=== PATIENT | male | born 1940 | race Caucasian/White ===

== ENCOUNTER 2021-08-16 13:15 | Outpatient (RCR) | payer MEDICARE, SELFPAY ==
[2021-07-27 09:43] VITALS: BP 138/80; PULSE 103; TEMP 36.1; BMI 21.7
--- NOTE | 2021-07-27 14:03 | HP.PCM_ITS ---
History of Present Illness Date of Service: 07/27/21 Chief Complaint: left medial ankle ulcer History of Wound: Viral is a pleasant 81-year-old male who presents to the wound healing center for an initial evaluation of his left medial ankle ulcer. He has a past medical history significant for liver transplant (in 1998), thrombocytopenia, stage III CKD, tobacco abuse, and left ankle fracture (in 1959). He states that following his ankle fracture in 1959, a screw was placed in his left ankle. The left ankle screw subsequently became infected and was removed. Since that time, he has had frequent occurrence of left ankle ulcers. These ulcers have occurred at various sites within the medial left ankle region. He has previously been seen by [facility] wound care for his left ankle ulcers. He states that this particular left medial ankle ulcer onset approximately 2 mo nths ago. He has been using Anasept ointment daily to his medial left ankle ulcer (which he had previously received from [facility] wound center). He is washing his ankle ulcer with antibacterial soap and water. He does not use compression. The patient denies fever, chills, general malaise, or poor appetite. The patient has not had increased redness, swelling, or purulent/malodorous drainage from affected area. He has not had any recent wound cultures. He had lab work in April 2021, which was reviewed today, and was significant for chronic kidney disease (creatinine 1.70, estimated GFR 39), and low platelets (130). He reports that at some point he did undergo vascular studies of his lower extremities at the [facility], but does not recall when these were completed. [facility] Medical History (Updated 07/27/21 @ 14:16 by Мария Donovan YARN EXAMINER, YARN EXAMINER-C) History of fracture of left ankle Stage III chronic kidney disease Tobacco use Venous stasis ulcer of 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 ROS Constitutional Constitutional: Denies chills, fever(s) or night sweats Eyes Eyes: Denies change in vision or double vision ENT HEENT: Denies lip swelling or tongue swelling Cardiovascular Cardiovascular: Denies chest pain, leg edema or palpitations Respiratory/Chest Respiratory/Chest: Denies cough or wheezing Gastrointestinal Gastrointestinal: Denies diarrhea, nausea or vomiting Genitourinary Genitourinary: Denies dysuria or hematuria Musculoskeletal Musculoskeletal: Denies extremity pain Integumentary Integumentary: Reports wounds; Denies rash Neurologic Neurologic: Denies abnormal speech or focal weakness Endocrine Endocrinology: Denies cold intolerance, heat intolerance, polydipsia or polyuria Hematologic/Lymphatic Hematologic/Lymphatic: Reports easy bleeding and easy bruising Vital Signs Vital Signs Vital Signs: 07/27/21 09:43 Temperature 96.9 F L Temperature Source Temporal Pulse Rate 103 H Blood Pressure 138/80 H Blood Pressure Mean 99 Blood Pressure Source Monitor Weight Weight: 135 lb Body Mass Index (BMI) 21.7 Physical Exam Const alert, no apparent distress and healthy appearing General Appearance: cooperative, comfortable and well kempt HEENT Head and Scalp: normocephalic and atraumatic Eyes EOMs intact bilaterally Neck supple and no JVD Resp normal respiratory effort, normal air movement and no use of accessory muscles Auscultation: clear to auscultation bilaterally; Negative for crackles, rales, rhonchi or wheezes Cardio regular rate and regular rhythm GI normal to inspection, nondistended, normoactive bowel sounds Extremity normal capillary refill, no joint enlargement and no calf tenderness General Extremity: edema left lower extremity mild Peripheral Pulses: Yes dorsalis pedis pulses present left 2+ Skin General Skin Exam: venous stasis Wounds: wounds noted No malodorous Wound Narrative: Medial left ankle ulcer with subcutaneous layer exposed. No tunneling, undermining, or probing to bone. No periulcer erythema or warmth. No significant tenderness to palpation. No purulent/malodorous drainage. Neuro moves all extremities and no focal motor deficits Psych mental status grossly normal, cooperative and affect normal Debridement Note Debridement Note Wound debrided: Medial left ankle ulcer Laterality: Left Type of Debridement: Excisional debridement Anesthesia Used: 5% Lidocaine Gel Depth: in the subcutaneous layer Percentage of wound debrided: 100 Instrument Used: 5mm curette Tissue Removed: Slough and devitalized tissue Severity: Fat Layer Exposed Amount of bleeding with debridement: Mild Bleeding Controlled with: Pressure Patient tolerated procedure: Patient tolerated procedure well Post-Debridement Measurements and Additional Note: Post-Debridement Measurements/Treatment WC - Nurse 1 - General Ulcer Assessment Start: 07/27/21 09:41 Freq: Status: Active Protocol: BYRON Activity Type Activity Date Activity User E-Sign Co-Sign Detail Recorded Client Recorded Date Recorded By Document 07/27/21 09:43 KEN [id number] 07/27/21 09:50 KEN 07/27/21 09:43 WC - Today's Visit Information Type of service Initial Visit Arrival Mode Ambulatory Patient Identification Verified (Name & Yes ) Patient Requires Transmission-Based No Precautions Height and Weight Height 5 ft 6 in Weight 135 lb Weight in Pounds 135.0 lbs Body Mass Index (BMI) 21.7 BMI Classification Normal BSA - [place] 1.69 Vital Signs Temperature (97.8 F-99.1 F) 96.9 F L Temperature Source Temporal Pulse Rate (60-100) 103 H Pulse Location Monitor Blood Pressure (90/60-120/80) 138/80 H Blood Pressure Mean (mm Hg) 99 Source Monitor History Since Last Visit- (Skip if this is Patient's initial visit) Left Footwear Regular Shoe Right Footwear Regular Shoe Lower Extremity Assessment/ Foot Assessment/ Toe Nail Assessment Left -Polpliteal Pulses Palpable Yes -Popliteal Doppler Multiphasic -Posterior Tibial Palpable Yes -Posterior Tibial Doppler Multiphasic -Hair Growth on Legs Yes -Hair Growth on Toes Yes -Capillary Refill Less than 3 Seconds -Thick Yes -Discolored Yes WC - Nurse 1 - General Ulcer Measurement Start: 07/27/21 09:41 Freq: Status: Active Protocol: Activity Type Activity Date Activity User E-Sign Co-Sign Detail Recorded Client Recorded Date Recorded By Document 07/27/21 09:43 KEN [id number] 07/27/21 09:50 KEN 07/27/21 09:43 Wound Center Nurse 1 #1 L medial ankle -Current Size (cm) - Length 1.1 -Current Size (cm) - Width 2 -Current Size (cm) - Depth 0.2 -Total Square Cm 2.2 -Date of Last Picture (Recall this 07/27/21 field) -Photo Taken Yes -Epithelialization None Present -Tunneling No -Undermining/Tunneling No -Circular Undermining No -Exudate Amt Medium -Exudate Type Serosanguineous -Wound Margin Distinct, Outline Attached -Granulation Amt None Present (0 %) -Slough/Fibrin Yes -Necrosis Amt Large (67-100%) -Necrotic Tissue Type Adherent Slough -Structure Exposed N/A -Texture (Prema-wound Skin Appearance) No Abnormality, Assessed -Moisture (Prema-wound Skin Appearance) No Abnormality, Assessed -Color (Prema-wound Skin Appearance) No Abnormality, Assessed -Temperature (Prema-wound Skin No Abnormality Appearance) (Pt Warm) -Tenderness on Palpation (Prema-wound No Skin Appearance) -Ulcer Cleansing Soap and Water -Foul Odor after Cleansing No -Anesthetic Used 5% Lidocaine Gel Right Calf (cm) 29 Right Ankle (cm) 21 Left Calf (cm) 28.5 Left Ankle (cm) 23 WC - Nurse 2 - General Ulcer CM Notes Start: 07/27/21 09:41 Freq: Status: Active Protocol: Activity Type Activity Date Activity User E-Sign Co-Sign Detail Recorded Client Recorded Date Recorded By Document 07/27/21 13:33 PL [id number] 07/27/21 13:35 PL 07/27/21 13:33 Wound Center Nurse 2 #1 L medial ankle -Time 10:20 -Correct Patient Yes -Correct Side, Site, Position Yes -Correct Procedure Yes -Procedure Performed Yes -Type of Procedure Debridement -Clinical Debridement Subcutaneous -Tissue Removed Subcutaneous -Post Debridement (cm) - Length 1.5 -Post Debridement (cm) - Width 2.5 -Post Debridement (cm) - Depth 0.2 -Total Square (Post) (cm) 3.75 -Area of Debridement (cm) - Length 1.5 -Area of Debridement (cm) - Width 2.5 -Total Square (Area) (cm) 3.75 -Tunneling No -Undermining/Tunneling No -Circular Undermining No -Wound/Ulcer Outcome Not Healed -Ulcer Cleansing Rinsed/ Irrigated with Saline -Foul Odor after Cleansing No -Bioengineered Tissue No -Bleeding Controlled with Pressure -Treatment Response Procedure Tolerated Well -Debridement - Subq, 1st 20sq cm Yes WC - Nurse 3 - General Ulcer D/C NN Start: 07/27/21 09:41 Freq: Status: Active Protocol: Activity Type Activity Date Activity User E-Sign Co-Sign Detail Recorded Client Recorded Date Recorded By Document 07/27/21 10:46 AK [id number] 07/27/21 10:47 AK 07/27/21 10:46 Wound Care Nurse 3 -Ulcer Cleansing Rinsed/ Irrigated with Saline -Foul Odor after Cleansing No -Negative Pressure Wound Therapy N/A -Primary Dressing Applied Aquacel AG 4x4 -Primary Dressing Covered/Secured with Dry Gauze, Secured with Tape -Aquacel AG 4x4 1 Left -Tubular Bandage Double Layer -Size of Tubigrip Used Size E -Size E ($) 2 WC - Visit Discharge Discharge Condition Stable Ambulatory Status Ambulatory Transportation Private Auto Medication Reconcilliation completed & No provided to patient/care provider Clinical Summary of Care Provided Yes Charges/Coding Visit Charges Office Visits / Consults: [id number] OV L4 New Procedures Integumentary [id number]: [id number] Lary subq tissue 20 sq cm/< Assessment/Plan Assessment/Plan (1) Venous stasis ulcer of 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: CODE(S): I83.023 - Varicose veins of left lower extremity with ulcer of ankle; L97.322 - Non-pressure chronic ulcer of 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 QUALIFIERS: Varicose vein presence: with varicose veins Qualified Code(s): I83.023 - Varicose veins of left lower extremity with ulcer of ankle; L97.322 - Non-pressure chronic ulcer of 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 (2) Tobacco use: CODE(S): Z72.0 - Tobacco use (3) Stage III chronic kidney disease: CODE(S): N18.30 - Chronic kidney disease, stage 3 unspecified QUALIFIERS: Chronic kidney disease stage 3 subtype: stage 3b (GFR 30-44) Qualified Code(s): N18.32 - Chronic kidney disease, stage 3b (4) History of fracture of left ankle: CODE(S): Z87.81 - Personal history of (healed) traumatic fracture PLAN: Debridement performed today in clinic as annotated above. Aquacel Ag applied. Double Tubigrip's applied for compression. At home wound-care instructions: Change dressing once daily or more frequently as needed due to contamination. Wash wounds daily with antibacterial soap and water, rinse and dry thoroughly before each dressing change. Compression: Wear double Tubigrip's daily. These may be removed at bedtime, but should be reapplied in the morning before getting out of bed. Off-loading: The patient was instructed to avoid pressure and friction on the affected areas. Reposition every 2 hours at minimum. Avoid prolonged standing and/or dangling of legs. When seated, feet should be elevated at chest level. Frequent ambulation is encouraged. Diet: Patient encouraged to increase protein intake while taking caution to avoid high carbohydrate and/or sugar intake. Smoking: The risks of smoking and benefits of smoking cessation were discussed with the patient today. The patient is encouraged to quit smoking. If smoking cessation aids are desired, the patient should contact their primary care provider to discuss appropriate options. Labs/cultures/imaging: Cultures ordered and collected today. If warranted, antibiotics will be initiated based on culture results. Lab work from April 2021 reviewed, as above. Vascular studies will be requested from the [facility]. Follow-up: Return to clinic in 1 week for re-evaluation. Return sooner or report to the emergency room should symptoms worsen, or new symptoms arise. Note: [employer] speech recognition marketing research analyst software was used to create portions of this document. Sound-alike and misspelled words, as well as other marketing research analyst errors may be contained in the documentation.
[2021-08-03 09:08] VITALS: BP 147/54; PULSE 59; RESP 16; TEMP 36.3; BMI 21.7
--- NOTE | 2021-08-03 11:48 | PN.PCM_ITS ---
History of Present Illness Date of Service: 08/03/21 Chief Complaint: left medial ankle ulcer History of Wound: Viral is a pleasant 81-year-old male who presents to the wound healing center for an initial evaluation of his left medial ankle ulcer. He has a past medical history significant for liver transplant (in 1998), thrombocytopenia, stage III CKD, tobacco abuse, and left ankle fracture (in 1959). He states that following his ankle fracture in 1959, a screw was placed in his left ankle. The left ankle screw subsequently became infected and was removed. Since that time, he has had frequent occurrence of left ankle ulcers. These ulcers have occurred at various sites within the medial left ankle region. He has previously been seen by [facility] wound care for his left ankle ulcers. He states that this particular left medial ankle ulcer onset approximately 2 mo nths ago. He has been using Anasept ointment daily to his medial left ankle ulcer (which he had previously received from [facility] wound center). He is washing his ankle ulcer with antibacterial soap and water. He does not use compression. The patient denies fever, chills, general malaise, or poor appetite. The patient has not had increased redness, swelling, or purulent/malodorous drainage from affected area. He has not had any recent wound cultures. He had lab work in April 2021, which was reviewed today, and was significant for chronic kidney disease (creatinine 1.70, estimated GFR 39), and low platelets (130). He reports that at some point he did undergo vascular studies of his lower extremities at the [facility], but does not recall when these were completed. Progress of Wound: Patient's wound is improved in size and appearance this week. He has been compliant with the use of Aquacel Ag dressings, however he has been covering these with a Telfa pad. The patient denies fever, chills, general malaise, or poor appetite. The patient has not had increased redness, swelling, or purulent/malodorous drainage from af fected area. His cultures were positive (07/27/2021) for very rare Staphylococcus pseudointermedius (possible skin contamination); anaerobic cocci were also detected. He was started on cephalexin 500 mg every 12 hours x7 days, and is tolerating this well. Objective Data Objective Data Vital Signs: Vital Signs Temp Pulse Resp BP 97.4 F L 59 L 16 147/54 H 08/03/21 09:08 08/03/21 09:08 08/03/21 09:08 08/03/21 09:08 Oxygen Delivery Method Room Air Weight: 135 lb Body Mass Index (BMI) 21.7 Lab / Micro Data Micro: Microbiology 07/27/21 10:25 Wound Abcess - Ankle Gram Stain - Final 07/27/21 10:25 Wound Abcess - Ankle Wound Culture - Final Staphylococcus pseudintermediu 07/27/21 10:25 Wound Abcess - Ankle Anaerobic Culture - Final Anaerobic cocci Charges/Coding Procedures Integumentary [id number]: [id number] Lary subq tissue 20 sq cm/< Physical Exam Const alert, no apparent distress and healthy appearing General Appearance: cooperative, comfortable and well kempt HEENT Head and Scalp: normocephalic and atraumatic Eyes EOMs intact bilaterally Neck supple and no JVD Resp normal respiratory effort, normal air movement and no use of accessory muscles Auscultation: clear to auscultation bilaterally GI Negative for normal to inspection, nondistended, normoactive bowel sounds Extremity normal capillary refill, no joint enlargement and no calf tenderness General Extremity: edema left lower extremity trace Peripheral Pulses: Yes dorsalis pedis pulses present left 2+ Skin General Skin Exam: venous stasis Wounds: wounds noted No malodorous Wound Narrative: Medial left ankle ulcer with subcutaneous layer exposed. Small amount of devitalized tissue present. No tunneling, undermining, or probing to bone. No periulcer erythema or warmth. No significant tenderness to palpation. No purulent/malodorous drainage. Neuro moves all extremities and no focal motor deficits Psych mental status grossly normal, cooperative and affect normal Debridement Note Debridement Note Wound debrided: Medial left ankle ulcer Laterality: Left Type of Debridement: Excisional debridement Anesthesia Used: 4% Lidocaine Solution Depth: in the subcutaneous layer Percentage of wound debrided: 100 Instrument Used: 3mm curette Tissue Removed: Slough and devitalized tissue Severity: Fat Layer Exposed Amount of bleeding with debridement: Mild Bleeding Controlled with: Pressure Patient tolerated procedure: Patient tolerated procedure well Post-Debridement Measurements and Additional Note: Post-Debridement Measurements/Treatment WC - Nurse 1 - General Ulcer Assessment Start: 07/27/21 09:41 Freq: Status: Active Protocol: WC.LOWEXT Activity Type Activity Date Activity User E-Sign Co-Sign Detail Recorded Client Recorded Date Recorded By Document 07/27/21 09:43 NM [id number] 07/27/21 09:50 AK Document 08/03/21 09:08 [facility] [id number] 08/03/21 09:16 [facility] 07/27/21 08/03/21 09:43 09:08 WC - Today's Visit Information Type of service Initial Visit Follow-up Visit (Physician/COMMUNICATIONS SUPERVISOR ) Arrival Mode Ambulatory Ambulatory Patient Identification Verified (Name & Yes Yes ) Patient Requires Transmission-Based No No Precautions Height and Weight Height 5 ft 6 in Weight 135 lb Weight in Pounds 135.0 lbs Body Mass Index (BMI) 21.7 21.7 BMI Classification Normal Normal BSA - Yuko 1.69 Vital Signs Temperature (97.8 F-99.1 F) 96.9 F L 97.4 F L Temperature Source Temporal Temporal Pulse Rate (60-100) 103 H 59 L Pulse Location Monitor Monitor Respiratory Rate (12-18) 16 Respiratory rate source Observation Oxygen Delivery Method Room Air Blood Pressure (90/60-120/80) 138/80 H 147/54 H Blood Pressure Mean (mm Hg) 99 85 Source Monitor Monitor Position Sitting Blood Pressure Location Left Forearm Have you changed medications since your No last visit? Any new allergies or adverse reactions No Had a fall/change in ADL's that may No increase risk of falls Have you been in the hospital since your No last visit? Has dressing in place as prescribed Yes Has compression in place as prescribed Yes Has offloadiing in place as prescribed N/A Experienced any changes in pain level or No management History Since Last Visit- (Skip if this is Patient's initial visit) Left Footwear Regular Shoe Regular Shoe Right Footwear Regular Shoe Regular Shoe Pain Scale: 0-10 Numeric Is Patient Pain Free? Yes Lower Extremity Assessment/ Foot Assessment/ Toe Nail Assessment Left -Polpliteal Pulses Palpable Yes -Popliteal Doppler Multiphasic -Posterior Tibial Palpable Yes -Posterior Tibial Doppler Multiphasic -Hair Growth on Legs Yes -Hair Growth on Toes Yes -Capillary Refill Less than 3 Seconds -Thick Yes -Discolored Yes WC - Nurse 1 - General Ulcer Measurement Start: 07/27/21 09:41 Freq: Status: Active Protocol: Activity Type Activity Date Activity User E-Sign Co-Sign Detail Recorded Client Recorded Date Recorded By Document 07/27/21 09:43 AK [id number] 07/27/21 09:50 AK Document 08/03/21 09:08 [facility] [id number] 08/03/21 09:16 [facility] 07/27/21 08/03/21 09:43 09:08 Wound Center Nurse 1 #1 L medial ankle -Combined with other wound No -Current Size (cm) - Length 1.1 1.7 -Current Size (cm) - Width 2 1.9 -Current Size (cm) - Depth 0.2 0.3 -Total Square Cm 2.2 3.23 -Date of Last Picture (Recall this 07/27/21 field) -Photo Taken Yes No -Epithelialization None Present None Present -Tunneling No No -Undermining/Tunneling No No -Circular Undermining No No -Exudate Amt Medium Medium -Exudate Type Serosanguineous Serosanguineous -Wound Margin Distinct, Distinct, Outline Outline Attached Attached -Granulation Amt None Present (0 None Present (0 %) %) -Slough/Fibrin Yes Yes -Necrosis Amt Large (67-100%) Large (67-100%) -Necrotic Tissue Type Adherent Slough Adherent Slough -Structure Exposed N/A -Texture (Prema-wound Skin Appearance) No Abnormality, Assessed, Assessed Scarring -Moisture (Prema-wound Skin Appearance) No Abnormality, Assessed,Dry/ Assessed Scaly -Color (Prema-wound Skin Appearance) No Abnormality, Assessed, Assessed Erythema -Temperature (Prema-wound Skin No Abnormality No Abnormality Appearance) (Pt Warm) (Pt Warm) -Tenderness on Palpation (Prema-wound No No Skin Appearance) -Ulcer Cleansing Soap and Water Rinsed/ Irrigated with Saline -Foul Odor after Cleansing No No -Anesthetic Used 5% Lidocaine 5% Lidocaine Gel Gel Lower Limb Edema Present Yes Right Calf (cm) 29 Right Ankle (cm) 21 Left Calf (cm) 28.5 27.9 Left Ankle (cm) 23 20.9 WC - Nurse 2 - General Ulcer CM Notes Start: 07/27/21 09:41 Freq: Status: Active Protocol: Activity Type Activity Date Activity User E-Sign Co-Sign Detail Recorded Client Recorded Date Recorded By Document 07/27/21 13:33 PL [id number] 07/27/21 13:35 PL 07/27/21 13:33 Wound Center Nurse 2 #1 L medial ankle -Time 10:20 -Correct Patient Yes -Correct Side, Site, Position Yes -Correct Procedure Yes -Procedure Performed Yes -Type of Procedure Debridement -Clinical Debridement Subcutaneous -Tissue Removed Subcutaneous -Post Debridement (cm) - Length 1.5 -Post Debridement (cm) - Width 2.5 -Post Debridement (cm) - Depth 0.2 -Total Square (Post) (cm) 3.75 -Area of Debridement (cm) - Length 1.5 -Area of Debridement (cm) - Width 2.5 -Total Square (Area) (cm) 3.75 -Tunneling No -Undermining/Tunneling No -Circular Undermining No -Wound/Ulcer Outcome Not Healed -Ulcer Cleansing Rinsed/ Irrigated with Saline -Foul Odor after Cleansing No -Bioengineered Tissue No -Bleeding Controlled with Pressure -Treatment Response Procedure Tolerated Well -Debridement - Subq, 1st 20sq cm Yes WC - Nurse 3 - General Ulcer D/C NN Start: 07/27/21 09:41 Freq: Status: Active Protocol: Activity Type Activity Date Activity User E-Sign Co-Sign Detail Recorded Client Recorded Date Recorded By Document 07/27/21 10:46 KEN [id number] 07/27/21 10:47 AK Document 08/03/21 10:08 NM [id number] 08/03/21 10:08 AK 07/27/21 08/03/21 10:46 10:08 Wound Care Nurse 3 #1 L medial ankle -Ulcer Cleansing Rinsed/ Rinsed/ Irrigated with Irrigated with Saline Saline -Foul Odor after Cleansing No No -Negative Pressure Wound Therapy N/A N/A -Primary Dressing Applied Aquacel AG 4x4 Aquacel AG 4x4 -Primary Dressing Covered/Secured with Dry Gauze, Dry Gauze, Secured with Secured with Tape Tape -Aquacel AG 4x4 1 1 Left -Tubular Bandage Double Layer -Size of Tubigrip Used Size E -Size E ($) 2 WC - Visit Discharge Discharge Condition Stable Stable Ambulatory Status Ambulatory Ambulatory Transportation Private Auto Private Auto Medication Reconcilliation completed & No No provided to patient/care provider Clinical Summary of Care Provided Yes Yes Assessment/Plan Assessment/Plan (1) Venous stasis ulcer of 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: CODE(S): I83.023 - Varicose veins of left lower extremity with ulcer of ankle; L97.322 - Non-pressure chronic ulcer of 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 QUALIFIERS: Varicose vein presence: with varicose veins Qualified Code(s): I83.023 - Varicose veins of left lower extremity with ulcer of ankle; L97.322 - Non-pressure chronic ulcer of 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 (2) Tobacco use: CODE(S): Z72.0 - Tobacco use (3) Stage III chronic kidney disease: CODE(S): N18.30 - Chronic kidney disease, stage 3 unspecified QUALIFIERS: Chronic kidney disease stage 3 subtype: stage 3b (GFR 30-44) Qualified Code(s): N18.32 - Chronic kidney disease, stage 3b (4) History of fracture of left ankle: CODE(S): Z87.81 - Personal history of (healed) traumatic fracture PLAN: Debridement performed today in clinic as annotated above. Aquacel Ag applied. Double Tubigrip's applied for compression. Given the duration of the wound and failure of the wound to respond to standard wound care, we will apply for advanced skin substitutes (EpiFix). At home wound-care instructions: Change Aquacel Ag dressing once daily or more frequently as needed due to contamination. Wash wounds daily with antibacterial soap and water, rinse and dry thoroughly before each dressing change. Cover with gauze. (Do not use Telfa or outer dressing.) Compression: Wear double Tubigrip's daily. These may be removed at bedtime, but should be reapplied in the morning before getting out of bed. Off-loading: The patient was instructed to avoid pressure and friction on the affected areas. Reposition every 2 hours at minimum. Avoid prolonged standing and/or dangling of legs. When seated, feet should be elevated at chest level. Frequent ambulation is encouraged. Diet: Patient encouraged to increase protein intake while taking caution to avoid high carbohydrate and/or sugar intake. Smoking: The risks of smoking and benefits of smoking cessation have been disc ussed with the patient today. The patient has been encouraged to quit smoking. If smoking cessation aids are desired, the patient should contact their primary care provider to discuss appropriate options. Labs/cultures/imaging: Cultures (07/27/2021) positive for very rare Staphylococcus pseudointermedius (possible skin contamination); anaerobic cocci also detected. Patient was started on cephalexin 500 mg every 12 hours x7 days. This will be continued until course is complete. Lab work from April 2021 reviewed, as above. Vascular studies not yet received from the [facility]. Follow-up: Return to clinic in 2 weeks for re-evaluation with Delano Chinchilla NP. Return to clinic on 08/31/2021 for reevaluation with me (NORMAN Mendez). Return sooner or report to the emergency room should symptoms worsen, or new symptoms arise. Note: [employer] speech recognition actuarial director software was used to create portions of this document. Sound-alike and misspelled words, as well as other actuarial director errors may be contained in the documentation.
[2021-08-16 13:38] VITALS: BP 158/65; PULSE 57; RESP 18; TEMP 36.4; BMI 21.7
--- NOTE | 2021-08-16 23:22 | PCM.WC.PN ---
History of Present Illness Date of Service: 08/16/21 Chief Complaint: left medial ankle ulcer History of Wound: Viral is a pleasant 81-year-old male who presents to the wound healing center for an initial evaluation of his left medial ankle ulcer. He has a past medical history significant for liver transplant (in 1998), thrombocytopenia, stage III CKD, tobacco abuse, and left ankle fracture (in 1959). He states that following his ankle fracture in 1959, a screw was placed in his left ankle. The left ankle screw subsequently became infected and was removed. Since that time, he has had frequent occurrence of left ankle ulcers. These ulcers have occurred at various sites within the medial left ankle region. He has previously been seen by [facility] wound care for his left ankle ulcers. He states that this particular left medial ankle ulcer onset approximately 2 months ago. He has been using Anasept ointment daily to his medial left ankle ulcer (which he had previously received from [facility] wound center). He is washing his ankle ulcer with antibacterial soap and water. He does not use compression. The patient denies fever, chills, general malaise, or poor appetite. The patient has not had increased redness, swelling, or purulent/malodorous drainage from affected area. He has not had any recent wound cultures. He had lab work in April 2021, which was reviewed today, and was significant for chronic kidney disease (creatinine 1.70, estimated GFR 39), and low platelets (130). He reports that at some point he did undergo vascular studies of his lower extremities at the [facility], but does not recall when these were completed. Progress of Wound: Courtesy visit for Мария AUSTIN?patient's wound is improved in size and appearance this week. He has been compliant with the use of Aquacel Ag dressings. The patient denies fever, chills, general malaise, or poor appetite. The patient has not had increased redness, swelling, or purulent/malodorous drainage from affected area. His cultures were positive (07/27/2021) for very rare Staphylococcus pseudointermedius (possible skin contamination); anaerobic cocci were also detected. He was started on cephalexin 500 mg every 12 hours x7 days, and completed this. Objective Data Objective Data Vital Signs: Vital Signs Temp Pulse Resp BP 97.6 F L 57 L 18 158/65 H 08/16/21 13:38 08/16/21 13:38 08/16/21 13:38 08/16/21 13:38 Oxygen Delivery Method Room Air Weight: 135 lb Body Mass Index (BMI) 21.7 Lab / Micro Data Micro: Microbiology 07/27/21 10:25 Wound Abcess - Ankle Gram Stain - Final 07/27/21 10:25 Wound Abcess - Ankle Wound Culture - Final Staphylococcus pseudintermediu 07/27/21 10:25 Wound Abcess - Ankle Anaerobic Culture - Final Anaerobic cocci Charges/Coding Procedures Integumentary [id number]: [id number] Lary subq tissue 20 sq cm/< Physical Exam Const alert, no apparent distress and healthy appearing General Appearance: cooperative, comfortable and well kempt HEENT Head and Scalp: normocephalic and atraumatic Eyes EOMs intact bilaterally Neck supple and no JVD Resp normal respiratory effort, normal air movement and no use of accessory muscles Auscultation: clear to auscultation bilaterally GI Negative for normal to inspection, nondistended, normoactive bowel sounds Extremity normal capillary refill, no joint enlargement and no calf tenderness General Extremity: edema left lower extremity trace Peripheral Pulses: Yes dorsalis pedis pulses present left 2+ Skin General Skin Exam: venous stasis Wounds: wounds noted No malodorous Wound Narrative: Medial left ankle ulcer with subcutaneous layer exposed. Small amount of devitalized tissue present. No tunneling, undermining, or probing to bone. No periulcer erythema or warmth. No significant tenderness to palpation. No purulent/malodorous drainage. Neuro moves all extremities and no focal motor deficits Psych mental status grossly normal, cooperative and affect normal Debridement Note Debridement Note Wound debrided: Left medial ankle ulcer Laterality: Left Type of Debridement: Excisional debridement Anesthesia Used: 5% Lidocaine Gel Depth: in the subcutaneous layer Percentage of wound debrided: 100 Instrument Used: 3mm curette Tissue Removed: Slough and devitalized tissue Severity: Fat Layer Exposed Amount of bleeding with debridement: Mild Bleeding Controlled with: Pressure Patient tolerated procedure: Patient tolerated procedure well Post-Debridement Measurements and Additional Note: Post-Debridement Measurements/Treatment KYARA - Nurse 1 - General Ulcer Assessment Start: 07/27/21 09:41 Freq: Status: Active Protocol: BYRON Activity Type Activity Date Activity User E-Sign Co-Sign Detail Recorded Client Recorded Date Recorded By Document 07/27/21 09:43 AK [id number] 07/27/21 09:50 AK Document 08/03/21 09:08 [facility] [id number] 08/03/21 09:16 [facility] Document 08/16/21 13:38 RB [id number] 08/16/21 13:46 RB 07/27/21 08/03/21 08/16/21 09:43 09:08 13:38 WC - Today's Visit Information Type of service Initial Visit Follow-up Visit Follow-up Visit (Physician/CLOUD INFRASTRUCTURE ARCHITECT (Physician/CLOUD INFRASTRUCTURE ARCHITECT ) ) Arrival Mode Ambulatory Ambulatory Ambulatory Transfer Assistance None Patient Identification Verified (Name & Yes Yes Yes ) Patient Requires Transmission-Based No No Precautions Height and Weight Height 5 ft 6 in Weight 135 lb Weight in Pounds 135.0 lbs Body Mass Index (BMI) 21.7 21.7 21.7 BMI Classification Normal Normal Normal BSA - [place] 1.69 Vital Signs Temperature (97.8 F-99.1 F) 96.9 F L 97.4 F L 97.6 F L Temperature Source Temporal Temporal Temporal Pulse Rate (60-100) 103 H 59 L 57 L Pulse Location Monitor Monitor Monitor Respiratory Rate (12-18) 16 18 Respiratory rate source Observation Observation Oxygen Delivery Method Room Air Blood Pressure (90/60-120/80) 138/80 H 147/54 H 158/65 H Blood Pressure Mean (mm Hg) 99 85 96 Source Monitor Monitor Monitor Position Sitting Semi-Fowlers Blood Pressure Location Left Forearm Left Arm Have you changed medications since your No No last visit? Any new allergies or adverse reactions No No Had a fall/change in ADL's that may No No increase risk of falls Signs or symptoms of abuse and/or No neglect since last visit Have you been in the hospital since your No No last visit? Has dressing in place as prescribed Yes Yes Has compression in place as prescribed Yes Yes Has offloadiing in place as prescribed N/A No Experienced any changes in pain level or No No management History Since Last Visit- (Skip if this is Patient's initial visit) Left Footwear Regular Shoe Regular Shoe Right Footwear Regular Shoe Regular Shoe Pain Scale: 0-10 Numeric Is Patient Pain Free? Yes Lower Extremity Assessment/ Foot Assessment/ Toe Nail Assessment Left -Polpliteal Pulses Palpable Yes -Popliteal Doppler Multiphasic -Posterior Tibial Palpable Yes -Posterior Tibial Doppler Multiphasic -Hair Growth on Legs Yes -Hair Growth on Toes Yes -Capillary Refill Less than 3 Seconds -Thick Yes -Discolored Yes WC - Nurse 1 - General Ulcer Measurement Start: 07/27/21 09:41 Freq: Status: Active Protocol: Activity Type Activity Date Activity User E-Sign Co-Sign Detail Recorded Client Recorded Date Recorded By Document 07/27/21 09:43 AK [id number] 07/27/21 09:50 AK Document 08/03/21 09:08 [facility] [id number] 08/03/21 09:16 [facility] Document 08/16/21 13:38 RB [id number] 08/16/21 13:46 RB 07/27/21 08/03/21 08/16/21 09:43 09:08 13:38 Wound Center Nurse 1 #1 L medial ankle -Combined with other wound No No -Current Size (cm) - Length 1.1 1.7 1.2 -Current Size (cm) - Width 2 1.9 2 -Current Size (cm) - Depth 0.2 0.3 0.2 -Total Square Cm 2.2 3.23 2.4 -Date of Last Picture (Recall this 07/27/21 field) -Photo Taken Yes No -Epithelialization None Present None Present -Tunneling No No No -Undermining/Tunneling No No No -Circular Undermining No No No -Exudate Amt Medium Medium Medium -Exudate Type Serosanguineous Serosanguineous Serosanguineous -Wound Margin Distinct, Distinct, Flat & Intact Outline Outline Attached Attached -Granulation Amt None Present (0 None Present (0 Medium (34-66%) %) %) -Granulation Quality [place] -Slough/Fibrin Yes Yes Yes -Necrosis Amt Large (67-100%) Large (67-100%) Small (1-33%) -Necrotic Tissue Type Adherent Slough Adherent Slough Adherent Slough -Structure Exposed N/A N/A -Texture (Prema-wound Skin Appearance) No Abnormality, Assessed, Assessed Assessed Scarring -Moisture (Prema-wound Skin Appearance) No Abnormality, Assessed,Dry/ Assessed Assessed Scaly -Color (Prema-wound Skin Appearance) No Abnormality, Assessed, Assessed, Assessed Erythema Hemosiderin Staining -Temperature (Prema-wound Skin No Abnormality No Abnormality No Abnormality Appearance) (Pt Warm) (Pt Warm) (Pt Warm) -Tenderness on Palpation (Prema-wound No No No Skin Appearance) -Ulcer Cleansing Soap and Water Rinsed/ Wound Cleanser Irrigated with Saline -Foul Odor after Cleansing No No -Anesthetic Used 5% Lidocaine 5% Lidocaine 5% Lidocaine Gel Gel Gel Lower Limb Edema Present Yes Yes Right Calf (cm) 29 Right Ankle (cm) 21 Left Calf (cm) 28.5 27.9 28.2 Left Ankle (cm) 23 20.9 23 WC - Nurse 2 - General Ulcer CM Notes Start: 07/27/21 09:41 Freq: Status: Active Protocol: Activity Type Activity Date Activity User E-Sign Co-Sign Detail Recorded Client Recorded Date Recorded By Document 07/27/21 13:33 PL [id number] 07/27/21 13:35 PL Document 08/03/21 12:48 PL [id number] 08/03/21 12:49 PL Document 08/16/21 14:15 MW [id number] 08/16/21 14:19 MW 07/27/21 08/03/21 08/16/21 13:33 12:48 14:15 Wound Center Nurse 2 #1 L medial ankle -Time 10:20 09:55 14:16 -Correct Patient Yes Yes Yes -Correct Side, Site, Position Yes Yes Yes -Correct Procedure Yes Yes Yes -Procedure Performed Yes Yes Yes -Type of Procedure Debridement Debridement Debridement -Clinical Debridement Subcutaneous Subcutaneous Subcutaneous -Tissue Removed Subcutaneous Subcutaneous Subcutaneous -Post Debridement (cm) - Length 1.5 1.3 1.7 -Post Debridement (cm) - Width 2.5 2.2 2.0 -Post Debridement (cm) - Depth 0.2 0.2 0.3 -Total Square (Post) (cm) 3.75 2.86 3.40 -Area of Debridement (cm) - Length 1.5 1.3 1.7 -Area of Debridement (cm) - Width 2.5 2.2 2.0 -Total Square (Area) (cm) 3.75 2.86 3.40 -Tunneling No No No -Undermining/Tunneling No No No -Circular Undermining No No No -Wound/Ulcer Outcome Not Healed Not Healed Not Healed -Ulcer Cleansing Rinsed/ Rinsed/ Rinsed/ Irrigated with Irrigated with Irrigated with Saline Saline Saline -Foul Odor after Cleansing No No No -Bioengineered Tissue No No No -Bleeding Controlled with Pressure Pressure Pressure -Offloading No -Treatment Response Procedure Procedure Procedure Tolerated Well Tolerated Well Tolerated Well -Debridement - Subq, 1st 20sq cm Yes Yes Yes Pain Scale: 0-10 Numeric Is Patient Pain Free? Yes - Nurse 3 - General Ulcer D/C NN Start: 07/27/21 09:41 Freq: Status: Active Protocol: Activity Type Activity Date Activity User E-Sign Co-Sign Detail Recorded Client Recorded Date Recorded By Document 07/27/21 10:46 KEN [id number] 07/27/21 10:47 AK Document 08/03/21 10:08 AK [id number] 08/03/21 10:08 AK Document 08/16/21 14:31 RB [id number] 08/16/21 14:32 RB 07/27/21 08/03/21 08/16/21 10:46 10:08 14:31 Wound Care Nurse 3 #1 L medial ankle -Ulcer Cleansing Rinsed/ Rinsed/ Rinsed/ Irrigated with Irrigated with Irrigated with Saline Saline Saline -Foul Odor after Cleansing No No -Negative Pressure Wound Therapy N/A N/A -Primary Dressing Applied Aquacel AG 4x4 Aquacel AG 4x4 Aquacel AG 4x4 -Primary Dressing Covered/Secured with Dry Gauze, Dry Gauze, Dry Gauze, Secured with Secured with Secured with Tape Tape Tape -Aquacel AG 4x4 1 1 1 Left -Tubular Bandage Double Layer Double Layer -Size of Tubigrip Used Size E Size C -Size C ($) 2 -Size E ($) 2 Treatment Response Procedure Tolerated Well Pain Scale: 0-10 Numeric Is Patient Pain Free? Yes WC - Visit Discharge Discharge Condition Stable Stable Stable Ambulatory Status Ambulatory Ambulatory Ambulatory Transportation Private Auto Private Auto Private Auto Medication Reconcilliation completed & No No No provided to patient/care provider Clinical Summary of Care Provided Yes Yes Yes Assessment/Plan Assessment/Plan (1) Venous stasis ulcer of 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: CODE(S): I83.023 - Varicose veins of left lower extremity with ulcer of ankle; L97.322 - Non-pressure chronic ulcer of 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 QUALIFIERS: Varicose vein presence: with varicose veins Qualified Code(s): I83.023 - Varicose veins of left lower extremity with ulcer of ankle; L97.322 - Non-pressure chronic ulcer of 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 (2) Tobacco use: CODE(S): Z72.0 - Tobacco use (3) Stage III chronic kidney disease: CODE(S): N18.30 - Chronic kidney disease, stage 3 unspecified QUALIFIERS: Chronic kidney disease stage 3 subtype: stage 3b (GFR 30-44) Qualified Code(s): N18.32 - Chronic kidney disease, stage 3b (4) History of fracture of left ankle: CODE(S): Z87.81 - Personal history of (healed) traumatic fracture PLAN: Courtesy visit for Мария AUSTIN-given the duration of the wound and failure of the wound to respond to standard wound care, we will apply for advanced skin substitutes (EpiFix). At home wound-care instructions: Change Aquacel Ag dressing once daily or more frequently as needed due to contamination. Wash wounds daily with antibacterial soap and water, rinse and dry thoroughly before each dressing change. Cover with gauze. (Do not use Telfa or outer dressing.) Compression: Wear double Tubigrip's daily. These may be removed at bedtime, but should be reapplied in the morning before getting out of bed. Off-loading: The patient was instructed to avoid pressure and friction on the affected areas. Reposition every 2 hours at minimum. Avoid prolonged standing and/or dangling of legs. When seated, feet should be elevated at chest level. Frequent ambulation is encouraged. Diet: Patient encouraged to increase protein intake while taking caution to avoid high carbohydrate and/or sugar intake. Smoking: The risks of smoking and benefits of smoking cessation have been discussed with the patient today. The patient has been encouraged to quit smoking. If smoking cessation aids are desired, the patient should contact their primary care provider to discuss appropriate options. Labs/cultures/imaging: Cultures (07/27/2021) positive for very rare Staphylococcus pseudointermedius (possible skin contamination); anaerobic cocci also detected. Patient was started on cephalexin 500 mg every 12 hours x7 days which he completed. Lab work from April 2021 reviewed, as above. Vascular studies not yet received from the [facility]. Follow-up: Return to clinic in 2 weeks for re-evaluation with Delano Chinchilla NP. Return to clinic on 08/31/2021 for reevaluation with (NORMAN Mendez). Return sooner or report to the emergency room should symptoms worsen, or new symptoms arise. Note: [employer] speech recognition ply splicer software was used to create portions of this document. Sound-alike and misspelled words, as well as other ply splicer errors may be contained in the documentation.
== END 2021-08-24 23:59 ==
LOC: WC 13:15
PROVIDERS: PCP Internal Medicine; Visit Provider Nurse Practitioner Family
DX: I83.023 Varicose veins of left lower extremity with ulcer of ankle (principal); L97.322 Non-pressure chronic ulcer of 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; N18.32 Chronic kidney disease, stage 3b; Z94.4 Liver transplant status; F17.200 Nicotine dependence, unspecified, uncomplicated
CPT/HCPCS: 11042; 87070; 87075; 87077; 87186; 87205; 99213; G0463

== ENCOUNTER 2021-09-21 09:45 | Outpatient (RCR) | payer MEDICARE, SELFPAY ==
[2021-08-25 00:06] VITALS: BP 158/65; PULSE 57; RESP 18; TEMP 36.4; BMI 21.7
[2021-08-30 13:07] VITALS: BP 148/64; PULSE 58; RESP 18; TEMP 36.9; BMI 21.7
--- NOTE | 2021-08-30 19:56 | PCM.WC.PN ---
History of Present Illness Date of Service: 08/30/21 Chief Complaint: left medial ankle ulcer History of Wound: Viral is a pleasant 81-year-old male who presents to the wound healing center for an initial evaluation of his left medial ankle ulcer. He has a past medical history significant for liver transplant (in 1998), thrombocytopenia, stage III CKD, tobacco abuse, and left ankle fracture (in 1959). He states that following his ankle fracture in 1959, a screw was placed in his left ankle. The left ankle screw subsequently became infected and was removed. Since that time, he has had frequent occurrence of left ankle ulcers. These ulcers have occurred at various sites within the medial left ankle region. He has previously been seen by [facility] wound care for his left ankle ulcers. He states that this particular left medial ankle ulcer onset approximately 2 months ago. He has been using Anasept ointment daily to his medial left ankle ulcer (which he had previously received from [facility] wound center). He is washing his ankle ulcer with antibacterial soap and water. He does not use compression. The patient denies fever, chills, general malaise, or poor appetite. The patient has not had increased redness, swelling, or purulent/malodorous drainage from affected area. He has not had any recent wound cultures. He had lab work in April 2021, which was reviewed today, and was significant for chronic kidney disease (creatinine 1.70, estimated GFR 39), and low platelets (130). He reports that at some point he did undergo vascular studies of his lower extremities at the [facility], but does not recall when these were completed. Progress of Wound: Courtesy visit for Мария AUSTIN, patient's wound is stable, given the delayed healing repeat ABIs and vascular's were ordered Objective Data Objective Data Vital Signs: Vital Signs Temp Pulse Resp BP 98.5 F 58 L 18 148/64 H 08/30/21 13:07 08/30/21 13:07 08/30/21 13:07 08/30/21 13:07 Weight: 135 lb Body Mass Index (BMI) 21.7 Charges/Coding Procedures Integumentary 111xxx-113xx: [id number] Lary subq tissue 20 sq cm/< Physical Exam Const alert, no apparent distress and healthy appearing General Appearance: cooperative, comfortable and well kempt HEENT Head and Scalp: normocephalic and atraumatic Eyes EOMs intact bilaterally Neck supple and no JVD Resp normal respiratory effort, normal air movement and no use of accessory muscles Auscultation: clear to auscultation bilaterally GI Negative for normal to inspection, nondistended, normoactive bowel sounds Extremity normal capillary refill, no joint enlargement and no calf tenderness General Extremity: edema left lower extremity trace Peripheral Pulses: Yes dorsalis pedis pulses present left 2+ Skin General Skin Exam: venous stasis Wounds: wounds noted No malodorous Wound Narrative: Medial left ankle ulcer with subcutaneous layer exposed. Small amount of devitalized tissue present. No tunneling, undermining, or probing to bone. No periulcer erythema or warmth. No significant tenderness to palpation. No purulent/malodorous drainage. Neuro moves all extremities and no focal motor deficits Psych mental status grossly normal, cooperative and affect normal Debridement Note Debridement Note Wound debrided: Left medial ankle ulcer Laterality: Left Type of Debridement: Excisional debridement Anesthesia Used: 5% Lidocaine Gel Depth: in the subcutaneous layer Percentage of wound debrided: 100 Instrument Used: 5mm curette Tissue Removed: Slough devitalized tissue Severity: Fat Layer Exposed Amount of bleeding with debridement: Mild Bleeding Controlled with: Pressure Patient tolerated procedure: Patient tolerated procedure well Post-Debridement Measurements and Additional Note: Post-Debridement Measurements/Treatment - Nurse 1 - General Ulcer Assessment Start: 08/30/21 13:07 Freq: Status: Active Protocol: [email or web address] Activity Type Activity Date Activity User E-Sign Co-Sign Detail Recorded Client Recorded Date Recorded By Document 08/30/21 13:07 [id number] 08/30/21 13:13 DL 08/30/21 13:07 - Today's Visit Information Type of service Follow-up Visit (Physician/[employer]ER ) Arrival Mode Ambulatory Transfer Assistance None Patient Identification Verified (Name & Yes ) Height and Weight Body Mass Index (BMI) 21.7 BMI Classification Normal Vital Signs Temperature (97.8 F-99.1 F) 98.5 F Temperature Source Temporal Pulse Rate (60-100) 58 L Pulse Location Monitor Respiratory Rate (12-18) 18 Respiratory rate source Observation Blood Pressure (90/60-120/80) 148/64 H Blood Pressure Mean (mm Hg) 92 Source Monitor History Since Last Visit- (Skip if this is Patient's initial visit) Have you changed medications since your No last visit? Any new allergies or adverse reactions No Had a fall/change in ADL's that may No increase risk of falls Signs or symptoms of abuse and/or No neglect since last visit Have you been in the hospital since your No last visit? Has dressing in place as prescribed Yes Has compression in place as prescribed N/A Has offloadiing in place as prescribed N/A Experienced any changes in pain level or No management Pain Scale: 0-10 Numeric Is Patient Pain Free? Yes WC - Nurse 1 - General Ulcer Measurement Start: 08/30/21 13:07 Freq: Status: Active Protocol: Activity Type Activity Date Activity User E-Sign Co-Sign Detail Recorded Client Recorded Date Recorded By Document 08/30/21 13:07 DL [id number] 08/30/21 13:13 DL 08/30/21 13:07 Wound Center Nurse 1 #1 L medial ankle -Combined with other wound No -Current Size (cm) - Length 1.8 -Current Size (cm) - Width 1.0 -Current Size (cm) - Depth 0.3 -Total Square Cm 1.80 -Photo Taken No -Epithelialization None Present -Tunneling No -Undermining/Tunneling No -Circular Undermining No -Exudate Amt Small -Exudate Type Serosanguineous -Wound Margin Flat & Intact -Granulation Amt Small (1-33%) -Granulation Quality Pale -Slough/Fibrin Yes -Necrosis Amt Large (67-100%) -Necrotic Tissue Type Adherent Slough -Structure Exposed N/A -Texture (Prema-wound Skin Appearance) Assessed -Moisture (Prema-wound Skin Appearance) Assessed,Dry/ Scaly -Color (Prema-wound Skin Appearance) Assessed, Hemosiderin Staining -Temperature (Prema-wound Skin No Abnormality Appearance) (Pt Warm) -Tenderness on Palpation (Prema-wound No Skin Appearance) -Ulcer Cleansing Rinsed/ Irrigated with Saline -Foul Odor after Cleansing No -Anesthetic Used 4% Lidocaine Solution Lower Limb Edema Present Yes Right Calf (cm) 26 Right Ankle (cm) 21 WC - Nurse 2 - General Ulcer CM Notes Start: 08/30/21 13:07 Freq: Status: Active Protocol: Activity Type Activity Date Activity User E-Sign Co-Sign Detail Recorded Client Recorded Date Recorded By Document 08/30/21 13:26 [id number] 08/30/21 13:30 MW 08/30/21 13:26 Wound Center Nurse 2 #1 L medial ankle -Time 13:26 -Correct Patient Yes -Correct Side, Site, Position Yes -Correct Procedure Yes -Procedure Performed Yes -Type of Procedure Debridement -Clinical Debridement Subcutaneous -Tissue Removed Subcutaneous -Post Debridement (cm) - Length 1.6 -Post Debridement (cm) - Width 1.7 -Post Debridement (cm) - Depth 0.2 -Total Square (Post) (cm) 2.72 -Area of Debridement (cm) - Length 1.6 -Area of Debridement (cm) - Width 1.7 -Total Square (Area) (cm) 2.72 -Tunneling No -Undermining/Tunneling No -Circular Undermining No -Wound/Ulcer Outcome Not Healed -Ulcer Cleansing Rinsed/ Irrigated with Saline -Foul Odor after Cleansing No -Bioengineered Tissue No -Bleeding Controlled with Pressure -Offloading No -Treatment Response Procedure Tolerated Well -Debridement - Subq, 1st 20sq cm Yes Pain Scale: 0-10 Numeric Is Patient Pain Free? Yes - Nurse 3 - General Ulcer D/C NN Start: 08/30/21 13:07 Freq: Status: Active Protocol: Activity Type Activity Date Activity User E-Sign Co-Sign Detail Recorded Client Recorded Date Recorded By Document 08/30/21 13:43 [id number] 08/30/21 13:43 08/30/21 13:43 Wound Care Nurse 3 #1 L medial ankle -Ulcer Cleansing Rinsed/ Irrigated with Saline -Foul Odor after Cleansing No -Primary Dressing Applied Promogran -Primary Dressing Covered/Secured with Dry Gauze & Roll Gauze, Secured with Tape -Promogran 2 Left -Tubular Bandage Single Layer -Size of Tubigrip Used Size D -Size D ($) 0 Pain Scale: 0-10 Numeric Is Patient Pain Free? Yes - Visit Discharge Discharge Condition Stable Ambulatory Status Ambulatory Transportation Private Auto Medication Reconcilliation completed & Yes provided to patient/care provider Clinical Summary of Care Provided Yes Assessment/Plan Assessment/Plan (1) Venous stasis ulcer of 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: CODE(S): I83.023 - Varicose veins of left lower extremity with ulcer of ankle; L97.322 - Non-pressure chronic ulcer of 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 QUALIFIERS: Varicose vein presence: with varicose veins Qualified Code(s): I83.023 - Varicose veins of left lower extremity with ulcer of ankle; L97.322 - Non-pressure chronic ulcer of 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 (2) Tobacco use: CODE(S): Z72.0 - Tobacco use (3) Stage III chronic kidney disease: CODE(S): N18.30 - Chronic kidney disease, stage 3 unspecified QUALIFIERS: Chronic kidney disease stage 3 subtype: stage 3b (GFR 30-44) Qualified Code(s): N18.32 - Chronic kidney disease, stage 3b (4) History of fracture of left ankle: CODE(S): Z87.81 - Personal history of (healed) traumatic fracture PLAN: Courtesy visit for Мария AUSTIN-given the duration of the wound and failure of the wound to respond to standard wound care, we will apply for advanced skin substitutes (EpiFix). At home wound-care instructions: Change promogran dressing once daily or more frequently as needed due to contamination. Wash wounds daily with antibacterial soap and water, rinse and dry thoroughly before each dressing change. Cover with gauze. (Do not use Telfa or outer dressing.) Compression: Wear double Tubigrip's daily. These may be removed at bedtime, but should be reapplied in the morning before getting out of bed. Off-loading: The patient was instructed to avoid pressure and friction on the affected areas. Reposition every 2 hours at minimum. Avoid prolonged standing and/or dangling of legs. When seated, feet should be elevated at chest level. Frequent ambulation is encouraged. Diet: Patient encouraged to increase protein intake while taking caution to avoid high carbohydrate and/or sugar intake. Smoking: The risks of smoking and benefits of smoking cessation have been discussed with the patient today. The patient has been encouraged to quit smoking. If smoking cessation aids are desired, the patient should contact their primary care provider to discuss appropriate options. Labs/cultures/imaging: Cultures (07/27/2021) positive for very rare Staphylococcus pseudointermedius (possible skin contamination); anaerobic cocci also detected. Patient was started on cephalexin 500 mg every 12 hours x7 days which he completed. Lab work from April 2021 reviewed, as above. Vascular studies not yet received from the [facility]. Follow-up: Return to clinic in 2 weeks for re-evaluation with Delano Chinchilla NP. Return to clinic on 08/31/2021 for reevaluation with (NORMAN Mendez). Return sooner or report to the emergency room should symptoms worsen, or new symptoms arise. Note: [email or web address] speech recognition dynamic balancer set up worker software was used to create portions of this document. Sound-alike and misspelled words, as well as other dynamic balancer set up worker errors may be contained in the documentation.
[2021-09-07 09:00] VITALS: BP 150/100; PULSE 119; RESP 18; TEMP 36.2; BMI 21.7
--- NOTE | 2021-09-07 13:50 | PCM.WC.PN ---
History of Present Illness Date of Service: 09/07/21 Chief Complaint: left medial ankle ulcer History of Wound: Viral is a pleasant 81-year-old male who presents to the wound healing center for an initial evaluation of his left medial ankle ulcer. He has a past medical history significant for liver transplant (in 1998), thrombocytopenia, stage III CKD, tobacco abuse, and left ankle fracture (in 1959). He states that following his ankle fracture in 1959, a screw was placed in his left ankle. The left ankle screw subsequently became infected and was removed. Since that time, he has had frequent occurrence of left ankle ulcers. These ulcers have occurred at various sites within the medial left ankle region. He has previously been seen by [facility] wound care for his left ankle ulcers. He states that this particular left medial ankle ulcer onset approximately 2 months ago. He has been using Anasept ointment daily to his medial left ankle ulcer (which he had previously received from [facility] wound center). He is washing his ankle ulcer with antibacterial soap and water. He does not use compression. The patient denies fever, chills, general malaise, or poor appetite. The patient has not had increased redness, swelling, or purulent/malodorous drainage from affected area. He has not had any recent wound cultures. He had lab work in April 2021, which was reviewed today, and was significant for chronic kidney disease (creatinine 1.70, estimated GFR 39), and low platelets (130). He reports that at some point he did undergo vascular studies of his lower extremities at the [facility], but does not recall when these were completed. Progress of Wound: Patient was evaluated in my absence by Delano Chinchilla NP on 08/21/2021 and 08/31/2021. Dressings were changed to Promogran. Vascular studies were ordered. These have not yet been completed. No significant change in wound size or appearance since I last evaluated. The patient has been compliant with the use of Promogran. The patient denies fever, chills, general malaise, or poor appetite. The patient has not had increased redness, swelling, or purulent/malodorous drainage from affected area. The patient has been approved for EpiFix. Objective Data Objective Data Vital Signs: Vital Signs Temp Pulse Resp BP 97.2 F L 119 H 18 150/100 H 09/07/21 09:00 09/07/21 09:00 09/07/21 09:00 09/07/21 09:00 Weight: 135 lb Body Mass Index (BMI) 21.7 Charges/Coding Procedures Integumentary 150xxx-152xx: 44026 Skin sub graft trnk/arm/leg Physical Exam Const alert, no apparent distress and healthy appearing General Appearance: cooperative, comfortable and well kempt HEENT Head and Scalp: normocephalic and atraumatic Eyes EOMs intact bilaterally Neck supple and no JVD Resp normal respiratory effort, normal air movement and no use of accessory muscles GI Negative for normal to inspection, nondistended, normoactive bowel sounds Extremity normal capillary refill, no joint enlargement and no calf tenderness General Extremity: edema left lower extremity trace Peripheral Pulses: Yes dorsalis pedis pulses present left 2+ Skin General Skin Exam: venous stasis Wounds: wounds noted No malodorous Wound Narrative: Medial left ankle ulcer with subcutaneous layer exposed. Small amount of devitalized tissue present. No tunneling, undermining, or probing to bone. No periulcer erythema or warmth. No significant tenderness to palpation. No purulent/malodorous drainage. Neuro moves all extremities and no focal motor deficits Psych mental status grossly normal, cooperative and affect normal Debridement Note Debridement Note Wound debrided: Medial left ankle Laterality: Left Type of Debridement: Excisional debridement Anesthesia Used: 5% Lidocaine Gel Depth: in the subcutaneous layer Percentage of wound debrided: 100 Instrument Used: 3mm curette Tissue Removed: Slough and vitalized tissue Severity: Fat Layer Exposed Amount of bleeding with debridement: Mild Bleeding Controlled with: Pressure Patient tolerated procedure: Patient tolerated procedure well Post-Debridement Measurements and Additional Note: Post-Debridement Measurements/Treatment - Nurse 1 - General Ulcer Assessment Start: 08/30/21 13:07 Freq: Status: Active Protocol: BYRON Activity Type Activity Date Activity User E-Sign Co-Sign Detail Recorded Client Recorded Date Recorded By Document 08/30/21 13:07 DL [id number] 08/30/21 13:13 DL Document 09/07/21 09:00 ML [id number] 09/07/21 09:10 ML 08/30/21 09/07/21 13:07 09:00 - Today's Visit Information Type of service Follow-up Visit Follow-up Visit (Physician/STRADDLE BUG (Physician/STRADDLE BUG ) ) Arrival Mode Ambulatory Ambulatory Transfer Assistance None Patient Identification Verified (Name & Yes Yes ) Patient Requires Transmission-Based No Precautions Safety Precautions NA Height and Weight Body Mass Index (BMI) 21.7 21.7 BMI Classification Normal Normal Vital Signs Temperature (97.8 F-99.1 F) 98.5 F 97.2 F L Temperature Source Temporal Temporal Pulse Rate (60-100) 58 L 119 H Pulse Location Monitor Respiratory Rate (12-18) 18 18 Respiratory rate source Observation Blood Pressure (90/60-120/80) 148/64 H 150/100 H Blood Pressure Mean (mm Hg) 92 116 Source Monitor Monitor Position Sitting Blood Pressure Location Left Arm History Since Last Visit- (Skip if this is Patient's initial visit) Have you changed medications since your No No last visit? Any new allergies or adverse reactions No No Had a fall/change in ADL's that may No No increase risk of falls Signs or symptoms of abuse and/or No No neglect since last visit Have you been in the hospital since your No No last visit? Has dressing in place as prescribed Yes Yes Has compression in place as prescribed N/A Yes Has offloadiing in place as prescribed N/A N/A Experienced any changes in pain level or No No management Left Footwear Regular Shoe Right Footwear Regular Shoe Pain Scale: 0-10 Numeric Is Patient Pain Free? Yes Yes WC - Nurse 1 - General Ulcer Measurement Start: 08/30/21 13:07 Freq: Status: Active Protocol: Activity Type Activity Date Activity User E-Sign Co-Sign Detail Recorded Client Recorded Date Recorded By Document 08/30/21 13:07 DL [id number] 08/30/21 13:13 DL Document 09/07/21 09:00 ML [id number] 09/07/21 09:10 ML 08/30/21 09/07/21 13:07 09:00 Wound Center Nurse 1 #1 L medial ankle -Combined with other wound No -Current Size (cm) - Length 1.8 1 -Current Size (cm) - Width 1.0 2 -Current Size (cm) - Depth 0.3 0.2 -Total Square Cm 1.80 2 -Photo Taken No -Epithelialization None Present -Tunneling No -Undermining/Tunneling No -Circular Undermining No -Exudate Amt Small Medium -Exudate Type Serosanguineous Serosanguineous -Wound Margin Flat & Intact Distinct, Outline Attached -Granulation Amt Small (1-33%) Small (1-33%) -Granulation Quality Pale -Slough/Fibrin Yes Yes -Necrosis Amt Large (67-100%) None Present (0 %) -Necrotic Tissue Type Adherent Slough -Structure Exposed N/A -Texture (Prema-wound Skin Appearance) Assessed Assessed -Moisture (Prema-wound Skin Appearance) Assessed,Dry/ Assessed Scaly -Color (Prema-wound Skin Appearance) Assessed, Assessed Hemosiderin Staining -Temperature (Prema-wound Skin No Abnormality No Abnormality Appearance) (Pt Warm) (Pt Warm) -Tenderness on Palpation (Prema-wound No Skin Appearance) -Ulcer Cleansing Rinsed/ Rinsed/ Irrigated with Irrigated with Saline Saline -Foul Odor after Cleansing No No -Anesthetic Used 4% Lidocaine 5% Lidocaine Solution Gel Lower Limb Edema Present Yes Right Calf (cm) 26 Right Ankle (cm) 21 Left Calf (cm) 26 Left Ankle (cm) 22 WC - Nurse 2 - General Ulcer CM Notes Start: 08/30/21 13:07 Freq: Status: Active Protocol: Activity Type Activity Date Activity User E-Sign Co-Sign Detail Recorded Client Recorded Date Recorded By Document 08/30/21 13:26 MW [id number] 08/30/21 13:30 MW Document 09/07/21 13:21 PL [id number] 09/07/21 13:23 PL 08/30/21 09/07/21 13:26 13:21 Wound Center Nurse 2 #1 L medial ankle -Time 13:26 09:28 -Correct Patient Yes Yes -Correct Side, Site, Position Yes Yes -Correct Procedure Yes Yes -Procedure Performed Yes Yes -Type of Procedure Debridement Debridement -Clinical Debridement Subcutaneous Subcutaneous -Tissue Removed Subcutaneous Subcutaneous -Post Debridement (cm) - Length 1.6 1.2 -Post Debridement (cm) - Width 1.7 2.1 -Post Debridement (cm) - Depth 0.2 0.2 -Total Square (Post) (cm) 2.72 2.52 -Area of Debridement (cm) - Length 1.6 1.2 -Area of Debridement (cm) - Width 1.7 2.1 -Total Square (Area) (cm) 2.72 2.52 -Tunneling No No -Undermining/Tunneling No No -Circular Undermining No No -Wound/Ulcer Outcome Not Healed Not Healed -Ulcer Cleansing Rinsed/ Rinsed/ Irrigated with Irrigated with Saline Saline -Foul Odor after Cleansing No No -Bioengineered Tissue No Yes -Type of Bioengineered Tissue Epifix -Expiration Date 05/25/26 -Product Lot Number [id number] -Percent Used 100 -Bleeding Controlled with Pressure Pressure -Offloading No -Treatment Response Procedure Procedure Tolerated Well Tolerated Well -Debridement - Subq, 1st 20sq cm Yes No -Apply Skin Sub - 1st 25 sq cm - Legs 1 -Epifix (per sq cm) 4 Pain Scale: 0-10 Numeric Is Patient Pain Free? Yes Yes - Nurse 3 - General Ulcer D/C NN Start: 08/30/21 13:07 Freq: Status: Active Protocol: Activity Type Activity Date Activity User E-Sign Co-Sign Detail Recorded Client Recorded Date Recorded By Document 08/30/21 13:43 [id number] 08/30/21 13:43 Document 09/07/21 10:00 OR [id number] 09/07/21 10:01 OR 08/30/21 09/07/21 13:43 10:00 Wound Care Nurse 3 #1 L medial ankle -Ulcer Cleansing Rinsed/ Rinsed/ Irrigated with Irrigated with Saline Saline -Foul Odor after Cleansing No No -Negative Pressure Wound Therapy N/A -Primary Dressing Applied Promogran -Primary Dressing Covered/Secured with Dry Gauze & Dry Gauze Roll Gauze, Secured with Tape -Promogran 2 Left -Lotion applied to leg before No compression wrap -Compression Wrap Unna Boot ($) ( single) -Tubular Bandage Single Layer -Size of Tubigrip Used Size D -Size D ($) 0 Pain Scale: 0-10 Numeric Is Patient Pain Free? Yes Yes - Visit Discharge Discharge Condition Stable Stable Ambulatory Status Ambulatory Ambulatory Transportation Private Auto Private Auto Medication Reconcilliation completed & Yes No provided to patient/care provider Clinical Summary of Care Provided Yes Yes Assessment/Plan Assessment/Plan (1) Venous stasis ulcer of 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: CODE(S): I83.023 - Varicose veins of left lower extremity with ulcer of ankle; L97.322 - Non-pressure chronic ulcer of 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 QUALIFIERS: Varicose vein presence: with varicose veins Qualified Code(s): I83.023 - Varicose veins of left lower extremity with ulcer of ankle; L97.322 - Non-pressure chronic ulcer of 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 (2) Tobacco use: CODE(S): Z72.0 - Tobacco use (3) Stage III chronic kidney disease: CODE(S): N18.30 - Chronic kidney disease, stage 3 unspecified QUALIFIERS: Chronic kidney disease stage 3 subtype: stage 3b (GFR 30-44) Qualified Code(s): N18.32 - Chronic kidney disease, stage 3b (4) History of fracture of left ankle: CODE(S): Z87.81 - Personal history of (healed) traumatic fracture PLAN: Debridement performed today in clinic as annotated above. Given the duration of the wound and failure of the wound to respond to standard wound care, we applied for advanced skin substitutes (EpiFix) and were approved. EpiFix #1 applied today; 100% of the product was used. A small amount of hydrogel was applied atop EpiFix, and this was secured with Adaptic touch and Steri-Strips. Gauze covering applied. Unna boot applied to the left lower extremity. At home wound-care instructions: Keep Unna boot clean and dry. If at anytime Unna boot becomes uncomfortably tight, elevate the lower extremity. If elevation does not resolve discomfort, please contact the wound center and/or remove the Unna boot. Cover Unna boot with a cast cover or plastic bag while showering. Use caution when showering to avoid falls. Compression: Unna boot Off-loading: Avoid prolonged standing and/or dangling of legs. When seated, feet should be elevated at chest level. Frequent ambulation is encouraged. Diet: Patient encouraged to increase protein intake while taking caution to avoid high carbohydrate and/or sugar intake. Smoking: The risks of smoking and benefits of smoking cessation have been discussed with the patient today. The patient has been encouraged to quit smoking. If smoking cessation aids are desired, the patient should contact their primary care provider to discuss appropriate options. Labs/cultures/imaging: Vascular studies were ordered but have not yet been completed. Follow-up: Return to clinic on Friday for nurse visit and changing of the Unna boot. Return to clinic in 1 week for re-evaluation. Return sooner or report to the emergency room should symptoms worsen, or new symptoms arise. Note: [employer] speech recognition order planner software was used to create portions of this document. Sound-alike and misspelled words, as well as other order planner errors may be contained in the documentation.
[2021-09-11 13:53] VITALS: BP 125/54; PULSE 57; RESP 20; TEMP 36.4; BMI 21.7
[2021-09-14 09:33] VITALS: BP 137/61; PULSE 65; RESP 18; TEMP 36.1; BMI 21.7
--- NOTE | 2021-09-14 10:36 | PCM.WC.PN ---
History of Present Illness Date of Service: 09/14/21 Chief Complaint: left medial ankle ulcer History of Wound: Viral is a pleasant 81-year-old male who presents to the wound healing center for an initial evaluation of his left medial ankle ulcer. He has a past medical history significant for liver transplant (in 1998), thrombocytopenia, stage III CKD, tobacco abuse, and left ankle fracture (in 1959). He states that following his ankle fracture in 1959, a screw was placed in his left ankle. The left ankle screw subsequently became infected and was removed. Since that time, he has had frequent occurrence of left ankle ulcers. These ulcers have occurred at various sites within the medial left ankle region. He has previously been seen by [facility] wound care for his left ankle ulcers. He states that this particular left medial ankle ulcer onset approximately 2 months ago. He has been using Anasept ointment daily to his medial left ankle ulcer (which he had previously received from [facility] wound center). He is washing his ankle ulcer with antibacterial soap and water. He does not use compression. The patient denies fever, chills, general malaise, or poor appetite. The patient has not had increased redness, swelling, or purulent/malodorous drainage from affected area. He has not had any recent wound cultures. He had lab work in April 2021, which was reviewed today, and was significant for chronic kidney disease (creatinine 1.70, estimated GFR 39), and low platelets (130). He reports that at some point he did undergo vascular studies of his lower extremities at the [facility], but does not recall when these were completed. Progress of Wound: Vascular studies were ordered. These have not yet been scheduled, due to reported difficulty with contacting scheduling department. Epi fix was initiated last week (09/07/2020). An Unna boot was applied to the left lower extremity. The patient was compliant with keeping Unna boot clean and dry. He denies any complications. His wound is slightly improved in size and appearance today. The patient denies fever, chills, general malaise, or poor appetite. The patient has not had increased redness, swelling, or purulent/malodorous drainage from affected area. Objective Data Objective Data Vital Signs: Vital Signs Temp Pulse Resp BP 97 F L 65 18 137/61 H 09/14/21 09:33 09/14/21 09:33 09/14/21 09:33 09/14/21 09:33 Oxygen Delivery Method Room Air Weight: 135 lb Body Mass Index (BMI) 21.7 Charges/Coding Procedures Integumentary 150xxx-152xx: [id number] Skin sub graft trnk/arm/leg Physical Exam Const alert, no apparent distress and healthy appearing General Appearance: cooperative, comfortable and well kempt HEENT Head and Scalp: normocephalic and atraumatic Eyes EOMs intact bilaterally Neck supple and no JVD Resp normal respiratory effort, normal air movement and no use of accessory muscles Extremity normal capillary refill, no joint enlargement and no calf tenderness General Extremity: edema left lower extremity trace Peripheral Pulses: Yes dorsalis pedis pulses present left 2+ Skin General Skin Exam: venous stasis Wounds: wounds noted No malodorous Wound Narrative: Medial left ankle ulcer with subcutaneous layer exposed. Small to moderate amount of devitalized tissue present. No tunneling, undermining, or probing to bone. No periulcer erythema or warmth. No significant tenderness to palpation. No purulent/malodorous drainage. Neuro moves all extremities and no focal motor deficits Psych mental status grossly normal, cooperative and affect normal Debridement Note Debridement Note Wound debrided: left medial ankle ulcer Type of Debridement: Excisional debridement Anesthesia Used: 4% Lidocaine Solution Depth: in the subcutaneous layer Percentage of wound debrided: 100 Instrument Used: 5mm curette Tissue Removed: Slough and devitalized tissue Severity: Fat Layer Exposed Amount of bleeding with debridement: Mild Bleeding Controlled with: Pressure Patient tolerated procedure: Patient tolerated procedure well Post-Debridement Measurements and Additional Note: Post-Debridement Measurements/Treatment WC - Nurse 1 - General Ulcer Assessment Start: 08/30/21 13:07 Freq: Status: Active Protocol: BYRON Activity Type Activity Date Activity User E-Sign Co-Sign Detail Recorded Client Recorded Date Recorded By Document 08/30/21 13:07 DL [id number] 08/30/21 13:13 DL Document 09/07/21 09:00 ML [id number] 09/07/21 09:10 ML Document 09/11/21 13:53 DL [id number] 09/11/21 14:02 DL Document 09/14/21 09:33 SC [id number] 09/14/21 09:45 MT 08/30/21 09/07/21 09/11/21 13:07 09:00 13:53 WC - Today's Visit Information Type of service Follow-up Visit Follow-up Visit Nurse-only (Physician/CONCRETE FINISHER APPRENTICE (Physician/CONCRETE FINISHER APPRENTICE Visit ) ) Arrival Mode Ambulatory Ambulatory Ambulatory Transfer Assistance None None Patient Identification Verified (Name & Yes Yes Yes ) Patient Requires Transmission-Based No Precautions Safety Precautions NA Height and Weight Body Mass Index (BMI) 21.7 21.7 21.7 BMI Classification Normal Normal Normal Vital Signs Temperature (97.8 F-99.1 F) 98.5 F 97.2 F L 97.6 F L Temperature Source Temporal Temporal Temporal Pulse Rate (60-100) 58 L 119 H 57 L Pulse Location Monitor Respiratory Rate (12-18) 18 18 20 H Respiratory rate source Observation Observation Oxygen Delivery Method Blood Pressure (90/60-120/80) 148/64 H 150/100 H 125/54 H Blood Pressure Mean (mm Hg) 92 116 77 Source Monitor Monitor Monitor Position Sitting Blood Pressure Location Left Arm History Since Last Visit- (Skip if this is Patient's initial visit) Have you changed medications since your No No No last visit? Any new allergies or adverse reactions No No No Had a fall/change in ADL's that may No No No increase risk of falls Signs or symptoms of abuse and/or No No No neglect since last visit Have you been in the hospital since your No No No last visit? Has dressing in place as prescribed Yes Yes Yes Has compression in place as prescribed N/A Yes Yes Has offloadiing in place as prescribed N/A N/A N/A Experienced any changes in pain level or No No No management Left Footwear Regular Shoe Regular Shoe Right Footwear Regular Shoe Regular Shoe Pain Scale: 0-10 Numeric Is Patient Pain Free? Yes Yes Yes 09/14/21 09:33 WC - Today's Visit Information Type of service Follow-up Visit (Physician/CONCRETE FINISHER APPRENTICE ) Arrival Mode Ambulatory Transfer Assistance Patient Identification Verified (Name & ) Patient Requires Transmission-Based Precautions Safety Precautions Height and Weight Body Mass Index (BMI) 21.7 BMI Classification Normal Vital Signs Temperature (97.8 F-99.1 F) 97 F L Temperature Source Temporal Pulse Rate (60-100) 65 Pulse Location Monitor Respiratory Rate (12-18) 18 Respiratory rate source Observation Oxygen Delivery Method Room Air Blood Pressure (90/60-120/80) 137/61 H Blood Pressure Mean (mm Hg) 86 Source Monitor Position Sitting Blood Pressure Location Left Arm History Since Last Visit- (Skip if this is Patient's initial visit) Have you changed medications since your last visit? Any new allergies or adverse reactions Had a fall/change in ADL's that may increase risk of falls Signs or symptoms of abuse and/or neglect since last visit Have you been in the hospital since your No last visit? Has dressing in place as prescribed Yes Has compression in place as prescribed Yes Has offloadiing in place as prescribed N/A Experienced any changes in pain level or No management Left Footwear Regular Shoe Right Footwear Regular Shoe Pain Scale: 0-10 Numeric Is Patient Pain Free? Yes WC - Nurse 1 - General Ulcer Measurement Start: 08/30/21 13:07 Freq: Status: Active Protocol: Activity Type Activity Date Activity User E-Sign Co-Sign Detail Recorded Client Recorded Date Recorded By Document 08/30/21 13:07 DL [id number] 08/30/21 13:13 DL Document 09/07/21 09:00 ML [id number] 09/07/21 09:10 ML Document 09/11/21 13:53 DL [id number] 09/11/21 14:02 DL Document 09/14/21 09:33 SC [id number] 09/14/21 09:45 MT 08/30/21 09/07/21 09/11/21 13:07 09:00 13:53 Wound Center Nurse 1 #1 L medial ankle -Combined with other wound No No -Current Size (cm) - Length 1.8 1 -Current Size (cm) - Width 1.0 2 -Current Size (cm) - Depth 0.3 0.2 -Total Square Cm 1.80 2 -Photo Taken No No -Epithelialization None Present -Tunneling No -Undermining/Tunneling No -Circular Undermining No -Exudate Amt Small Medium -Exudate Type Serosanguineous Serosanguineous -Wound Margin Flat & Intact Distinct, Outline Attached -Granulation Amt Small (1-33%) Small (1-33%) -Granulation Quality Pale -Slough/Fibrin Yes Yes -Necrosis Amt Large (67-100%) None Present (0 %) -Necrotic Tissue Type Adherent Slough -Structure Exposed N/A -Texture (Prema-wound Skin Appearance) Assessed Assessed No Abnormality, Assessed -Moisture (Prema-wound Skin Appearance) Assessed,Dry/ Assessed Assessed,Dry/ Scaly Scaly -Color (Prema-wound Skin Appearance) Assessed, Assessed Assessed, Hemosiderin Hemosiderin Staining Staining -Temperature (Prema-wound Skin No Abnormality No Abnormality No Abnormality Appearance) (Pt Warm) (Pt Warm) (Pt Warm) -Tenderness on Palpation (Prema-wound No Skin Appearance) -Ulcer Cleansing Rinsed/ Rinsed/ Soap and Water Irrigated with Irrigated with Saline Saline -Foul Odor after Cleansing No No No -Anesthetic Used 4% Lidocaine 5% Lidocaine Solution Gel Lower Limb Edema Present Yes Yes Right Calf (cm) 26 Right Ankle (cm) 21 Left Calf (cm) 26 25.4 Left Ankle (cm) 22 21.5 09/14/21 09:33 Wound Center Nurse 1 #1 L medial ankle -Combined with other wound -Current Size (cm) - Length 1.3 -Current Size (cm) - Width 2.2 -Current Size (cm) - Depth 0.2 -Total Square Cm 2.86 -Photo Taken -Epithelialization -Tunneling -Undermining/Tunneling -Circular Undermining -Exudate Amt Medium -Exudate Type Serosanguineous -Wound Margin Thickened & Rolled Under -Granulation Amt Medium (34-66%) -Granulation Quality Pale,[place] -Slough/Fibrin -Necrosis Amt Medium (34-66%) -Necrotic Tissue Type Adherent Slough -Structure Exposed -Texture (Prema-wound Skin Appearance) Assessed -Moisture (Prema-wound Skin Appearance) Assessed -Color (Prema-wound Skin Appearance) Assessed -Temperature (Prema-wound Skin No Abnormality Appearance) (Pt Warm) -Tenderness on Palpation (Prema-wound No Skin Appearance) -Ulcer Cleansing Rinsed/ Irrigated with Saline -Foul Odor after Cleansing No -Anesthetic Used 4% Lidocaine Solution Lower Limb Edema Present Yes Right Calf (cm) Right Ankle (cm) Left Calf (cm) 25.4 Left Ankle (cm) 21.5 WC - Nurse 2 - General Ulcer CM Notes Start: 08/30/21 13:07 Freq: Status: Active Protocol: Activity Type Activity Date Activity User E-Sign Co-Sign Detail Recorded Client Recorded Date Recorded By Document 08/30/21 13:26 MW [id number] 08/30/21 13:30 MW Document 09/07/21 13:21 PL [id number] 09/07/21 13:23 PL Document 09/14/21 10:33 PL [id number] 09/14/21 10:35 PL 08/30/21 09/07/21 09/14/21 13:26 13:21 10:33 Wound Center Nurse 2 #1 L medial ankle -Time 13: 09:28 10:06 -Correct Patient Yes Yes Yes -Correct Side, Site, Position Yes Yes Yes -Correct Procedure Yes Yes Yes -Procedure Performed Yes Yes Yes -Type of Procedure Debridement Debridement Debridement -Clinical Debridement Subcutaneous Subcutaneous Subcutaneous -Tissue Removed Subcutaneous Subcutaneous Subcutaneous -Post Debridement (cm) - Length 1.6 1.2 1.1 -Post Debridement (cm) - Width 1.7 2.1 2.0 -Post Debridement (cm) - Depth 0.2 0.2 0.2 -Total Square (Post) (cm) 2.72 2.52 2.20 -Area of Debridement (cm) - Length 1.6 1.2 1.1 -Area of Debridement (cm) - Width 1.7 2.1 2.0 -Total Square (Area) (cm) 2.72 2.52 2.20 -Tunneling No No No -Undermining/Tunneling No No No -Circular Undermining No No No -Wound/Ulcer Outcome Not Healed Not Healed Not Healed -Ulcer Cleansing Rinsed/ Rinsed/ Rinsed/ Irrigated with Irrigated with Irrigated with Saline Saline Saline -Foul Odor after Cleansing No No No -Bioengineered Tissue No Yes Yes -Type of Bioengineered Tissue Epifix Epifix -Expiration Date 05/25/26 04/25/26 -Product Lot Number [id number] -Percent Used 100 100 -Bleeding Controlled with Pressure Pressure Pressure -Offloading No -Treatment Response Procedure Procedure Procedure Tolerated Well Tolerated Well Tolerated Well -Debridement - Subq, 1st 20sq cm Yes No No -Apply Skin Sub - 1st 25 sq cm - Legs 1 1 -Epifix (per sq cm) 4 4 Pain Scale: 0-10 Numeric Is Patient Pain Free? Yes Yes Yes - Nurse 3 - General Ulcer D/C NN Start: 08/30/21 13:07 Freq: Status: Active Protocol: Activity Type Activity Date Activity User E-Sign Co-Sign Detail Recorded Client Recorded Date Recorded By Document 08/30/21 13:43 JF [id number] 08/30/21 13:43 JF Document 09/07/21 10:00 AK [id number] 09/07/21 10:01 AK Document 09/11/21 13:53 DL [id number] 09/11/21 14:02 DL 08/30/21 09/07/21 09/11/21 13:43 10:00 13:53 Wound Care Nurse 3 #1 L medial ankle -Ulcer Cleansing Rinsed/ Rinsed/ Soap and Water Irrigated with Irrigated with Saline Saline -Foul Odor after Cleansing No No No -Negative Pressure Wound Therapy N/A N/A -Primary Dressing Applied Promogran -Primary Dressing Covered/Secured with Dry Gauze & Dry Gauze Roll Gauze, Secured with Tape -Other Covering Epifix,wound veil, steri strips intact -Promogran 2 Left -Lotion applied to leg before No No compression wrap -Multi-Layered Wrap Application Unna Boot - Left ($) -Compression Wrap Unna Boot ($) ( single) -Tubular Bandage Single Layer -Size of Tubigrip Used Size D -Size D ($) 0 Treatment Response Procedure Tolerated Well Vital Signs Temperature (97.8 F-99.1 F) 97.6 F L Temperature Source Temporal Pulse Rate (60-100) 57 L Respiratory Rate (12-18) 20 H Respiratory rate source Observation Blood Pressure (90/60-120/80) 125/54 H Blood Pressure Mean (mm Hg) 77 Source Monitor Pain Scale: 0-10 Numeric Is Patient Pain Free? Yes Yes Yes - Visit Discharge Discharge Condition Stable Stable Stable Ambulatory Status Ambulatory Ambulatory Ambulatory Transportation Private Auto Private Auto Private Auto Accompanied by self Medication Reconcilliation completed & Yes No No provided to patient/care provider Clinical Summary of Care Provided Yes Yes Yes Assessment/Plan Assessment/Plan (1) Venous stasis ulcer of 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: CODE(S): I83.023 - Varicose veins of left lower extremity with ulcer of ankle; L97.322 - Non-pressure chronic ulcer of 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 QUALIFIERS: Varicose vein presence: with varicose veins Qualified Code(s): I83.023 - Varicose veins of left lower extremity with ulcer of ankle; L97.322 - Non-pressure chronic ulcer of 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 (2) Tobacco use: CODE(S): Z72.0 - Tobacco use (3) Stage III chronic kidney disease: CODE(S): N18.30 - Chronic kidney disease, stage 3 unspecified QUALIFIERS: Chronic kidney disease stage 3 subtype: stage 3b (GFR 30-44) Qualified Code(s): N18.32 - Chronic kidney disease, stage 3b (4) History of fracture of left ankle: CODE(S): Z87.81 - Personal history of (healed) traumatic fracture PLAN: Debridement performed today in clinic as annotated above. Given the duration of the wound and failure of the wound to respond to standard wound care, we applied for advanced skin substitutes (EpiFix) and were approved. EpiFix # applied today (2 cm x 2 cm); 100% of the product was used. A small amount of hydrogel was applied atop EpiFix, and this was secured with Adaptic touch and Steri-Strips. Gauze covering applied. Unna boot applied to the left lower extremity. At home wound-care instructions: Keep Unna boot clean and dry. If at anytime Unna boot becomes uncomfortably tight, elevate the lower extremity. If elevation does not resolve discomfort, please contact the wound center and/or remove the Unna boot. Cover Unna boot with a cast cover or plastic bag while showering. Use caution when showering to avoid falls. Compression: Unna boot Off-loading: Avoid prolonged standing and/or dangling of legs. When seated, feet should be elevated at chest level. Frequent ambulation is encouraged. Diet: Patient encouraged to increase protein intake while taking caution to avoid high carbohydrate and/or sugar intake. Smoking: The risks of smoking and benefits of smoking cessation have been discussed with the patient today. The patient has been encouraged to quit smoking. If smoking cessation aids are desired, the patient should contact their primary care provider to discuss appropriate options. Labs/cultures/imaging: Vascular studies were ordered but have not yet been completed. Patient was instructed to leave message with scheduling department so they can return call to schedule. Patient is to notify us when appt is scheduled, so we may arrange for re-wrapping of leg following vascular studies appt. Follow-up: Return to clinic on Friday for nurse visit and changing of the Unna boot. Return to clinic in 1 week for re-evaluation. Return sooner or report to the emergency room should symptoms worsen, or new symptoms arise. Note: [email or web address] speech recognition railroad commissioner software was used to create portions of this document. Sound-alike and misspelled words, as well as other railroad commissioner errors may be contained in the documentation.
[2021-09-21 09:40] VITALS: BP 141/61; PULSE 63; TEMP 35.7; BMI 21.7
--- NOTE | 2021-09-21 11:21 | PCM.WC.PN ---
History of Present Illness Date of Service: 09/21/21 Chief Complaint: left medial ankle ulcer History of Wound: Viral is a pleasant 81-year-old male who presents to the wound healing center for an initial evaluation of his left medial ankle ulcer. He has a past medical history significant for liver transplant (in 1998), thrombocytopenia, stage III CKD, tobacco abuse, and left ankle fracture (in 1959). He states that following his ankle fracture in 1959, a screw was placed in his left ankle. The left ankle screw subsequently became infected and was removed. Since that time, he has had frequent occurrence of left ankle ulcers. These ulcers have occurred at various sites within the medial left ankle region. He has previously been seen by [facility] wound care for his left ankle ulcers. He states that this particular left medial ankle ulcer onset approximately 2 months ago. He has been using Anasept ointment daily to his medial left ankle ulcer (which he had previously received from [facility] wound center). He is washing his ankle ulcer with antibacterial soap and water. He does not use compression. The patient denies fever, chills, general malaise, or poor appetite. The patient has not had increased redness, swelling, or purulent/malodorous drainage from affected area. He has not had any recent wound cultures. He had lab work in April 2021, which was reviewed today, and was significant for chronic kidney disease (creatinine 1.70, estimated GFR 39), and low platelets (130). He reports that at some point he did undergo vascular studies of his lower extremities at the [facility], but does not recall when these were completed. Progress of Wound: Vascular studies were ordered. These have not yet been scheduled, due to reported difficulty with contacting scheduling department. Epi fix was initiated on 09/07/2020. An Unna boot was applied to the left lower extremity. The patient was compliant with keeping Unna boot clean and dry. He denies any complications. His wound size remains the same today, though there is slight improvement in the appearance of the wound and presence of granulation tissue. The patient denies fever, chills, general malaise, or poor appetite. The patient has not had increased redness, swelling, or purulent/malodorous drainage from affected area. Objective Data Objective Data Vital Signs: Vital Signs Temp Pulse Resp BP 96.2 F L 63 18 141/61 H 01/28/22 09:40 09/21/21 09:40 09/14/21 09:33 09/21/21 09:40 Oxygen Delivery Method Room Air Weight: 135 lb Body Mass Index (BMI) 21.7 Charges/Coding Procedures Integumentary 150xxx-152xx: [id number] Skin sub graft trnk/arm/leg Physical Exam Const alert, no apparent distress and healthy appearing General Appearance: cooperative, comfortable and well kempt HEENT Head and Scalp: normocephalic and atraumatic Eyes EOMs intact bilaterally Neck supple and no JVD Resp normal respiratory effort, normal air movement and no use of accessory muscles Extremity normal capillary refill, no joint enlargement and no calf tenderness General Extremity: edema left lower extremity trace Peripheral Pulses: Yes dorsalis pedis pulses present left 1+ Skin General Skin Exam: venous stasis Wounds: wounds noted No malodorous Wound Narrative: Medial left ankle ulcer with subcutaneous layer exposed. Small to moderate amount of devitalized tissue present. No tunneling, undermining, or probing to bone. No periulcer erythema or warmth. No significant tenderness to palpation. No purulent/malodorous drainage. Neuro moves all extremities and no focal motor deficits Psych mental status grossly normal, cooperative and affect normal Debridement Note Debridement Note Wound debrided: Medial left ankle ulcer Laterality: Left Type of Debridement: Excisional debridement Anesthesia Used: 4% Lidocaine Solution Depth: in the subcutaneous layer Percentage of wound debrided: 100 Instrument Used: 3mm curette Tissue Removed: Slough and devitalized tissue Severity: Fat Layer Exposed Amount of bleeding with debridement: Mild Bleeding Controlled with: Pressure Patient tolerated procedure: Patient tolerated procedure well Post-Debridement Measurements and Additional Note: Post-Debridement Measurements/Treatment WC - Nurse 1 - General Ulcer Assessment Start: 08/30/21 13:07 Freq: Status: Active Protocol: BYRON Activity Type Activity Date Activity User E-Sign Co-Sign Detail Recorded Client Recorded Date Recorded By Document 08/30/21 13:07 DL [id number] 08/30/21 13:13 DL Document 09/07/21 09:00 ML [id number] 09/07/21 09:10 ML Document 09/11/21 13:53 DL [id number] 01/18/22 14:02 DL Document 09/14/21 09:33 [place] [id number] 09/14/21 09:45 MT Document 09/21/21 09:40 IA [id number] 09/21/21 09:50 AK 08/30/21 09/07/21 09/11/21 13:07 09:00 13:53 WC - Today's Visit Information Type of service Follow-up Visit Follow-up Visit Nurse-only (Physician/BUTTER WRAPPER (Physician/BUTTER WRAPPER Visit ) ) Arrival Mode Ambulatory Ambulatory Ambulatory Transfer Assistance None None Patient Identification Verified (Name & Yes Yes Yes ) Patient Requires Transmission-Based No Precautions Safety Precautions NA Height and Weight Body Mass Index (BMI) 21.7 21.7 21.7 BMI Classification Normal Normal Normal Vital Signs Temperature (97.8 F-99.1 F) 98.5 F 97.2 F L 97.6 F L Temperature Source Temporal Temporal Temporal Pulse Rate (60-100) 58 L 119 H 57 L Pulse Location Monitor Respiratory Rate (12-18) 18 18 20 H Respiratory rate source Observation Observation Oxygen Delivery Method Blood Pressure (90/60-120/80) 148/64 H 150/100 H 125/54 H Blood Pressure Mean (mm Hg) 92 116 77 Source Monitor Monitor Monitor Position Sitting Blood Pressure Location Left Arm History Since Last Visit- (Skip if this is Patient's initial visit) Have you changed medications since your No No No last visit? Any new allergies or adverse reactions No No No Had a fall/change in ADL's that may No No No increase risk of falls Signs or symptoms of abuse and/or No No No neglect since last visit Have you been in the hospital since your No No No last visit? Has dressing in place as prescribed Yes Yes Yes Has compression in place as prescribed N/A Yes Yes Has offloadiing in place as prescribed N/A N/A N/A Experienced any changes in pain level or No No No management Left Footwear Regular Shoe Regular Shoe Right Footwear Regular Shoe Regular Shoe Pain Scale: 0-10 Numeric Is Patient Pain Free? Yes Yes Yes 09/14/21 09/21/21 09:33 09:40 WC - Today's Visit Information Type of service Follow-up Visit Follow-up Visit (Physician/BUTTER WRAPPER (Physician/BUTTER WRAPPER ) ) Arrival Mode Ambulatory Ambulatory Transfer Assistance Patient Identification Verified (Name & Yes ) Patient Requires Transmission-Based No Precautions Safety Precautions Height and Weight Body Mass Index (BMI) 21.7 21.7 BMI Classification Normal Normal Vital Signs Temperature (97.8 F-99.1 F) 97 F L 96.2 F L Temperature Source Temporal Temporal Pulse Rate (60-100) 65 63 Pulse Location Monitor Monitor Respiratory Rate (12-18) 18 Respiratory rate source Observation Oxygen Delivery Method Room Air Blood Pressure (90/60-120/80) 137/61 H 141/61 H Blood Pressure Mean (mm Hg) 86 87 Source Monitor Monitor Position Sitting Blood Pressure Location Left Arm History Since Last Visit- (Skip if this is Patient's initial visit) Have you changed medications since your No last visit? Any new allergies or adverse reactions No Had a fall/change in ADL's that may No increase risk of falls Signs or symptoms of abuse and/or No neglect since last visit Have you been in the hospital since your No No last visit? Has dressing in place as prescribed Yes Yes Has compression in place as prescribed Yes Yes Has offloadiing in place as prescribed N/A N/A Experienced any changes in pain level or No No management Left Footwear Regular Shoe Regular Shoe Right Footwear Regular Shoe Regular Shoe Pain Scale: 0-10 Numeric Is Patient Pain Free? Yes Yes WC - Nurse 1 - General Ulcer Measurement Start: 08/30/21 13:07 Freq: Status: Active Protocol: Activity Type Activity Date Activity User E-Sign Co-Sign Detail Recorded Client Recorded Date Recorded By Document 08/30/21 13:07 DL [id number] 08/30/21 13:13 DL Document 09/07/21 09:00 ML [id number] 09/07/21 09:10 ML Document 09/11/21 13:53 DL [id number] 09/11/21 14:02 DL Document 09/14/21 09:33 MT [id number] 09/14/21 09:45 MT Document 09/21/21 09:40 AK [id number] 09/21/21 09:50 AK 08/30/21 09/07/21 09/11/21 13:07 09:00 13:53 Wound Center Nurse 1 #1 L medial ankle -Combined with other wound No No -Current Size (cm) - Length 1.8 1 -Current Size (cm) - Width 1.0 2 -Current Size (cm) - Depth 0.3 0.2 -Total Square Cm 1.80 2 -Photo Taken No No -Epithelialization None Present -Tunneling No -Undermining/Tunneling No -Circular Undermining No -Change in Wound Grade/Stage -Exudate Amt Small Medium -Exudate Type Serosanguineous Serosanguineous -Wound Margin Flat & Intact Distinct, Outline Attached -Granulation Amt Small (1-33%) Small (1-33%) -Granulation Quality Pale -Slough/Fibrin Yes Yes -Necrosis Amt Large (67-100%) None Present (0 %) -Necrotic Tissue Type Adherent Slough -Structure Exposed N/A -Texture (Prema-wound Skin Appearance) Assessed Assessed No Abnormality, Assessed -Moisture (Prema-wound Skin Appearance) Assessed,Dry/ Assessed Assessed,Dry/ Scaly Scaly -Color (Prema-wound Skin Appearance) Assessed, Assessed Assessed, Hemosiderin Hemosiderin Staining Staining -Temperature (Prema-wound Skin No Abnormality No Abnormality No Abnormality Appearance) (Pt Warm) (Pt Warm) (Pt Warm) -Tenderness on Palpation (Prema-wound No Skin Appearance) -Ulcer Cleansing Rinsed/ Rinsed/ Soap and Water Irrigated with Irrigated with Saline Saline -Foul Odor after Cleansing No No No -Anesthetic Used 4% Lidocaine 5% Lidocaine Solution Gel Lower Limb Edema Present Yes Yes Right Calf (cm) 26 Right Ankle (cm) 21 Left Calf (cm) 26 25.4 Left Ankle (cm) 22 21.5 09/14/21 09/21/21 09:33 09:40 Wound Center Nurse 1 #1 L medial ankle -Combined with other wound No -Current Size (cm) - Length 1.3 0.9 -Current Size (cm) - Width 2.2 2 -Current Size (cm) - Depth 0.2 0.1 -Total Square Cm 2.86 1.8 -Photo Taken No -Epithelialization -Tunneling No -Undermining/Tunneling No -Circular Undermining No -Change in Wound Grade/Stage No -Exudate Amt Medium Medium -Exudate Type Serosanguineous Serosanguineous -Wound Margin Thickened & Distinct, Rolled Under Outline Attached -Granulation Amt Medium (34-66%) -Granulation Quality Pale,[place] -Slough/Fibrin -Necrosis Amt Medium (34-66%) Small (1-33%) -Necrotic Tissue Type Adherent Slough Adherent Slough -Structure Exposed N/A -Texture (Prema-wound Skin Appearance) Assessed No Abnormality, Assessed -Moisture (Prema-wound Skin Appearance) Assessed No Abnormality, Assessed -Color (Prema-wound Skin Appearance) Assessed Assessed, Hemosiderin Staining -Temperature (Prema-wound Skin No Abnormality No Abnormality Appearance) (Pt Warm) (Pt Warm) -Tenderness on Palpation (Prema-wound No No Skin Appearance) -Ulcer Cleansing Rinsed/ Soap and Water Irrigated with Saline -Foul Odor after Cleansing No No -Anesthetic Used 4% Lidocaine 4% Lidocaine Solution Solution Lower Limb Edema Present Yes Right Calf (cm) Right Ankle (cm) Left Calf (cm) 25.4 25 Left Ankle (cm) 21.5 20.5 WC - Nurse 2 - General Ulcer CM Notes Start: 08/30/21 13:07 Freq: Status: Active Protocol: Activity Type Activity Date Activity User E-Sign Co-Sign Detail Recorded Client Recorded Date Recorded By Document 08/30/21 13:26 MW [id number] 08/30/21 13:30 MW Document 09/07/21 13:21 PL [id number] 09/07/21 13:23 PL Document 09/14/21 10:33 PL [id number] 09/14/21 10:35 PL Document 09/21/21 10:36 PL Desktop 09/21/21 10:38 PL 08/30/21 09/07/21 09/14/21 13:26 13:21 10:33 Wound Center Nurse 2 #1 L medial ankle -Time 13:26 09:28 10:06 -Correct Patient Yes Yes Yes -Correct Side, Site, Position Yes Yes Yes -Correct Procedure Yes Yes Yes -Procedure Performed Yes Yes Yes -Type of Procedure Debridement Debridement Debridement -Clinical Debridement Subcutaneous Subcutaneous Subcutaneous -Tissue Removed Subcutaneous Subcutaneous Subcutaneous -Post Debridement (cm) - Length 1.6 1.2 1.1 -Post Debridement (cm) - Width 1.7 2.1 2.0 -Post Debridement (cm) - Depth 0.2 0.2 0.2 -Total Square (Post) (cm) 2.72 2.52 2.20 -Area of Debridement (cm) - Length 1.6 1.2 1.1 -Area of Debridement (cm) - Width 1.7 2.1 2.0 -Total Square (Area) (cm) 2.72 2.52 2.20 -Tunneling No No No -Undermining/Tunneling No No No -Circular Undermining No No No -Wound/Ulcer Outcome Not Healed Not Healed Not Healed -Ulcer Cleansing Rinsed/ Rinsed/ Rinsed/ Irrigated with Irrigated with Irrigated with Saline Saline Saline -Foul Odor after Cleansing No No No -Bioengineered Tissue No Yes Yes -Type of Bioengineered Tissue Epifix Epifix -Expiration Date 05/25/26 04/25/26 -Product Lot Number [id number] -Percent Used 100 100 -Lot number of Saline Used -Bleeding Controlled with Pressure Pressure Pressure -Offloading No -Treatment Response Procedure Procedure Procedure Tolerated Well Tolerated Well Tolerated Well -Debridement - Subq, 1st 20sq cm Yes No No -Apply Skin Sub - 1st 25 sq cm - Legs 1 1 -Epifix (per sq cm) 4 4 Pain Scale: 0-10 Numeric Is Patient Pain Free? Yes Yes Yes 09/21/21 10:36 Wound Center Nurse 2 #1 L medial ankle -Time 10:10 -Correct Patient Yes -Correct Side, Site, Position Yes -Correct Procedure Yes -Procedure Performed Yes -Type of Procedure Debridement -Clinical Debridement Subcutaneous -Tissue Removed Subcutaneous -Post Debridement (cm) - Length 1.1 -Post Debridement (cm) - Width 2.0 -Post Debridement (cm) - Depth 0.2 -Total Square (Post) (cm) 2.20 -Area of Debridement (cm) - Length 1.1 -Area of Debridement (cm) - Width 2.0 -Total Square (Area) (cm) 2.20 -Tunneling No -Undermining/Tunneling No -Circular Undermining No -Wound/Ulcer Outcome Not Healed -Ulcer Cleansing Rinsed/ Irrigated with Saline -Foul Odor after Cleansing No -Bioengineered Tissue Yes -Type of Bioengineered Tissue Epifix -Expiration Date 05/25/26 -Product Lot Number [id number] -Percent Used 100 -Lot number of Saline Used [id number] -Bleeding Controlled with Pressure -Offloading -Treatment Response Procedure Tolerated Well -Debridement - Subq, 1st 20sq cm No -Apply Skin Sub - 1st 25 sq cm - Legs 1 -Epifix (per sq cm) 4 Pain Scale: 0-10 Numeric Is Patient Pain Free? Yes - Nurse 3 - General Ulcer D/C NN Start: 08/30/21 13:07 Freq: Status: Active Protocol: Activity Type Activity Date Activity User E-Sign Co-Sign Detail Recorded Client Recorded Date Recorded By Document 08/30/21 13:43 [id number] 08/30/21 13:43 JF Document 09/07/21 10:00 AK [id number] 09/07/21 10:01 AK Document 09/11/21 13:53 DL [id number] 09/11/21 14:02 DL Document 09/14/21 10:34 MT [id number] 09/14/21 10:36 MT Document 09/21/21 10:24 MT [id number] 09/21/21 10:25 MT 08/30/21 09/07/21 09/11/21 13:43 10:00 13:53 Wound Care Nurse 3 #1 L medial ankle -Ulcer Cleansing Rinsed/ Rinsed/ Soap and Water Irrigated with Irrigated with Saline Saline -Foul Odor after Cleansing No No No -Negative Pressure Wound Therapy N/A N/A -Primary Dressing Applied Promogran -Primary Dressing Covered/Secured with Dry Gauze & Dry Gauze Roll Gauze, Secured with Tape -Other Covering Epifix,wound veil, steri strips intact -Promogran 2 Left -Lotion applied to leg before No No compression wrap -Multi-Layered Wrap Application Unna Boot - Left ($) -Compression Wrap Unna Boot ($) ( single) -Tubular Bandage Single Layer -Size of Tubigrip Used Size D -Size D ($) 0 Treatment Response Procedure Tolerated Well Vital Signs Temperature (97.8 F-99.1 F) 97.6 F L Temperature Source Temporal Pulse Rate (60-100) 57 L Respiratory Rate (12-18) 20 H Respiratory rate source Observation Blood Pressure (90/60-120/80) 125/54 H Blood Pressure Mean (mm Hg) 77 Source Monitor Pain Scale: 0-10 Numeric Is Patient Pain Free? Yes Yes Yes WC - Visit Discharge Discharge Condition Stable Stable Stable Ambulatory Status Ambulatory Ambulatory Ambulatory Transportation Private Auto Private Auto Private Auto Accompanied by self Medication Reconcilliation completed & Yes No No provided to patient/care provider Clinical Summary of Care Provided Yes Yes Yes Notes: 09/14/21 09/21/21 10:34 10:24 Wound Care Nurse 3 #1 L medial ankle -Ulcer Cleansing Soap and Water Rinsed/ Irrigated with Saline -Foul Odor after Cleansing No -Negative Pressure Wound Therapy N/A -Primary Dressing Applied -Primary Dressing Covered/Secured with Dry Gauze Dry Gauze -Other Covering -Promogran Left -Lotion applied to leg before compression wrap -Multi-Layered Wrap Application Unna Boot - Unna Boot - Left ($) Left ($) -Compression Wrap -Tubular Bandage -Size of Tubigrip Used -Size D ($) Treatment Response Vital Signs Temperature (97.8 F-99.1 F) Temperature Source Pulse Rate (60-100) Respiratory Rate (12-18) Respiratory rate source Blood Pressure (90/60-120/80) Blood Pressure Mean (mm Hg) Source Pain Scale: 0-10 Numeric Is Patient Pain Free? Yes Yes WC - Visit Discharge Discharge Condition Stable Stable Ambulatory Status Ambulatory Ambulatory Transportation Private Auto Private Auto Accompanied by Medication Reconcilliation completed & No No provided to patient/care provider Clinical Summary of Care Provided Yes Yes Notes: home going instructions given. pt verbalized understanding. Assessment/Plan Assessment/Plan (1) Venous stasis ulcer of 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: CODE(S): I83.023 - Varicose veins of left lower extremity with ulcer of ankle; L97.322 - Non-pressure chronic ulcer of 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 QUALIFIERS: Varicose vein presence: with varicose veins Qualified Code(s): I83.023 - Varicose veins of left lower extremity with ulcer of ankle; L97.322 - Non-pressure chronic ulcer of 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 (2) Tobacco use: CODE(S): Z72.0 - Tobacco use (3) Stage III chronic kidney disease: CODE(S): N18.30 - Chronic kidney disease, stage 3 unspecified QUALIFIERS: Chronic kidney disease stage 3 subtype: stage 3b (GFR 30-44) Qualified Code(s): N18.32 - Chronic kidney disease, stage 3b (4) History of fracture of left ankle: CODE(S): Z87.81 - Personal history of (healed) traumatic fracture PLAN: Debridement performed today in clinic as annotated above. Given the duration of the wound and failure of the wound to respond to standard wound care, we applied for advanced skin substitutes (EpiFix) and were approved. EpiFix #3 applied today (2 cm x 2 cm); 100% of the product was used. A small amount of hydrogel was applied atop EpiFix, and this was secured with a wound veil and Steri-Strips. Gauze covering applied. Unna boot applied to the left lower extremity. At home wound-care instructions: Keep Unna boot clean and dry. If at anytime Unna boot becomes uncomfortably tight, elevate the lower extremity. If elevation does not resolve discomfort, please contact the wound center and/or remove the Unna boot. Cover Unna boot with a cast cover or plastic bag while showering. Use caution when showering to avoid falls. Compression: Unna boot Off-loading: Avoid prolonged standing and/or dangling of legs. When seated, feet should be elevated at chest level. Frequent ambulation is encouraged. Diet: Patient encouraged to increase protein intake while taking caution to avoid high carbohydrate and/or sugar intake. Smoking: The risks of smoking and benefits of smoking cessation have been discussed with the patient today. The patient has been encouraged to quit smoking. If smoking cessation aids are desired, the patient should contact their primary care provider to discuss appropriate options. Labs/cultures/imaging: Vascular studies were ordered but have not yet been completed. Patient was instructed to leave message with scheduling department so they can return call to schedule. Patient is to notify us when appt is scheduled, so we may arrange for re-wrapping of leg following vascular studies appt. Follow-up: Return to clinic in 1 week for re-evaluation. Return sooner or report to the emergency room should symptoms worsen, or new symptoms arise. Note: The [employer] speech recognition pediatric licensed practical nurse software was used to create portions of this document. Sound-alike and misspelled words, as well as other pediatric licensed practical nurse errors may be contained in the documentation.
[2021-10-19 09:25] VITALS: BP 142/56; PULSE 58; TEMP 35.7; BMI 21.7
== END 2021-09-24 23:59 ==
LOC: WC 09:45
PROVIDERS: PCP Internal Medicine; Visit Provider Nurse Practitioner Family
DX: I83.023 Varicose veins of left lower extremity with ulcer of ankle (principal); Z94.4 Liver transplant status; L97.322 Non-pressure chronic ulcer of 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; N18.32 Chronic kidney disease, stage 3b; Z72.0 Tobacco use
CPT/HCPCS: 11042; 15271; 29580; 99212; Q4186; G0463

== ENCOUNTER 2021-10-19 09:30 | Outpatient (RCR) | payer MEDICARE, SELFPAY ==
[2021-09-25 00:13] VITALS: BP 141/61; PULSE 63; RESP 18; TEMP 35.7; BMI 21.7
[2021-09-28 09:43] VITALS: BP 156/59; PULSE 69; RESP 20; TEMP 36.2; BMI 21.7
--- NOTE | 2021-09-28 10:01 | PN.PCM_ITS ---
History of Present Illness Date of Service: 09/28/21 Chief Complaint: left medial ankle ulcer History of Wound: Viral is a pleasant 81-year-old male who presents to the wound healing center for an initial evaluation of his left medial ankle ulcer. He has a past medical history significant for liver transplant (in 1998), thrombocytopenia, stage III CKD, tobacco abuse, and left ankle fracture (in 1959). He states that following his ankle fracture in 1959, a screw was placed in his left ankle. The left ankle screw subsequently became infected and was removed. Since that time, he has had frequent occurrence of left ankle ulcers. These ulcers have occurred at various sites within the medial left ankle region. He has previously been seen by [facility] wound care for his left ankle ulcers. He states that this particular left medial ankle ulcer onset approximately 2 mo nths ago. He has been using Anasept ointment daily to his medial left ankle ulcer (which he had previously received from [facility] wound center). He is washing his ankle ulcer with antibacterial soap and water. He does not use compression. The patient denies fever, chills, general malaise, or poor appetite. The patient has not had increased redness, swelling, or purulent/malodorous drainage from affected area. He has not had any recent wound cultures. He had lab work in April 2021, which was reviewed today, and was significant for chronic kidney disease (creatinine 1.70, estimated GFR 39), and low platelets (130). He reports that at some point he did undergo vascular studies of his lower extremities at the [facility], but does not recall when these were completed. Progress of Wound: The patient is tolerating the use of Unna boot and EpiFix well. His wound is stable today, with improvement in appearance and very slight improvement in size. The patient denies fever, chills, general malaise, or poor appetite. The patient has not had increased redness, swelling, or purulent/malodorous drainage from affected area. Objective Data Objective Data Vital Signs: Vital Signs Temp Pulse Resp BP 97.2 F L 69 20 H 156/59 H 09/28/21 09:43 09/28/21 09:43 09/28/21 09:43 09/28/21 09:43 Weight: 135 lb Body Mass Index (BMI) 21.7 Charges/Coding Procedures Integumentary 150xxx-152xx: 23444 Skin sub graft trnk/arm/leg Physical Exam Const alert, no apparent distress and healthy appearing General Appearance: cooperative, comfortable and well kempt HEENT Head and Scalp: normocephalic and atraumatic Eyes EOMs intact bilaterally Neck supple and no JVD Resp normal respiratory effort, normal air movement and no use of accessory muscles Extremity normal capillary refill, no joint enlargement and no calf tenderness General Extremity: Negative for edema Peripheral Pulses: Yes dorsalis pedis pulses present left 1+ Skin General Skin Exam: venous stasis Wounds: wounds noted No malodorous Wound Narrative: Medial left ankle ulcer with subcutaneous layer exposed. Small to moderate amount of devitalized tissue present. No tunneling, undermining, or probing to bone. No periulcer erythema or warmth. No significant tenderness to palpation. No purulent/malodorous drainage. Neuro moves all extremities and no focal motor deficits Psych mental status grossly normal, cooperative and affect normal Debridement Note Debridement Note Wound debrided: Left medial ankle ulcer Laterality: Left Type of Debridement: Excisional debridement Anesthesia Used: 4% Lidocaine Solution Depth: in the subcutaneous layer Percentage of wound debrided: 100 Instrument Used: 3mm curette Tissue Removed: Slough and devitalized tissue Severity: Fat Layer Exposed Amount of bleeding with debridement: Mild Bleeding Controlled with: Pressure Patient tolerated procedure: Patient tolerated procedure well Post-Debridement Measurements and Additional Note: Post-Debridement Measurements/Treatment - Nurse 1 - General Ulcer Assessment Start: 09/28/21 09:38 Freq: Status: Active Protocol: BYRON Activity Type Activity Date Activity User E-Sign Co-Sign Detail Recorded Client Recorded Date Recorded By Document 09/28/21 09:43 HI [id number] 09/28/21 09:46 KEN 09/28/21 09:43 - Today's Visit Information Type of service Follow-up Visit (Physician/SUPERVISOR EVAPORATOR ) Arrival Mode Ambulatory Transfer Assistance None Patient Identification Verified (Name & Yes ) Patient Requires Transmission-Based No Precautions Height and Weight Body Mass Index (BMI) 21.7 BMI Classification Normal Vital Signs Temperature (97.8 F-99.1 F) 97.2 F L Temperature Source Temporal Pulse Rate (60-100) 69 Pulse Location Monitor Respiratory Rate (12-18) 20 H Respiratory rate source Observation Blood Pressure (90/60-120/80) 156/59 H Blood Pressure Mean (mm Hg) 91 Source Monitor History Since Last Visit- (Skip if this is Patient's initial visit) Have you changed medications since your No last visit? Any new allergies or adverse reactions No Had a fall/change in ADL's that may No increase risk of falls Signs or symptoms of abuse and/or No neglect since last visit Have you been in the hospital since your No last visit? Has dressing in place as prescribed Yes Has compression in place as prescribed Yes Has offloadiing in place as prescribed N/A Experienced any changes in pain level or No management Left Footwear Regular Shoe Right Footwear Regular Shoe Pain Scale: 0-10 Numeric Is Patient Pain Free? Yes WC - Nurse 1 - General Ulcer Measurement Start: 09/28/21 09:38 Freq: Status: Active Protocol: Activity Type Activity Date Activity User E-Sign Co-Sign Detail Recorded Client Recorded Date Recorded By Document 09/28/21 09:43 KEN [id number] 09/28/21 09:46 KEN 09/28/21 09:43 Wound Center Nurse 1 #1 L medial ankle -Current Size (cm) - Length 1 -Current Size (cm) - Width 2 -Current Size (cm) - Depth 0.2 -Total Square Cm 2 -Photo Taken No -Exudate Amt Medium -Exudate Type Serosanguineous -Wound Margin Distinct, Outline Attached -Granulation Amt Medium (34-66%) -Granulation Quality Red -Necrosis Amt Medium (34-66%) -Necrotic Tissue Type Adherent Slough -Structure Exposed N/A -Texture (Prema-wound Skin Appearance) Scarring -Moisture (Prema-wound Skin Appearance) No Abnormality -Color (Prema-wound Skin Appearance) Hemosiderin Staining -Temperature (Prema-wound Skin No Abnormality Appearance) (Pt Warm) -Tenderness on Palpation (Prema-wound Yes Skin Appearance) -Ulcer Cleansing Soap and Water -Foul Odor after Cleansing No -Anesthetic Used 4% Lidocaine Solution Left Calf (cm) 26.9 Left Ankle (cm) 19.7 Assessment/Plan Assessment/Plan (1) Venous stasis ulcer of 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: CODE(S): I83.023 - Varicose veins of left lower extremity with ulcer of ankle; L97.322 - Non-pressure chronic ulcer of 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 QUALIFIERS: Varicose vein presence: with varicose veins Qualified Code(s): I83.023 - Varicose veins of left lower extremity with ulcer of ankle; L97.322 - Non-pressure chronic ulcer of 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 (2) Tobacco use: CODE(S): Z72.0 - Tobacco use (3) Stage III chronic kidney disease: CODE(S): N18.30 - Chronic kidney disease, stage 3 unspecified QUALIFIERS: Chronic kidney disease stage 3 subtype: stage 3b (GFR 30-44) Qualified Code(s): N18.32 - Chronic kidney disease, stage 3b (4) History of fracture of left ankle: CODE(S): Z87.81 - Personal history of (healed) traumatic fracture PLAN: Debridement performed today in clinic as annotated above. Given the duration of the wound and failure of the wound to respond to standard wound care, we applied for advanced skin substitutes (EpiFix) and were approved. EpiFix #4 applied today (2 cm x 2 cm); 100% of the product was used. A small amount of hydrogel was applied atop EpiFix, and this was secured with a wound veil and Steri-Strips. Gauze covering applied. Unna boot applied to the left lower extremity. At home wound-care instructions: Keep Unna boot clean and dry. If at anytime Unna boot becomes uncomfortably tight, elevate the lower extremity. If elevation does not resolve discomfort, please contact the wound center and/or remove the Unna boot. Cover Unna boot with a cast cover or plastic bag while showering. Use caution when showering to avoid falls. Compression: Unna boot Off-loading: Avoid prolonged standing and/or dangling of legs. When seated, feet should be elevated at chest level. Frequent ambulation is encouraged. Diet: Patient encouraged to increase protein intake while taking caution to avoid high carbohydrate and/or sugar intake. Smoking: The risks of smoking and benefits of smoking cessation have been discussed with the patient today. The patient has been encouraged to quit smoking. If smoking cessation aids are desired, the patient should contact their primary care provider to discuss appropriate options. Labs/cultures/imaging: Vascular studies were ordered but have not yet been completed. Patient was instructed to leave message with scheduling department so they can return his call to schedule. Patient is to notify us when appt is scheduled, so we may arrange for re-wrapping of leg following vascular studies appt. Follow-up: Return to clinic in 1 week for re-evaluation. Return sooner or report to the emergency room should symptoms worsen, or new symptoms arise. Note: [employer] speech recognition director life insurance software was used to create portions of this document. Sound-alike and misspelled words, as well as other director life insurance errors may be contained in the documentation.
[2021-10-05 09:49] VITALS: BP 134/55; PULSE 59; RESP 18; BMI 21.7
--- NOTE | 2021-10-05 13:39 | PCM.WC.PN ---
History of Present Illness Date of Service: 10/05/21 Chief Complaint: left medial ankle ulcer History of Wound: Viral is a pleasant 81-year-old male who presents to the wound healing center for an initial evaluation of his left medial ankle ulcer. He has a past medical history significant for liver transplant (in 1998), thrombocytopenia, stage III CKD, tobacco abuse, and left ankle fracture (in 1959). He states that following his ankle fracture in 1959, a screw was placed in his left ankle. The left ankle screw subsequently became infected and was removed. Since that time, he has had frequent occurrence of left ankle ulcers. These ulcers have occurred at various sites within the medial left ankle region. He has previously been seen by [facility] wound care for his left ankle ulcers. He states that this particular left medial ankle ulcer onset approximately 2 months ago. He has been using Anasept ointment daily to his medial left ankle ulcer (which he had previously received from [facility] wound center). He is washing his ankle ulcer with antibacterial soap and water. He does not use compression. The patient denies fever, chills, general malaise, or poor appetite. The patient has not had increased redness, swelling, or purulent/malodorous drainage from affected area. He has not had any recent wound cultures. He had lab work in April 2021, which was reviewed today, and was significant for chronic kidney disease (creatinine 1.70, estimated GFR 39), and low platelets (130). He reports that at some point he did undergo vascular studies of his lower extremities at the [facility], but does not recall when these were completed. Progress of Wound: The patient is tolerating the use of Unna boot and EpiFix well. His wound is stable today, with improvement in appearance and very slight improvement in size. The patient denies fever, chills, general malaise, or poor appetite. The patient has not had increased redness, swelling, or purulent/malodorous drainage from affected area. Objective Data Objective Data Vital Signs: Vital Signs Temp Pulse Resp BP 97.2 F L 59 L 18 134/55 H 09/28/21 09:43 10/05/21 09:49 10/05/21 09:49 10/05/21 09:49 Oxygen Delivery Method Room Air Weight: 135 lb Body Mass Index (BMI) 21.7 Charges/Coding Procedures Integumentary 150xxx-152xx: 59100 Skin sub graft trnk/arm/leg Physical Exam Const alert, no apparent distress and healthy appearing General Appearance: cooperative, comfortable and well kempt HEENT Head and Scalp: normocephalic and atraumatic Eyes EOMs intact bilaterally Neck supple and no JVD Resp normal respiratory effort, normal air movement and no use of accessory muscles Extremity normal capillary refill, no joint enlargement and no calf tenderness General Extremity: Negative for edema Peripheral Pulses: Yes dorsalis pedis pulses present left 1+ Skin General Skin Exam: venous stasis Wounds: wounds noted No malodorous Wound Narrative: Medial left ankle ulcer with subcutaneous layer exposed. Small to moderate amount of devitalized tissue present. No tunneling, undermining, or probing to bone. No periulcer erythema or warmth. No significant tenderness to palpation. No purulent/malodorous drainage. Neuro moves all extremities and no focal motor deficits Psych mental status grossly normal, cooperative and affect normal Debridement Note Debridement Note Wound debrided: Left medial ankle Laterality: Left Type of Debridement: Excisional debridement Anesthesia Used: 4% Lidocaine Solution Depth: in the subcutaneous layer Percentage of wound debrided: 100 Instrument Used: 3mm curette Tissue Removed: Slough and devitalized tissue Severity: Fat Layer Exposed Amount of bleeding with debridement: Mild Bleeding Controlled with: Pressure Patient tolerated procedure: Patient tolerated procedure well Post-Debridement Measurements and Additional Note: Post-Debridement Measurements/Treatment - Nurse 1 - General Ulcer Assessment Start: 09/28/21 09:38 Freq: Status: Active Protocol: BYRON Activity Type Activity Date Activity User E-Sign Co-Sign Detail Recorded Client Recorded Date Recorded By Document 09/28/21 09:43 NE [id number] 09/28/21 09:46 AK Document 10/05/21 09:49 MI [id number] 10/05/21 09:53 MT 09/28/21 10/05/21 09:43 09:49 - Today's Visit Information Type of service Follow-up Visit (Physician/GEOGRAPHIC INFORMATION SCIENTIST ) Arrival Mode Ambulatory Transfer Assistance None Patient Identification Verified (Name & Yes ) Patient Requires Transmission-Based No Precautions Height and Weight Body Mass Index (BMI) 21.7 21.7 BMI Classification Normal Normal Vital Signs Temperature (97.8 F-99.1 F) 97.2 F L Temperature Source Temporal Pulse Rate (60-100) 69 59 L Pulse Location Monitor Monitor Respiratory Rate (12-18) 20 H 18 Respiratory rate source Observation Observation Oxygen Delivery Method Room Air Blood Pressure (90/60-120/80) 156/59 H 134/55 H Blood Pressure Mean (mm Hg) 91 81 Source Monitor Monitor Position Sitting Blood Pressure Location Left Arm History Since Last Visit- (Skip if this is Patient's initial visit) Have you changed medications since your No Yes last visit? Any new allergies or adverse reactions No Yes Had a fall/change in ADL's that may No Yes increase risk of falls Signs or symptoms of abuse and/or No Yes neglect since last visit Have you been in the hospital since your No Yes last visit? Has dressing in place as prescribed Yes Yes Has compression in place as prescribed Yes Yes Has offloadiing in place as prescribed N/A Yes Experienced any changes in pain level or No management Left Footwear Regular Shoe Regular Shoe Right Footwear Regular Shoe Regular Shoe Pain Scale: 0-10 Numeric Is Patient Pain Free? Yes Yes - Nurse 1 - General Ulcer Measurement Start: 09/28/21 09:38 Freq: Status: Active Protocol: Activity Type Activity Date Activity User E-Sign Co-Sign Detail Recorded Client Recorded Date Recorded By Document 09/28/21 09:43 NE [id number] 09/28/21 09:46 NE Document 10/05/21 09:49 MI [id number] 10/05/21 09:53 MI 09/28/21 10/05/21 09:43 09:49 Wound Center Nurse 1 #1 L medial ankle -Current Size (cm) - Length 1 2.0 -Current Size (cm) - Width 2 1.1 -Current Size (cm) - Depth 0.2 0.2 -Total Square Cm 2 2.20 -Photo Taken No -Exudate Amt Medium Small -Exudate Type Serosanguineous Serosanguineous -Wound Margin Distinct, Flat & Intact Outline Attached -Granulation Amt Medium (34-66%) Small (1-33%) -Granulation Quality Red Pale,[place] -Necrosis Amt Medium (34-66%) Large (67-100%) -Necrotic Tissue Type Adherent Slough Adherent Slough -Structure Exposed N/A -Texture (Prema-wound Skin Appearance) Scarring Assessed -Moisture (Prema-wound Skin Appearance) No Abnormality Assessed -Color (Prema-wound Skin Appearance) Hemosiderin Assessed Staining -Temperature (Prema-wound Skin No Abnormality No Abnormality Appearance) (Pt Warm) (Pt Warm) -Tenderness on Palpation (Prema-wound Yes Yes Skin Appearance) -Ulcer Cleansing Soap and Water Soap and Water -Foul Odor after Cleansing No -Anesthetic Used 4% Lidocaine 4% Lidocaine Solution Solution Left Calf (cm) 26.9 26.9 Left Ankle (cm) 19.7 19.7 WC - Nurse 2 - General Ulcer CM Notes Start: 09/28/21 09:38 Freq: Status: Active Protocol: Activity Type Activity Date Activity User E-Sign Co-Sign Detail Recorded Client Recorded Date Recorded By Document 09/28/21 10:03 [id number] [id number] 09/28/21 10:06 PL 09/28/21 10:03 Wound Center Nurse 2 #1 L medial ankle -Time 09:48 -Correct Patient Yes -Correct Side, Site, Position Yes -Correct Procedure Yes -Procedure Performed Yes -Type of Procedure Debridement -Clinical Debridement Subcutaneous -Tissue Removed Subcutaneous -Post Debridement (cm) - Length 1.1 -Post Debridement (cm) - Width 1.9 -Post Debridement (cm) - Depth 0.2 -Total Square (Post) (cm) 2.09 -Area of Debridement (cm) - Length 1.1 -Area of Debridement (cm) - Width 1.9 -Total Square (Area) (cm) 2.09 -Tunneling No -Undermining/Tunneling No -Circular Undermining No -Wound/Ulcer Outcome Not Healed -Ulcer Cleansing Rinsed/ Irrigated with Saline -Foul Odor after Cleansing No -Bioengineered Tissue Yes -Type of Bioengineered Tissue Epifix -Expiration Date 05/25/26 -Product Lot Number [id number] -Percent Used 100 -Lot number of Saline Used [id number] -Bleeding Controlled with Pressure -Treatment Response Procedure Tolerated Well -Debridement - Subq, 1st 20sq cm No -Apply Skin Sub - 1st 25 sq cm - Legs 1 -Epifix (per sq cm) 4 Pain Scale: 0-10 Numeric Is Patient Pain Free? Yes WC - Nurse 3 - General Ulcer D/C NN Start: 09/28/21 09:38 Freq: Status: Active Protocol: Activity Type Activity Date Activity User E-Sign Co-Sign Detail Recorded Client Recorded Date Recorded By Document 09/28/21 10:03 DL [id number] 09/28/21 10:04 DL 09/28/21 10:03 Wound Care Nurse 3 #1 L medial ankle -Other Dressing Epifix Left -Multi-Layered Wrap Application Unna Boot - Left ($) Treatment Response Procedure Tolerated Well Pain Scale: 0-10 Numeric Is Patient Pain Free? Yes WC - Visit Discharge Discharge Condition Stable Ambulatory Status Ambulatory Transportation Private Auto Assessment/Plan Assessment/Plan (1) Venous stasis ulcer of 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: CODE(S): I83.023 - Varicose veins of left lower extremity with ulcer of ankle; L97.322 - Non-pressure chronic ulcer of 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 QUALIFIERS: Varicose vein presence: with varicose veins Qualified Code(s): I83.023 - Varicose veins of left lower extremity with ulcer of ankle; L97.322 - Non-pressure chronic ulcer of 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 (2) Tobacco use: CODE(S): Z72.0 - Tobacco use (3) Stage III chronic kidney disease: CODE(S): N18.30 - Chronic kidney disease, stage 3 unspecified QUALIFIERS: Chronic kidney disease stage 3 subtype: stage 3b (GFR 30-44) Qualified Code(s): N18.32 - Chronic kidney disease, stage 3b (4) History of fracture of left ankle: CODE(S): Z87.81 - Personal history of (healed) traumatic fracture PLAN: Debridement performed today in clinic as annotated above. Given the duration of the wound and failure of the wound to respond to standard wound care, we applied for advanced skin substitutes (EpiFix) and were approved. EpiFix #5 applied today (disc); 100% of the product was used. A small amount of hydrogel was applied atop EpiFix, and this was secured with a wound veil and Steri-Strips. Promogran applied atop wound veil. Unna boot applied to the left lower extremity. At home wound-care instructions: Keep Unna boot clean and dry. If at anytime Unna boot becomes uncomfortably tight, elevate the lower extremity. If elevation does not resolve discomfort, please contact the wound center and/or remove the Unna boot. Cover Unna boot with a cast cover or plastic bag while showering. Use caution when showering to avoid falls. Compression: Unna boot Off-loading: Avoid prolonged standing and/or dangling of legs. When seated, feet should be elevated at chest level. Frequent ambulation is encouraged. Diet: Patient encouraged to increase protein intake while taking caution to avoid high carbohydrate and/or sugar intake. Smoking: The risks of smoking and benefits of smoking cessation have been discussed with the patient today. The patient has been encouraged to quit smoking. If smoking cessation aids are desired, the patient should contact their primary care provider to discuss appropriate options. Labs/cultures/imaging: Vascular studies are scheduled for October 15. Next week we will discuss arrangement for re-wrapping of leg following vascular studies appt. Follow-up: Return to clinic in 1 week for re-evaluation. Return sooner or report to the emergency room should symptoms worsen, or new symptoms arise. Note: [employer] speech recognition media marketing manager software was used to create portions of this document. Sound-alike and misspelled words, as well as other media marketing manager errors may be contained in the documentation.
[2021-10-12 09:38] VITALS: BP 124/58; PULSE 57; RESP 18; TEMP 36.1; BMI 21.7
--- NOTE | 2021-10-12 12:23 | PCM.WC.PN ---
History of Present Illness Date of Service: 10/12/21 Chief Complaint: left medial ankle ulcer History of Wound: Viral is a pleasant 81-year-old male who presents to the wound healing center for an initial evaluation of his left medial ankle ulcer. He has a past medical history significant for liver transplant (in 1998), thrombocytopenia, stage III CKD, tobacco abuse, and left ankle fracture (in 1959). He states that following his ankle fracture in 1959, a screw was placed in his left ankle. The left ankle screw subsequently became infected and was removed. Since that time, he has had frequent occurrence of left ankle ulcers. These ulcers have occurred at various sites within the medial left ankle region. He has previously been seen by [facility] wound care for his left ankle ulcers. He states that this particular left medial ankle ulcer onset approximately 2 months ago. He has been using Anasept ointment daily to his medial left ankle ulcer (which he had previously received from [facility] wound center). He is washing his ankle ulcer with antibacterial soap and water. He does not use compression. The patient denies fever, chills, general malaise, or poor appetite. The patient has not had increased redness, swelling, or purulent/malodorous drainage from affected area. He has not had any recent wound cultures. He had lab work in April 2021, which was reviewed today, and was significant for chronic kidney disease (creatinine 1.70, estimated GFR 39), and low platelets (130). He reports that at some point he did undergo vascular studies of his lower extremities at the [facility], but does not recall when these were completed. Progress of Wound: The patient is tolerating the use of Unna boot and EpiFix well. His wound is stable today, though no change in size or appearance. The patient denies fever, chills, general malaise, or poor appetite. The patient has not had increased redness, swelling, or purulent/malodorous drainage from affected area. He does have a rash of the left lower extremity near the boss area, and reports this area is pruritic. Objective Data Objective Data Vital Signs: Vital Signs Temp Pulse Resp BP 97 F L 57 L 18 124/58 H 10/12/21 09:38 10/12/21 09:38 10/12/21 09:38 10/12/21 09:38 Oxygen Delivery Method Room Air Weight: 135 lb Body Mass Index (BMI) 21.7 Charges/Coding Procedures Integumentary 150xxx-152xx: 06105 Skin sub graft trnk/arm/leg Physical Exam Const alert, no apparent distress and healthy appearing General Appearance: cooperative, comfortable and well kempt HEENT Head and Scalp: normocephalic and atraumatic Eyes EOMs intact bilaterally Neck supple and no JVD Resp normal respiratory effort, normal air movement and no use of accessory muscles Extremity normal capillary refill, no joint enlargement and no calf tenderness General Extremity: Negative for edema Peripheral Pulses: Yes dorsalis pedis pulses present left 1+ Skin General Skin Exam: venous stasis Wounds: wounds noted No malodorous Wound Narrative: Medial left ankle ulcer with subcutaneous layer exposed. Small to moderate amount of devitalized tissue present. No tunneling, undermining, or probing to bone. No periulcer erythema or warmth. No significant tenderness to palpation. No purulent/malodorous drainage. Raised, erythematous rash of left boss/calf area. No significant warmth to touch. Neuro moves all extremities and no focal motor deficits Psych mental status grossly normal, cooperative and affect normal Debridement Note Debridement Note Wound debrided: Left ankle Laterality: Left Type of Debridement: Excisional debridement Anesthesia Used: 4% Lidocaine Solution Depth: in the subcutaneous layer Percentage of wound debrided: 100 Instrument Used: 3mm curette Tissue Removed: Slough and devitalized tissue Severity: Fat Layer Exposed Amount of bleeding with debridement: Mild Bleeding Controlled with: Pressure Patient tolerated procedure: Patient tolerated procedure well Post-Debridement Measurements and Additional Note: Post-Debridement Measurements/Treatment - Nurse 1 - General Ulcer Assessment Start: 09/28/21 09:38 Freq: Status: Active Protocol: BYRON Activity Type Activity Date Activity User E-Sign Co-Sign Detail Recorded Client Recorded Date Recorded By Document 09/28/21 09:43 AK [id number] 09/28/21 09:46 AK Document 10/05/21 09:49 MT [id number] 10/05/21 09:53 MT Document 10/12/21 09:38 CA [id number] 10/12/21 09:44 MT 09/28/21 10/05/21 10/12/21 09:43 09:49 09:38 - Today's Visit Information Type of service Follow-up Visit (Physician/[facility] ) Arrival Mode Ambulatory Transfer Assistance None Patient Identification Verified (Name & Yes ) Patient Requires Transmission-Based No Precautions Height and Weight Body Mass Index (BMI) 21.7 21.7 21.7 BMI Classification Normal Normal Normal Vital Signs Temperature (97.8 F-99.1 F) 97.2 F L 97 F L Temperature Source Temporal Temporal Pulse Rate (60-100) 69 59 L 57 L Pulse Location Monitor Monitor Monitor Respiratory Rate (12-18) 20 H 18 18 Respiratory rate source Observation Observation Observation Oxygen Delivery Method Room Air Room Air Blood Pressure (90/60-120/80) 156/59 H 134/55 H 124/58 H Blood Pressure Mean (mm Hg) 91 81 80 Source Monitor Monitor Position Sitting Blood Pressure Location Left Arm History Since Last Visit- (Skip if this is Patient's initial visit) Have you changed medications since your No Yes last visit? Any new allergies or adverse reactions No Yes Had a fall/change in ADL's that may No Yes increase risk of falls Signs or symptoms of abuse and/or No Yes neglect since last visit Have you been in the hospital since your No Yes last visit? Has dressing in place as prescribed Yes Yes Yes Has compression in place as prescribed Yes Yes Yes Has offloadiing in place as prescribed N/A Yes Yes Experienced any changes in pain level or No Yes management Left Footwear Regular Shoe Regular Shoe Regular Shoe Right Footwear Regular Shoe Regular Shoe Regular Shoe Pain Scale: 0-10 Numeric Is Patient Pain Free? Yes Yes Yes - Nurse 1 - General Ulcer Measurement Start: 09/28/21 09:38 Freq: Status: Active Protocol: Activity Type Activity Date Activity User E-Sign Co-Sign Detail Recorded Client Recorded Date Recorded By Document 09/28/21 09:43 AK [id number] 09/28/21 09:46 AK Document 10/05/21 09:49 MT [id number] 10/05/21 09:53 MT Document 10/12/21 09:38 MT [id number] 10/12/21 09:44 MT 09/28/21 10/05/21 10/12/21 09:43 09:49 09:38 Wound Center Nurse 1 #1 L medial ankle -Current Size (cm) - Length 1 2.0 1.2 -Current Size (cm) - Width 2 1.1 1.8 -Current Size (cm) - Depth 0.2 0.2 0.3 -Total Square Cm 2 2.20 2.16 -Photo Taken No -Exudate Amt Medium Small Medium -Exudate Type Serosanguineous Serosanguineous Serosanguineous -Wound Margin Distinct, Flat & Intact Thickened & Outline Rolled Under Attached -Granulation Amt Medium (34-66%) Small (1-33%) Medium (34-66%) -Granulation Quality Red Pale,Deercroft Pale,Deercroft -Necrosis Amt Medium (34-66%) Large (67-100%) Medium (34-66%) -Necrotic Tissue Type Adherent Slough Adherent Slough Adherent Slough -Structure Exposed N/A -Texture (Prema-wound Skin Appearance) Scarring Assessed -Moisture (Prema-wound Skin Appearance) No Abnormality Assessed Assessed -Color (Prema-wound Skin Appearance) Hemosiderin Assessed Assessed Staining -Temperature (Prema-wound Skin No Abnormality No Abnormality No Abnormality Appearance) (Pt Warm) (Pt Warm) (Pt Warm) -Tenderness on Palpation (Prema-wound Yes Yes No Skin Appearance) -Ulcer Cleansing Soap and Water Soap and Water Soap and Water -Foul Odor after Cleansing No No -Anesthetic Used 4% Lidocaine 4% Lidocaine 5% Lidocaine Solution Solution Gel Left Calf (cm) 26.9 26.9 Left Ankle (cm) 19.7 19.7 WC - Nurse 2 - General Ulcer CM Notes Start: 09/28/21 09:38 Freq: Status: Active Protocol: Activity Type Activity Date Activity User E-Sign Co-Sign Detail Recorded Client Recorded Date Recorded By Document 09/28/21 10:03 PL [id number] 09/28/21 10:06 PL Document 10/05/21 16:06 PL [id number] 10/06/21 16:09 PL Document 10/12/21 11:06 PL [id number] 10/12/21 11:09 PL 09/28/21 10/05/21 10/12/21 10:03 16:06 11:06 Wound Center Nurse 2 #1 L medial ankle -Time 09:48 10:20 09:53 -Correct Patient Yes Yes Yes -Correct Side, Site, Position Yes Yes Yes -Correct Procedure Yes Yes Yes -Procedure Performed Yes Yes Yes -Type of Procedure Debridement Debridement Debridement -Clinical Debridement Subcutaneous Subcutaneous Subcutaneous -Tissue Removed Subcutaneous Subcutaneous Subcutaneous -Post Debridement (cm) - Length 1.1 2.0 1.1 -Post Debridement (cm) - Width 1.9 1.1 1.8 -Post Debridement (cm) - Depth 0.2 0.2 0.2 -Total Square (Post) (cm) 2.09 2.20 1.98 -Area of Debridement (cm) - Length 1.1 2.0 1.1 -Area of Debridement (cm) - Width 1.9 1.1 1.8 -Total Square (Area) (cm) 2.09 2.20 1.98 -Tunneling No No No -Undermining/Tunneling No No No -Circular Undermining No No No -Wound/Ulcer Outcome Not Healed Not Healed Not Healed -Ulcer Cleansing Rinsed/ Rinsed/ Rinsed/ Irrigated with Irrigated with Irrigated with Saline Saline Saline -Foul Odor after Cleansing No No No -Bioengineered Tissue Yes Yes Yes -Type of Bioengineered Tissue Epifix Epifix 18mm Epifix 18mm Disc Disc -Expiration Date 05/25/26 06/25/26 06/25/26 -Product Lot Number [id number] -Percent Used 100 100 -Lot number of Saline Used [id number] -Bleeding Controlled with Pressure Pressure Pressure -Treatment Response Procedure Procedure Procedure Tolerated Well Tolerated Well Tolerated Well -Debridement - Subq, 1st 20sq cm No No No -Apply Skin Sub - 1st 25 sq cm - Legs 1 1 1 -Epifix (per sq cm) 4 -Epifix 18mm Disc 3 3 Pain Scale: 0-10 Numeric Is Patient Pain Free? Yes Yes Yes WC - Nurse 3 - General Ulcer D/C NN Start: 09/28/21 09:38 Freq: Status: Active Protocol: Activity Type Activity Date Activity User E-Sign Co-Sign Detail Recorded Client Recorded Date Recorded By Document 09/28/21 10:03 DL [id number] 09/28/21 10:04 DL Document 10/05/21 16:06 PL [id number] 10/06/21 16:09 PL Edit Result 10/05/21 16:06 PL (1) [id number] 10/08/21 08:46 PL Document 10/12/21 10:19 [id number] 10/12/21 10:20 JF (1) Left - Multi-Layered Wrap Application => Unna Boot - Left ( => $) 09/28/21 10/05/21 10/12/21 10:03 16:06 10:19 Wound Care Nurse 3 #1 L medial ankle -Ulcer Cleansing Rinsed/ Irrigated with Saline -Foul Odor after Cleansing No -Other Dressing Epifix -Primary Dressing Covered/Secured with Dry Gauze & Dry Gauze & Roll Gauze, Roll Gauze, Secured with Secured with Tape Tape Left -Multi-Layered Wrap Application Unna Boot - Unna Boot - Left ($) Left ($) -Tubular Bandage Double Layer -Size of Tubigrip Used Size D -Size D ($) 2 Treatment Response Procedure Tolerated Well Pain Scale: 0-10 Numeric Is Patient Pain Free? Yes Yes Yes WC - Visit Discharge Discharge Condition Stable Stable Stable Ambulatory Status Ambulatory Ambulatory Ambulatory Transportation Private Auto Private Auto Private Auto Medication Reconcilliation completed & Yes provided to patient/care provider Clinical Summary of Care Provided Yes Assessment/Plan Assessment/Plan (1) Venous stasis ulcer of 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: CODE(S): I83.023 - Varicose veins of left lower extremity with ulcer of ankle; L97.322 - Non-pressure chronic ulcer of 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 QUALIFIERS: Varicose vein presence: with varicose veins Qualified Code(s): I83.023 - Varicose veins of left lower extremity with ulcer of ankle; L97.322 - Non-pressure chronic ulcer of 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 (2) Tobacco use: CODE(S): Z72.0 - Tobacco use (3) Stage III chronic kidney disease: CODE(S): N18.30 - Chronic kidney disease, stage 3 unspecified QUALIFIERS: Chronic kidney disease stage 3 subtype: stage 3b (GFR 30-44) Qualified Code(s): N18.32 - Chronic kidney disease, stage 3b (4) History of fracture of left ankle: CODE(S): Z87.81 - Personal history of (healed) traumatic fracture PLAN: Debridement performed today in clinic as annotated above. Given the duration of the wound and failure of the wound to respond to standard wound care, we applied for advanced skin substitutes (EpiFix) and were approved. EpiFix #6 applied today (disc); 100% of the product was used. A small amount of hydrogel was applied atop EpiFix, and this was secured with a wound veil and Steri-Strips. Promogran applied atop wound veil. Double Tubigrip's applied to the left lower extremity. At home wound-care instructions: Keep double Tubigrip's clean and dry. Cover Tubigrip's with a cast cover or plastic bag while showering. Use caution when showering to avoid falls. You may remove double Tubigrip's for your vascular studies, and reapply following completion of the studies. Compression: Double Tubigrip Off-loading: Avoid prolonged standing and/or dangling of legs. When seated, feet should be elevated at chest level. Frequent ambulation is encouraged. Diet: Patient encouraged to increase protein intake while taking caution to avoid high carbohydrate and/or sugar intake. Smoking: The risks of smoking and benefits of smoking cessation have been discussed with the patient today. The patient has been encouraged to quit smoking. If smoking cessation aids are desired, the patient should contact their primary care provider to discuss appropriate options. Labs/cultures/imaging: Vascular studies are scheduled for October 15. Wound recultured today due to the presence of rash. Follow-up: Return to clinic in 1 week for re-evaluation. Return sooner or report to the emergency room should symptoms worsen, or new symptoms arise. Note: [employer] speech recognition remote sensing advisor software was used to create portions of this document. Sound-alike and misspelled words, as well as other remote sensing advisor errors may be contained in the documentation.
--- NOTE | 2021-10-15 08:55 | VDLE_ITS ---
Reason For Study: Venous insufficiency RIGHT LEFT CFV is compressible, spontaneous, phasic, CFV is compressible, spontaneous, phasic, competent and demonstrates normal competent, and demonstrates normal augmentation. augmentation. FV is compressible, spontaneous, phasic, FV is compressible, spontaneous, phasic, competent and demonstrates normal competent and demonstrates normal augmentation. augmentation. POP V is compressible, spontaneous, phasic, POP V is compressible, spontaneous, phasic, competent and demonstrates normal competent and demonstrates normal augmentation. augmentation. T/P Trunk is compressible. T/P Trunk is compressible. PTV is compressible. PTV is compressible. RT PerV is compressible. LT PerV is compressible. SFJ is competent and measures 0.43 x 0.43 cm. SFJ is competent and measures 0.52 x 0.51 cm. GSV proximal thigh measures 0.22 x 0.23 cm. GSV proximal thigh measures 0.30 x 0.30 cm. GSV at knee measures 0.23 x 0.24 cm. GSV at knee measures 0.31 x 0.28 cm. GSV is competent throughout. GSV is competent throughout. SSV at junction is competent and measures SSV at junction is competent and measures 0.20 x 0.21 cm. 0.24 x 0.26 cm. Procedure This is a venous duplex using B-mode, color flow and spectral Doppler. Exam performed in department. Patient was scanned in reverse Trendelenburg position during reflux assessment. VL/Venous Duplex US - Perry Extrem Interpretation Summary Deep veins of the lower extremities are bilaterally patent and compressible seg mentally. There is no evidence of deep vein thrombosis on either side. Valvular competence appears in tact within the proximal deep venous systems bilaterally. The great saphenous veins appear bila terally patent and compressible segmentally. Sapheno-femoral junctions are bilaterally competent . Valvular competence appears to be intact segmentally within the great saphenous veins bilaterally. Small saphenous veins are patent and competent bilaterally. Ordering Physician: Delano Chinchilla Referring Physician: Dwight Cruz M.D. Performed By: Genna Stone RVT
--- NOTE | 2021-10-15 08:56 | ART_ITS ---
Reason For Study: PAD Procedure A bilateral lower extremity continuous wave Doppler with analog waveform analysis,segmental pressures,and ankle brachial indexes without exercise. Left Segmental Pressures Left brachial= 146mmHg. Left thigh = 152mmHg. Left calf = 128mmHg. Left dorsalis pedis artery = 120mmHg. Left digit = 88 mmHg. The left dorsalis pedis waveforms are biphasic. Right Segmental Pressures Right brachial= 147mmHg. Right thigh = 170mmHg. Right calf = 137mmHg. Right posterior tibial artery = 129mmHg. Right dorsalis pedis artery = 134mmHg. Right digit = 109 mmHg. The right dorsalis pedis waveforms are triphasic. The right posterior tibial artery waveforms are biphasic. Indices The right ankle brachial index by the dorsalis pedis is 0.91. The right ankle brachial index by the posterior tibial artery is 0.88. The right digital-brachial index is 0.74. The left ankle brachial index by the dorsalis pedis is 0.82. The left digital-brachial index is 0.60. VL/Lower Ext Art Exam w/o Exercis Interpretation Summary Biphasic and triphasic Doppler waveforms are noted at ankle level on the right. Biphasic Doppler waveforms are noted at ankle level on the left. Pulse-volume recordings appear satisfactory at all levels bilaterally, including low thigh, calf, ankle, and digital levels. The r esting right ankle- brachial index is normal. The resting left ankle-brachial index is mildly dimin ished. The right digital-brachial index is normal. The left digital-brachial index is mildly dim inished. Arterial flow appears normal in the right lower extremity. 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 Ordering Physician: Delano Chinchilla Referring Physician: Dwight Cruz M.D. Performed By: Genna Stone RVT
--- NOTE | 2021-10-16 08:13 | WC ---
Patient notified that culture had a positive result and that the MANAGER OF CREATIVE SERVICES would like to start him on an ATB. ATB was sent to the pharmacy at the [facility].
[2021-10-19 10:12] VITALS: BP 142/69; PULSE 62; TEMP 36.1; BMI 21.7
--- NOTE | 2021-10-19 10:38 | RAD_ITS ---
EXAM: XR LEFT ANKLE COMPLETE, 3 OR MORE VIEWS CLINICAL INDICATION: NON HEALING WOUND TECHNIQUE: Frontal, lateral and oblique views of the left ankle. This report was created using [employer] report generation technology. COMPARISON: None. FINDINGS: BONES/JOINTS: Talar spur visualized. Fusion of the ankle mortise. Fusion of the tibia to the fibula. No acute fracture. No subluxation. Normal alignment. Preservation of the joint space. No sclerotic or destructive changes observed. SOFT TISSUES: Unremarkable. No soft tissue swelling or gas. No radiopaque foreign body. RAD/Ankle min 3 Views IMPRESSION: No acute findings in the left ankle. Electronically Signed: Shay Ramirez MD at 17:02 EST Reading Location ID and State: [facility] / [place] , Service support ,
--- NOTE | 2021-10-19 14:12 | PCM.WC.PN ---
History of Present Illness Date of Service: 10/19/21 Chief Complaint: left medial ankle ulcer History of Wound: Viral is a pleasant 81-year-old male who presents to the wound healing center for an initial evaluation of his left medial ankle ulcer. He has a past medical history significant for liver transplant (in 1998), thrombocytopenia, stage III CKD, tobacco abuse, and left ankle fracture (in 1959). He states that following his ankle fracture in 1959, a screw was placed in his left ankle. The left ankle screw subsequently became infected and was removed. Since that time, he has had frequent occurrence of left ankle ulcers. These ulcers have occurred at various sites within the medial left ankle region. He has previously been seen by [facility] wound care for his left ankle ulcers. He states that this particular left medial ankle ulcer onset approximately 2 months ago. He has been using Anasept ointment daily to his medial left ankle ulcer (which he had previously received from [facility] wound center). He is washing his ankle ulcer with antibacterial soap and water. He does not use compression. The patient denies fever, chills, general malaise, or poor appetite. The patient has not had increased redness, swelling, or purulent/malodorous drainage from affected area. He has not had any recent wound cultures. He had lab work in April 2021, which was reviewed today, and was significant for chronic kidney disease (creatinine 1.70, estimated GFR 39), and low platelets (130). He reports that at some point he did undergo vascular studies of his lower extremities at the [facility], but does not recall when these were completed. Progress of Wound: The patient is tolerating the use of EpiFix well. His wound is stable today, though no change in size or appearance. The patient denies fever, chills, general malaise, or poor appetite. The patient has not had increased redness, swelling, or purulent/malodorous drainage from affected area. He does have a pruritic rash of the left lower extremity near the boss area, which has improved in the past week. Arterial studies (10/15/21): Arterial flow appears normal in the right lower extremity. 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 Venous studies (10/15/21): Unremarkable Wound culture from 10/12/2021 was positive for 1+ Staphylococcus pseudointermedius and growth of corynebacterium pseudodiphtheritic; no anaerobic growth. The patient was started on a 10 day course of doxycycline 100 mg twice daily, and is tolerating this well. Objective Data Objective Data Vital Signs: Vital Signs Temp Pulse Resp BP 96.9 F L 62 18 142/69 H 10/19/21 10:12 10/19/21 10:12 10/12/21 09:38 10/19/21 10:12 Oxygen Delivery Method Room Air Weight: 135 lb Body Mass Index (BMI) 21.7 Lab / Micro Data Micro: Microbiology 10/12/21 09:55 Wound Abcess - Ankle Gram Stain - Final 10/12/21 09:55 Wound Abcess - Ankle Wound Culture - Final Staphylococcus pseudintermediu Corynebact. pseudodiphtheritic 10/12/21 09:55 Wound Abcess - Ankle Anaerobic Culture - Final No anaerobic bacteria isolated. Charges/Coding Procedures Integumentary [id number]: [id number] Lary subq tissue 20 sq cm/< Physical Exam Const alert, no apparent distress and healthy appearing General Appearance: cooperative, comfortable and well kempt HEENT Head and Scalp: normocephalic and atraumatic Eyes EOMs intact bilaterally Neck supple and no JVD Resp normal respiratory effort, normal air movement and no use of accessory muscles Extremity normal capillary refill, no joint enlargement and no calf tenderness General Extremity: Negative for edema Peripheral Pulses: Yes dorsalis pedis pulses present left 1+ Skin General Skin Exam: venous stasis Wounds: wounds noted No malodorous Wound Narrative: Medial left ankle ulcer with subcutaneous layer exposed. Small to moderate amount of devitalized tissue present. No tunneling, undermining, or probing to bone. No periulcer erythema or warmth. No significant tenderness to palpation. No purulent/malodorous drainage. Erythematous rash of left boss/calf area, no longer raised. No significant warmth to touch. Neuro moves all extremities and no focal motor deficits Psych mental status grossly normal, cooperative and affect normal Debridement Note Debridement Note Wound debrided: Medial left ankle ulcer Laterality: Left Type of Debridement: Excisional debridement Anesthesia Used: 4% Lidocaine Solution Depth: in the subcutaneous layer Percentage of wound debrided: 100 Instrument Used: 3mm curette Tissue Removed: Slough and devitalized tissue Severity: Fat Layer Exposed Amount of bleeding with debridement: Mild Bleeding Controlled with: Pressure Patient tolerated procedure: Patient tolerated procedure well Post-Debridement Measurements and Additional Note: Post-Debridement Measurements/Treatment - Nurse 1 - General Ulcer Assessment Start: 09/28/21 09:38 Freq: Status: Active Protocol: BYRON Activity Type Activity Date Activity User E-Sign Co-Sign Detail Recorded Client Recorded Date Recorded By Document 09/28/21 09:43 NC [id number] 09/28/21 09:46 AK Document 10/05/21 09:49 RI [id number] 10/05/21 09:53 MT Document 10/12/21 09:38 MT [id number] 10/12/21 09:44 MT Document 10/19/21 10:12 AK [id number] 10/19/21 10:13 AK 09/28/21 10/05/21 10/12/21 09:43 09:49 09:38 - Today's Visit Information Type of service Follow-up Visit (Physician/RETAIL ZONE SPECIALIST ) Arrival Mode Ambulatory Transfer Assistance None Patient Identification Verified (Name & Yes ) Patient Requires Transmission-Based No Precautions Safety Precautions Height and Weight Body Mass Index (BMI) 21.7 21.7 21.7 BMI Classification Normal Normal Normal Vital Signs Temperature (97.8 F-99.1 F) 97.2 F L 97 F L Temperature Source Temporal Temporal Pulse Rate (60-100) 69 59 L 57 L Pulse Location Monitor Monitor Monitor Respiratory Rate (12-18) 20 H 18 18 Respiratory rate source Observation Observation Observation Oxygen Delivery Method Room Air Room Air Blood Pressure (90/60-120/80) 156/59 H 134/55 H 124/58 H Blood Pressure Mean (mm Hg) 91 81 80 Source Monitor Monitor Position Sitting Blood Pressure Location Left Arm History Since Last Visit- (Skip if this is Patient's initial visit) Have you changed medications since your No Yes last visit? Any new allergies or adverse reactions No Yes Had a fall/change in ADL's that may No Yes increase risk of falls Signs or symptoms of abuse and/or No Yes neglect since last visit Have you been in the hospital since your No Yes last visit? Has dressing in place as prescribed Yes Yes Yes Has compression in place as prescribed Yes Yes Yes Has offloadiing in place as prescribed N/A Yes Yes Experienced any changes in pain level or No Yes management Left Footwear Regular Shoe Regular Shoe Regular Shoe Right Footwear Regular Shoe Regular Shoe Regular Shoe Pain Scale: 0-10 Numeric Is Patient Pain Free? Yes Yes Yes 10/19/21 10:12 - Today's Visit Information Type of service Follow-up Visit (Physician/RETAIL ZONE SPECIALIST ) Arrival Mode Ambulatory Transfer Assistance Patient Identification Verified (Name & Yes ) Patient Requires Transmission-Based No Precautions Safety Precautions NA Height and Weight Body Mass Index (BMI) 21.7 BMI Classification Normal Vital Signs Temperature (97.8 F-99.1 F) 96.9 F L Temperature Source Temporal Pulse Rate (60-100) 62 Pulse Location Monitor Respiratory Rate (12-18) Respiratory rate source Oxygen Delivery Method Blood Pressure (90/60-120/80) 142/69 H Blood Pressure Mean (mm Hg) 93 Source Monitor Position Blood Pressure Location History Since Last Visit- (Skip if this is Patient's initial visit) Have you changed medications since your No last visit? Any new allergies or adverse reactions No Had a fall/change in ADL's that may No increase risk of falls Signs or symptoms of abuse and/or No neglect since last visit Have you been in the hospital since your No last visit? Has dressing in place as prescribed Yes Has compression in place as prescribed N/A Has offloadiing in place as prescribed N/A Experienced any changes in pain level or No management Left Footwear Regular Shoe Right Footwear Regular Shoe Pain Scale: 0-10 Numeric Is Patient Pain Free? Yes - Nurse 1 - General Ulcer Measurement Start: 09/28/21 09:38 Freq: Status: Active Protocol: Activity Type Activity Date Activity User E-Sign Co-Sign Detail Recorded Client Recorded Date Recorded By Document 09/28/21 09:43 AK [id number] 09/28/21 09:46 AK Document 10/05/21 09:49 MT [id number] 10/05/21 09:53 MT Document 10/12/21 09:38 MT [id number] 10/12/21 09:44 MT Document 10/19/21 10:12 AK [id number] 10/19/21 10:13 AK 0210/05/21 10/12/21 09:43 09:49 09:38 Wound Center Nurse 1 #1 L medial ankle -Combined with other wound -Current Size (cm) - Length 1 2.0 1.2 -Current Size (cm) - Width 2 1.1 1.8 -Current Size (cm) - Depth 0.2 0.2 0.3 -Total Square Cm 2 2.20 2.16 -Photo Taken No -Epithelialization -Tunneling -Undermining/Tunneling -Circular Undermining -Exudate Amt Medium Small Medium -Exudate Type Serosanguineous Serosanguineous Serosanguineous -Wound Margin Distinct, Flat & Intact Thickened & Outline Rolled Under Attached -Granulation Amt Medium (34-66%) Small (1-33%) Medium (34-66%) -Granulation Quality Red Pale,[place] Pale,[place] -Slough/Fibrin -Necrosis Amt Medium (34-66%) Large (67-100%) Medium (34-66%) -Necrotic Tissue Type Adherent Slough Adherent Slough Adherent Slough -Structure Exposed N/A -Texture (Prema-wound Skin Appearance) Scarring Assessed -Moisture (Prema-wound Skin Appearance) No Abnormality Assessed Assessed -Color (Prema-wound Skin Appearance) Hemosiderin Assessed Assessed Staining -Temperature (Prema-wound Skin No Abnormality No Abnormality No Abnormality Appearance) (Pt Warm) (Pt Warm) (Pt Warm) -Tenderness on Palpation (Prema-wound Yes Yes No Skin Appearance) -Ulcer Cleansing Soap and Water Soap and Water Soap and Water -Foul Odor after Cleansing No No -Anesthetic Used 4% Lidocaine 4% Lidocaine 5% Lidocaine Solution Solution Gel Left Calf (cm) 26.9 26.9 Left Ankle (cm) 19.7 19.7 10/19/21 10:12 Wound Center Nurse 1 #1 L medial ankle -Combined with other wound No -Current Size (cm) - Length 1 -Current Size (cm) - Width 1.1 -Current Size (cm) - Depth 0.2 -Total Square Cm 1.1 -Photo Taken No -Epithelialization Small 1-33% -Tunneling No -Undermining/Tunneling No -Circular Undermining Yes -Exudate Amt Medium -Exudate Type Serosanguineous -Wound Margin Distinct, Outline Attached -Granulation Amt None Present (0 %) -Granulation Quality N/A -Slough/Fibrin Yes -Necrosis Amt Small (1-33%) -Necrotic Tissue Type Adherent Slough -Structure Exposed N/A -Texture (Prema-wound Skin Appearance) No Abnormality, Assessed -Moisture (Prema-wound Skin Appearance) No Abnormality, Assessed -Color (Prema-wound Skin Appearance) No Abnormality, Assessed -Temperature (Prema-wound Skin No Abnormality Appearance) (Pt Warm) -Tenderness on Palpation (Prema-wound No Skin Appearance) -Ulcer Cleansing Rinsed/ Irrigated with Saline -Foul Odor after Cleansing No -Anesthetic Used 4% Lidocaine Solution Left Calf (cm) Left Ankle (cm) WC - Nurse 2 - General Ulcer CM Notes Start: 09/28/21 09:38 Freq: Status: Active Protocol: Activity Type Activity Date Activity User E-Sign Co-Sign Detail Recorded Client Recorded Date Recorded By Document 09/28/21 10:03 PL [id number] 09/28/21 10:06 PL Document 10/05/21 16:06 PL [id number] 10/06/21 16:09 PL Document 10/12/21 11:06 PL [id number] 10/12/21 11:09 PL Document 10/19/21 13:31 PL [id number] 10/19/21 13:32 PL 09/28/21 10/05/21 10/12/21 10:03 16:06 11:06 Wound Center Nurse 2 #1 L medial ankle -Time 09:48 10:20 09:53 -Correct Patient Yes Yes Yes -Correct Side, Site, Position Yes Yes Yes -Correct Procedure Yes Yes Yes -Procedure Performed Yes Yes Yes -Type of Procedure Debridement Debridement Debridement -Clinical Debridement Subcutaneous Subcutaneous Subcutaneous -Tissue Removed Subcutaneous Subcutaneous Subcutaneous -Post Debridement (cm) - Length 1.1 2.0 1.1 -Post Debridement (cm) - Width 1.9 1.1 1.8 -Post Debridement (cm) - Depth 0.2 0.2 0.2 -Total Square (Post) (cm) 2.09 2.20 1.98 -Area of Debridement (cm) - Length 1.1 2.0 1.1 -Area of Debridement (cm) - Width 1.9 1.1 1.8 -Total Square (Area) (cm) 2.09 2.20 1.98 -Tunneling No No No -Undermining/Tunneling No No No -Circular Undermining No No No -Wound/Ulcer Outcome Not Healed Not Healed Not Healed -Ulcer Cleansing Rinsed/ Rinsed/ Rinsed/ Irrigated with Irrigated with Irrigated with Saline Saline Saline -Foul Odor after Cleansing No No No -Bioengineered Tissue Yes Yes Yes -Type of Bioengineered Tissue Epifix Epifix 18mm Epifix 18mm Disc Disc -Expiration Date 05/25/26 06/25/26 06/25/26 -Product Lot Number [id number] -Percent Used 100 100 -Lot number of Saline Used [id number] -Bleeding Controlled with Pressure Pressure Pressure -Treatment Response Procedure Procedure Procedure Tolerated Well Tolerated Well Tolerated Well -Debridement - Subq, 1st 20sq cm No No No -Apply Skin Sub - 1st 25 sq cm - Legs 1 1 1 -Epifix (per sq cm) 4 -Epifix 18mm Disc 3 3 Pain Scale: 0-10 Numeric Is Patient Pain Free? Yes Yes Yes 10/19/21 13:31 Wound Center Nurse 2 #1 L medial ankle -Time 09:47 -Correct Patient Yes -Correct Side, Site, Position Yes -Correct Procedure Yes -Procedure Performed Yes -Type of Procedure Debridement -Clinical Debridement Subcutaneous -Tissue Removed Subcutaneous -Post Debridement (cm) - Length 1.1 -Post Debridement (cm) - Width 1.8 -Post Debridement (cm) - Depth 0.2 -Total Square (Post) (cm) 1.98 -Area of Debridement (cm) - Length 1.1 -Area of Debridement (cm) - Width 1.8 -Total Square (Area) (cm) 1.98 -Tunneling No -Undermining/Tunneling No -Circular Undermining No -Wound/Ulcer Outcome Not Healed -Ulcer Cleansing Rinsed/ Irrigated with Saline -Foul Odor after Cleansing No -Bioengineered Tissue No -Type of Bioengineered Tissue -Expiration Date -Product Lot Number -Percent Used -Lot number of Saline Used -Bleeding Controlled with Pressure -Treatment Response Procedure Tolerated Well -Debridement - Subq, 1st 20sq cm Yes -Apply Skin Sub - 1st 25 sq cm - Legs -Epifix (per sq cm) -Epifix 18mm Disc Pain Scale: 0-10 Numeric Is Patient Pain Free? Yes WC - Nurse 3 - General Ulcer D/C NN Start: 09/28/21 09:38 Freq: Status: Active Protocol: Activity Type Activity Date Activity User E-Sign Co-Sign Detail Recorded Client Recorded Date Recorded By Document 09/28/21 10:03 DL [id number] 09/28/21 10:04 DL Document 10/05/21 16:06 PL [id number] 10/06/21 16:09 PL Edit Result 10/05/21 16:06 PL (1) [id number] 10/08/21 08:46 PL Document 10/12/21 10:19 JF [id number] 10/12/21 10:20 JF Document 10/19/21 10:12 AK [id number] 10/19/21 10:13 AK (1) Left - Multi-Layered Wrap Application => Unna Boot - Left ( => $) 09/28/21 10/05/21 10/12/21 10:03 16:06 10:19 Wound Care Nurse 3 #1 L medial ankle -Ulcer Cleansing Rinsed/ Irrigated with Saline -Foul Odor after Cleansing No -Negative Pressure Wound Therapy -Primary Dressing Applied -Other Dressing Epifix -Primary Dressing Covered/Secured with Dry Gauze & Dry Gauze & Roll Gauze, Roll Gauze, Secured with Secured with Tape Tape -Promogran Anna Marie Matter Left -Lotion applied to leg before compression wrap -Multi-Layered Wrap Application Unna Boot - Unna Boot - Left ($) Left ($) -Tubular Bandage Double Layer -Size of Tubigrip Used Size D -Size D ($) 2 -Other Treatment Response Procedure Tolerated Well Vital Signs Temperature (97.8 F-99.1 F) Temperature Source Pulse Rate (60-100) Pulse Location Blood Pressure (90/60-120/80) Blood Pressure Mean (mm Hg) Source Pain Scale: 0-10 Numeric Is Patient Pain Free? Yes Yes Yes WC - Visit Discharge Discharge Condition Stable Stable Stable Ambulatory Status Ambulatory Ambulatory Ambulatory Transportation Private Auto Private Auto Private Auto Medication Reconcilliation completed & Yes provided to patient/care provider Clinical Summary of Care Provided Yes 10/19/21 10:12 Wound Care Nurse 3 #1 L medial ankle -Ulcer Cleansing Rinsed/ Irrigated with Saline -Foul Odor after Cleansing No -Negative Pressure Wound Therapy N/A -Primary Dressing Applied Promogran Anna Marie Matter -Other Dressing -Primary Dressing Covered/Secured with Dry Gauze & Roll Gauze, Secured with Tape -Promogran Anna Marie Matter 1 Left -Lotion applied to leg before No compression wrap -Multi-Layered Wrap Application -Tubular Bandage -Size of Tubigrip Used -Size D ($) -Other own tubi Treatment Response Vital Signs Temperature (97.8 F-99.1 F) 96.9 F L Temperature Source Temporal Pulse Rate (60-100) 62 Pulse Location Monitor Blood Pressure (90/60-120/80) 142/69 H Blood Pressure Mean (mm Hg) 93 Source Monitor Pain Scale: 0-10 Numeric Is Patient Pain Free? Yes WC - Visit Discharge Discharge Condition Stable Ambulatory Status Ambulatory Transportation Private Auto Medication Reconcilliation completed & Yes provided to patient/care provider Clinical Summary of Care Provided Yes Assessment/Plan Assessment/Plan (1) Venous stasis ulcer of 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: CODE(S): I83.023 - Varicose veins of left lower extremity with ulcer of ankle; L97.322 - Non-pressure chronic ulcer of 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 QUALIFIERS: Varicose vein presence: with varicose veins Qualified Code(s): I83.023 - Varicose veins of left lower extremity with ulcer of ankle; L97.322 - Non-pressure chronic ulcer of 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 (2) Tobacco use: CODE(S): Z72.0 - Tobacco use (3) Stage III chronic kidney disease: CODE(S): N18.30 - Chronic kidney disease, stage 3 unspecified QUALIFIERS: Chronic kidney disease stage 3 subtype: stage 3b (GFR 30-44) Qualified Code(s): N18.32 - Chronic kidney disease, stage 3b (4) History of fracture of left ankle: CODE(S): Z87.81 - Personal history of (healed) traumatic fracture PLAN: Debridement performed today in clinic as annotated above. Given the duration of the wound and failure of the wound to respond to standard wound care, we applied for advanced skin substitutes (EpiFix) and were approved. The patient has received 6 applications of EpiFix thus far. EpiFix will not be applied today. Wound care will be changed to slightly moistened Anna Marie today. This was applied in clinic. Double Tubigrip's applied to the left lower extremity. At home wound-care instructions: Perform daily dressing changes with slightly moistened Anna Marie. Change more frequently as needed due to contamination. Wash wound thoroughly with antibacterial soap and water prior to each dressing change. Compression: Double Tubigrip to left lower extremity, to be worn daily. Off-loading: Avoid prolonged standing and/or dangling of legs. When seated, feet should be elevated at chest level. Frequent ambulation is encouraged. Diet: Patient encouraged to increase protein intake while taking caution to avoid high carbohydrate and/or sugar intake. Smoking: The risks of smoking and benefits of smoking cessation have been discussed with the patient today. The patient has been encouraged to quit smoking. If smoking cessation aids are desired, the patient should contact their primary care provider to discuss appropriate options. Labs/cultures/imaging: Continue doxycycline until completed. Due to the presence of mild arterial disease at the left ankle level (site of wound) he will be referred to a vascular specialist for consultation. An x-ray of the left ankle was ordered today. Follow-up: Return to clinic in 1 week for re-evaluation. Return sooner or report to the emergency room should symptoms worsen, or new symptoms arise. Note: [employer] speech recognition trust operations assistant software was used to create portions of this document. Sound-alike and misspelled words, as well as other trust operations assistant errors may be contained in the documentation.
== END 2021-10-22 23:59 ==
LOC: WC 09:30
PROVIDERS: PCP Internal Medicine; Referring Provider Nurse Practitioner Family; Visit Provider Nurse Practitioner Family
DX: I83.023 Varicose veins of left lower extremity with ulcer of ankle (principal); Z94.4 Liver transplant status; L97.322 Non-pressure chronic ulcer of 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; N18.32 Chronic kidney disease, stage 3b; I87.2 Venous insufficiency (chronic) (peripheral); Z72.0 Tobacco use; Z87.81 Personal history of (healed) traumatic fracture
CPT/HCPCS: 11042; 15271; 29580; 73610; 87070; 87075; 87077; 87186; 87205; 93923; 93970; Q4186

== ENCOUNTER 2021-11-16 09:30 | Outpatient (RCR) | payer MEDICARE, SELFPAY ==
[2021-10-23 00:18] VITALS: BP 142/69; PULSE 62; RESP 18; TEMP 36.1; BMI 21.7
[2021-10-26 09:33] VITALS: BP 136/60; PULSE 64; RESP 18; TEMP 35.8; BMI 21.7
--- NOTE | 2021-10-26 10:00 | PN.PCM_ITS ---
History of Present Illness Date of Service: 10/26/21 Chief Complaint: left medial ankle ulcer History of Wound: Viral is a pleasant 81-year-old male who presents to the wound healing center for an initial evaluation of his left medial ankle ulcer. He has a past medical history significant for liver transplant (in 1998), thrombocytopenia, stage III CKD, tobacco abuse, and left ankle fracture (in 1959). He states that following his ankle fracture in 1959, a screw was placed in his left ankle. The left ankle screw subsequently became infected and was removed. Since that time, he has had frequent occurrence of left ankle ulcers. These ulcers have occurred at various sites within the medial left ankle region. He has previously been seen by [facility] wound care for his left ankle ulcers. He states that this particular left medial ankle ulcer onset approximately 2 mo nths ago. He has been using Anasept ointment daily to his medial left ankle ulcer (which he had previously received from [facility] wound center). He is washing his ankle ulcer with antibacterial soap and water. He does not use compression. The patient denies fever, chills, general malaise, or poor appetite. The patient has not had increased redness, swelling, or purulent/malodorous drainage from affected area. He has not had any recent wound cultures. He had lab work in April 2021, which was reviewed today, and was significant for chronic kidney disease (creatinine 1.70, estimated GFR 39), and low platelets (130). He reports that at some point he did undergo vascular studies of his lower extremities at the [facility], but does not recall when these were completed. Progress of Wound: Wound is stable in size and appearance, again unchanged. Rash of left lower extremity is improved. Large amounts of dryness and stasis d ermatitis of the distal left leg and ankle. Wound culture from 10/12/2021 was positive for 1+ Staphylococcus pseudointermedius and growth of corynebacterium pseudodiphtheritic. Patient is finishing his 10-day course of doxycycline. His ankle x-ray from 10/19/2021 was unremarkable aside from postsurgical changes including fusion of the ankle mortise and fusion of the tibia to the fibula. The patient denies fever, chills, general malaise, or poor appetite. The patient has not had increased redness, swelling, or purulent/malodorous drainage from affected area. Objective Data Objective Data Vital Signs: Vital Signs Temp Pulse Resp BP 96.5 F L 64 18 136/60 H 10/26/21 09:33 10/26/21 09:33 10/26/21 09:33 10/26/21 09:33 Oxygen Delivery Method Room Air Weight: 135 lb Body Mass Index (BMI) 21.7 Charges/Coding Procedures Integumentary [id number]: [id number] Lary subq tissue 20 sq cm/< Physical Exam Const alert, no apparent distress and healthy appearing General Appearance: cooperative, comfortable and well kempt HEENT Head and Scalp: normocephalic and atraumatic Eyes EOMs intact bilaterally Neck supple Resp normal respiratory effort, normal air movement and no use of accessory muscles Extremity normal capillary refill, no joint enlargement and no calf tenderness General Extremity: Negative for edema Peripheral Pulses: Yes dorsalis pedis pulses present left 1+ Skin General Skin Exam: venous stasis Wounds: wounds noted No malodorous Wound Narrative: Medial left ankle ulcer with subcutaneous layer exposed. Moderate amount of devitalized tissue present. No tunneling, undermining, or probing to bone. No periulcer erythema or warmth. No significant tenderness to palpation. No purulent/malodorous drainage. Erythematous rash of left boss/calf area has resolved. No significant warmth to touch. Dry, scaling skin of the distal left leg and ankle with stasis dermatitis. Neuro moves all extremities and no focal motor deficits Psych mental status grossly normal, cooperative and affect normal Debridement Note Debridement Note Wound debrided: Medial left ankle Laterality: Left Type of Debridement: Excisional debridement Anesthesia Used: 4% Lidocaine Solution Depth: in the subcutaneous layer Percentage of wound debrided: 100 Instrument Used: 3mm curette Tissue Removed: Slough and devitalized tissue Severity: Fat Layer Exposed Amount of bleeding with debridement: Mild Bleeding Controlled with: Pressure Patient tolerated procedure: Patient tolerated procedure well Post-Debridement Measurements and Additional Note: Post-Debridement Measurements/Treatment WC - Nurse 1 - General Ulcer Assessment Start: 10/26/21 09:33 Freq: Status: Active Protocol: BYRON Activity Type Activity Date Activity User E-Sign Co-Sign Detail Recorded Client Recorded Date Recorded By Document 10/26/21 09:33 [facility] [id number] 10/26/21 09:38 [facility] 10/26/21 09:33 - Today's Visit Information Type of service Follow-up Visit (Physician/[facility] ) Arrival Mode Ambulatory Transfer Assistance None Patient Identification Verified (Name & Yes ) Patient Requires Transmission-Based No Precautions Height and Weight Body Mass Index (BMI) 21.7 BMI Classification Normal Vital Signs Temperature (97.8 F-99.1 F) 96.5 F L Temperature Source Temporal Pulse Rate (60-100) 64 Pulse Location Monitor Respiratory Rate (12-18) 18 Respiratory rate source Observation Oxygen Delivery Method Room Air Blood Pressure (90/60-120/80) 136/60 H Blood Pressure Mean (mm Hg) 85 Source Monitor Position Sitting Blood Pressure Location Left Arm History Since Last Visit- (Skip if this is Patient's initial visit) Have you changed medications since your No last visit? Any new allergies or adverse reactions No Had a fall/change in ADL's that may No increase risk of falls Signs or symptoms of abuse and/or No neglect since last visit Have you been in the hospital since your No last visit? Has dressing in place as prescribed Yes Has compression in place as prescribed N/A Has offloadiing in place as prescribed N/A Experienced any changes in pain level or Yes management Left Footwear Regular Shoe Right Footwear Regular Shoe Pain Scale: 0-10 Numeric Is Patient Pain Free? Yes - Nurse 1 - General Ulcer Measurement Start: 10/26/21 09:33 Freq: Status: Active Protocol: Activity Type Activity Date Activity User E-Sign Co-Sign Detail Recorded Client Recorded Date Recorded By Document 10/26/21 09:33 [facility] [id number] 10/26/21 09:38 [facility] 10/26/21 09:33 Wound Center Nurse 1 #1 L medial ankle -Combined with other wound No -Current Size (cm) - Length 1.1 -Current Size (cm) - Width 1.5 -Current Size (cm) - Depth 0.3 -Total Square Cm 1.65 -Photo Taken No -Epithelialization None Present -Tunneling No -Undermining/Tunneling No -Circular Undermining No -Change in Wound Grade/Stage No -Exudate Amt Small -Exudate Type Serosanguineous -Wound Margin Distinct, Outline Attached -Granulation Amt None Present (0 %) -Granulation Quality N/A -Slough/Fibrin Yes -Necrosis Amt Large (67-100%) -Necrotic Tissue Type Adherent Slough -Structure Exposed N/A -Texture (Prema-wound Skin Appearance) No Abnormality, Assessed -Moisture (Prema-wound Skin Appearance) No Abnormality, Assessed -Color (Prema-wound Skin Appearance) No Abnormality, Assessed -Temperature (Prema-wound Skin No Abnormality Appearance) (Pt Warm) -Tenderness on Palpation (Prema-wound No Skin Appearance) -Ulcer Cleansing Rinsed/ Irrigated with Saline -Foul Odor after Cleansing No -Anesthetic Used 5% Lidocaine Gel Left Calf (cm) 27 Left Ankle (cm) 21 - Nurse 3 - General Ulcer D/C NN Start: 10/26/21 09:33 Freq: Status: Active Protocol: Activity Type Activity Date Activity User E-Sign Co-Sign Detail Recorded Client Recorded Date Recorded By Document 10/26/21 09:55 [facility] [id number] 10/26/21 09:57 [facility] 10/26/21 09:55 Wound Care Nurse 3 #1 L medial ankle -Ulcer Cleansing Rinsed/ Irrigated with Saline -Foul Odor after Cleansing No -Primary Dressing Applied Promogran Anna Marie Matter -Primary Dressing Covered/Secured with Dry Gauze & Roll Gauze, Other -Other Covering drsg per ak carpenters helper -Promogran Anna Marie Matter 1 Left -Tubular Bandage Double Layer -Size of Tubigrip Used Size D -Size D ($) 1 Treatment Response Procedure Tolerated Well Pain Scale: 0-10 Numeric Is Patient Pain Free? 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 Given the duration of the wound and failure of the wound to respond to standard wound care, we applied for advanced skin substitutes (EpiFix) and were approved. The patient has received 6 applications of EpiFix thus far. EpiFix will not be applied today. We will continue slightly moistened Anna Marie for another week. This was applied in clinic. Double Tubigrip's applied to the left lower extremity. Triamcinolone 0.5% cream prescribed, to be used once daily to the affected dry, scaly areas of the distal left leg and ankle. This is not to be applied in the wound. At home wound-care instructions: Perform daily dressing changes with slightly moistened Anna Marie. Change more frequently as needed due to contamination. Wash wound thoroughly with antibacterial soap and water prior to each dressing change. Apply triamcinolone 0.5% cream to the affected areas of the distal left leg and ankle, avoiding the wound itself. Wash hands thoroughly after use of triamcinolone cream. Compression: Double Tubigrip to left lower extremity, to be worn daily. Off-loading: Avoid prolonged standing and/or dangling of legs. When seated, feet should be elevated at chest level. Frequent ambulation is encouraged. Diet: Patient encouraged to increase protein intake while taking caution to avoid high carbohydrate and/or sugar intake. Smoking: The risks of smoking and benefits of smoking cessation have been discussed with the patient today. The patient has been encouraged to quit smoking. If smoking cessation aids are desired, the patient should contact their primary care provider to discuss appropriate options. Labs/cultures/imaging: Continue doxycycline until completed. Due to the presen ce of mild arterial disease at the left ankle level (site of wound) he was referred to a vascular specialist for consultation. He reports he missed their call, and has not yet called back to schedule. He was encouraged to return their call to make an appointment. X-ray of the left ankle was unremarkable aside from postoperative changes of fusion of the ankle mortise and fusion of the tibia to the fibula. Follow-up: Return to clinic in 1 week for re-evaluation. Return sooner or report to the emergency room should symptoms worsen, or new symptoms arise. Note: [employer] speech recognition audio production instructor software was used to create portions of this document. Sound-alike and misspelled words, as well as other audio production instructor errors may be contained in the documentation.
[2021-11-02 09:41] VITALS: BP 142/62; PULSE 61; RESP 18; TEMP 36.6; BMI 21.7
[2021-11-02 11:45] LABS: Erythrocyte Sedimentation Rate 12 mm/hr (0-20)
[2021-11-02 11:57] LABS: Absolute Lymphocyte Count 1.91 X10^3/uL (0.83-4.51); Absolute Neutrophil Count 4.1 X10^3/uL (2.0-7.7); Basophil# 0.04 X10^3/uL; Basophil% 0.5 % (0-1); Eosinophil# 0.31 X10^3/uL; Eosinophils% 4.2 % (0-5); Hematocrit 44.1 % (40-54); Hemoglobin 14.7 g/dL (13.0-16.5); Lymphocyte # 1.91 X10^3/ul (0.83-4.51); Lymphocyte % 26.1 % (19-41); Mean Corp Hgb Conc 33.3 g/dL (32-36); Mean Corpuscular Volume 98.9 fL (80-94); Mean Platelet Vol. 13.8 fl (6.2-12.0); Monocyte# 0.98 X10^3/uL; Monocyte% 13.4 % (0-10); NRBC Flagged by Analyzer 0 % (0-5); Neutrophil # 4.06 X10^3/uL (2.7-7.7); Neutrophil % 55.5 % (47-70); Platelet Count 106 K/mm3 (150-450); RBC Distribution Width CV 13.9 % (11.6-14.6); RBC Distribution Width SD 51.4 fl (35.1-43.9); Red Blood Count 4.46 M/mm3 (4.6-6.2); White Blood Count 7.3 K/mm3 (4.4-11.0)
[2021-11-02 12:15] LABS: ALB/GLOB Ratio 0.8 RATIO (0.9-2.4); AST(SGOT) 14 U/L (15-37); Alanine Aminotransfer ALT/SGPT 14 U/L (16-61); Albumin, Serum 3.4 g/dL (3.2-5.0); Alkaline Phosphatase 109 U/L (45-117); Anion Gap 1 (5-15); BUN 25 mg/dL (7-18); BUN/Creat Ratio 15.8 RATIO (10-20); CRP 6.67 mg/L (0.0-3.0); Calcium,Total 8.8 mg/dL (8.5-10.1); Chloride 109 mmol/L (98-107); Creatinine, Serum 1.58 mg/dL (0.70-1.30); EST Glomerular Filtration Rate 45 mL/min (>60); Est Glom Filt Rate - Afr Amer 54 mL/min (>60); Estimated Creatinine Clearance 31.76 ml/min; Glucose 108 mg/dL (74-106); Potassium 3.9 mmol/L (3.5-5.1); Prealbumin 13.7 mg/dL (20.0-40.0); Protein, Total 7.4 g/dL (6.4-8.2); Sodium Level 137 mmol/L (136-145)
--- NOTE | 2021-11-02 12:44 | PCM.WC.PN ---
History of Present Illness Date of Service: 11/02/21 Chief Complaint: left medial ankle ulcer History of Wound: Viral is a pleasant 81-year-old male who presents to the wound healing center for an initial evaluation of his left medial ankle ulcer. He has a past medical history significant for liver transplant (in 1998), thrombocytopenia, stage III CKD, tobacco abuse, and left ankle fracture (in 1959). He states that following his ankle fracture in 1959, a screw was placed in his left ankle. The left ankle screw subsequently became infected and was removed. Since that time, he has had frequent occurrence of left ankle ulcers. These ulcers have occurred at various sites within the medial left ankle region. He has previously been seen by [facility] wound care for his left ankle ulcers. He states that this particular left medial ankle ulcer onset approximately 2 months ago. He has been using Anasept ointment daily to his medial left ankle ulcer (which he had previously received from [facility] wound center). He is washing his ankle ulcer with antibacterial soap and water. He does not use compression. The patient denies fever, chills, general malaise, or poor appetite. The patient has not had increased redness, swelling, or purulent/malodorous drainage from affected area. He has not had any recent wound cultures. He had lab work in April 2021, which was reviewed today, and was significant for chronic kidney disease (creatinine 1.70, estimated GFR 39), and low platelets (130). He reports that at some point he did undergo vascular studies of his lower extremities at the [facility], but does not recall when these were completed. Progress of Wound: Wound is stable in size and appearance, again unchanged. Tolerating Anna Marie dressings without complications. Rash of left lower extremity is resolved. Stasis dermatitis of the distal left leg and ankle. Wound culture from 10/12/2021 was positive for 1+ Staphylococcus pseudointermedius and growth of corynebacterium pseudodiphtheritic. Patient finished 10-day course of doxycycline. His ankle x-ray from 10/19/2021 was unremarkable aside from postsurgical changes including fusion of the ankle mortise and fusion of the tibia to the fibula. The patient denies fever, chills, general malaise, or poor appetite. The patient has not had increased redness, swelling, or purulent/malodorous drainage from affected area. Objective Data Objective Data Vital Signs: Vital Signs Temp Pulse Resp BP 98 F 61 18 142/62 H 11/02/21 09:41 11/02/21 09:41 11/02/21 09:41 11/02/21 09:41 Oxygen Delivery Method Room Air Weight: 135 lb Body Mass Index (BMI) 21.7 Lab / Micro Data Result Diagrams: 11/02/21 11:23 11/02/21 11:23 Labs: Laboratory Results - last 24 hr 11/02/21 11:23: Sodium 137, Potassium 3.9, Chloride 109 H, Carbon Dioxide 27.0, Anion Gap 1 L, BUN 25 H, Creatinine 1.58 H, Estim Creat Clear Calc 31.76, Est GFR (MDRD) Af Amer 54 L, Est GFR (MDRD) Non-Af 45 L, BUN/Creatinine Ratio 15.8, Glucose 108 H, Calcium 8.8, Total Bilirubin 0.50, AST 14 L, ALT 14 L, Alkaline Phosphatase 109, C-React Prot Ext Range 6.67 H, Total Protein 7.4, Albumin 3.4, Globulin 4.0, Albumin/Globulin Ratio 0.8 L, Prealbumin 13.7 L 11/02/21 11:23: WBC 7.3, RBC 4.46 L, Hgb 14.7, Hct 44.1, MCV 98.9 H, MCH 33.0 H, MCHC 33.3, RDW Std Deviation 51.4 H, RDW Coeff of Merly 13.9, Plt Count 106 L, MPV 13.8 H, Immature Gran % (Auto) 0.300, Neut % (Auto) 55.5, Lymph % (Auto) 26.1, Sargent % (Auto) 13.4 H, Eos % (Auto) 4.2, Baso % (Auto) 0.5, Absolute Neuts (auto) 4.1, Absolute Lymphs (auto) 1.91, Nucleated RBC % 0, ESR 12 Charges/Coding Procedures Integumentary [id number]: [id number] Lary subq tissue 20 sq cm/< Physical Exam Const alert, no apparent distress and healthy appearing General Appearance: cooperative, comfortable and well kempt HEENT Head and Scalp: normocephalic and atraumatic Eyes EOMs intact bilaterally Neck supple Resp normal respiratory effort, normal air movement and no use of accessory muscles Extremity normal capillary refill, no joint enlargement and no calf tenderness General Extremity: Negative for edema Peripheral Pulses: Yes dorsalis pedis pulses present left 1+ Skin General Skin Exam: venous stasis Wounds: wounds noted No malodorous Wound Narrative: Medial left ankle ulcer with subcutaneous layer exposed. Moderate amount of devitalized tissue present. No tunneling, undermining, or probing to bone. No periulcer erythema or warmth. No significant tenderness to palpation. No purulent/malodorous drainage. Erythematous rash of left boss/calf area has resolved. No significant warmth to touch. Dry, scaling skin of the distal left leg has improved. Neuro moves all extremities and no focal motor deficits Psych mental status grossly normal, cooperative and affect normal Debridement Note Debridement Note Wound debrided: Medial left ankle Laterality: Left Type of Debridement: Excisional debridement Anesthesia Used: 4% Lidocaine Solution Depth: in the subcutaneous layer Percentage of wound debrided: 100 Instrument Used: 3mm curette Tissue Removed: Slough and devitalized tissue Severity: Fat Layer Exposed Amount of bleeding with debridement: Mild Bleeding Controlled with: Pressure Patient tolerated procedure: Patient tolerated procedure well Post-Debridement Measurements and Additional Note: Post-Debridement Measurements/Treatment - Nurse 1 - General Ulcer Assessment Start: 10/26/21 09:33 Freq: Status: Active Protocol: BYRON Activity Type Activity Date Activity User E-Sign Co-Sign Detail Recorded Client Recorded Date Recorded By Document 10/26/21 09:33 [facility] [id number] 10/26/21 09:38 [facility] Document 11/02/21 09:41 MS [id number] 11/02/21 09:54 MS 10/26/21 11/02/21 09:33 09:41 - Today's Visit Information Type of service Follow-up Visit Follow-up Visit (Physician/DEPOSITION REPORTER (Physician/DEPOSITION REPORTER ) ) Arrival Mode Ambulatory Ambulatory Transfer Assistance None Patient Identification Verified (Name & Yes Yes ) Patient Requires Transmission-Based No Precautions Height and Weight Body Mass Index (BMI) 21.7 21.7 BMI Classification Normal Normal Vital Signs Temperature (97.8 F-99.1 F) 96.5 F L 98 F Temperature Source Temporal Temporal Pulse Rate (60-100) 64 61 Pulse Location Monitor Monitor Respiratory Rate (12-18) 18 18 Respiratory rate source Observation Observation Oxygen Delivery Method Room Air Room Air Blood Pressure (90/60-120/80) 136/60 H 142/62 H Blood Pressure Mean (mm Hg) 85 88 Source Monitor Monitor Position Sitting Sitting Blood Pressure Location Left Arm Left Arm History Since Last Visit- (Skip if this is Patient's initial visit) Have you changed medications since your No last visit? Any new allergies or adverse reactions No Had a fall/change in ADL's that may No increase risk of falls Signs or symptoms of abuse and/or No neglect since last visit Have you been in the hospital since your No Yes last visit? Has dressing in place as prescribed Yes Yes Has compression in place as prescribed N/A Yes Has offloadiing in place as prescribed N/A N/A Experienced any changes in pain level or Yes No management Left Footwear Regular Shoe Regular Shoe Right Footwear Regular Shoe Regular Shoe Pain Scale: 0-10 Numeric Is Patient Pain Free? Yes Yes WC - Nurse 1 - General Ulcer Measurement Start: 10/26/21 09:33 Freq: Status: Active Protocol: Activity Type Activity Date Activity User E-Sign Co-Sign Detail Recorded Client Recorded Date Recorded By Document 10/26/21 09:33 [facility] [id number] 10/26/21 09:38 [facility] Document 11/02/21 09:41 MS [id number] 11/02/21 09:54 MS 10/26/21 11/02/21 09:33 09:41 Wound Center Nurse 1 #1 L medial ankle -Combined with other wound No -Current Size (cm) - Length 1.1 1.3 -Current Size (cm) - Width 1.5 1.9 -Current Size (cm) - Depth 0.3 0.2 -Total Square Cm 1.65 2.47 -Photo Taken No -Epithelialization None Present -Tunneling No -Undermining/Tunneling No -Circular Undermining No -Change in Wound Grade/Stage No -Exudate Amt Small Small -Exudate Type Serosanguineous Serosanguineous -Wound Margin Distinct, Thickened & Outline Rolled Under Attached -Granulation Amt None Present (0 Large (67-100%) %) -Granulation Quality N/A Pale,[place] -Slough/Fibrin Yes -Necrosis Amt Large (67-100%) Small (1-33%) -Necrotic Tissue Type Adherent Slough Adherent Slough -Structure Exposed N/A -Texture (Prema-wound Skin Appearance) No Abnormality, Assessed,Callus Assessed -Moisture (Prema-wound Skin Appearance) No Abnormality, Assessed Assessed -Color (Prema-wound Skin Appearance) No Abnormality, Assessed Assessed -Temperature (Prema-wound Skin No Abnormality No Abnormality Appearance) (Pt Warm) (Pt Warm) -Tenderness on Palpation (Prema-wound No No Skin Appearance) -Ulcer Cleansing Rinsed/ Soap and Water Irrigated with Saline -Foul Odor after Cleansing No No -Anesthetic Used 5% Lidocaine 4% Lidocaine Gel Solution Left Calf (cm) 27 27 Left Ankle (cm) 21 21 WC - Nurse 2 - General Ulcer CM Notes Start: 10/26/21 09:33 Freq: Status: Active Protocol: Activity Type Activity Date Activity User E-Sign Co-Sign Detail Recorded Client Recorded Date Recorded By Document 10/26/21 10:54 PL Desktop 10/26/21 10:55 PL 10/26/21 10:54 Wound Center Nurse 2 #1 L medial ankle -Time 09:40 -Correct Patient Yes -Correct Side, Site, Position Yes -Correct Procedure Yes -Procedure Performed Yes -Type of Procedure Debridement -Clinical Debridement Subcutaneous -Tissue Removed Subcutaneous -Post Debridement (cm) - Length 1.1 -Post Debridement (cm) - Width 1.8 -Post Debridement (cm) - Depth 0.2 -Total Square (Post) (cm) 1.98 -Area of Debridement (cm) - Length 1.1 -Area of Debridement (cm) - Width 1.8 -Total Square (Area) (cm) 1.98 -Tunneling No -Undermining/Tunneling No -Circular Undermining No -Wound/Ulcer Outcome Not Healed -Ulcer Cleansing Rinsed/ Irrigated with Saline -Foul Odor after Cleansing No -Bioengineered Tissue No -Bleeding Controlled with Pressure -Treatment Response Procedure Tolerated Well -Debridement - Subq, 1st 20sq cm Yes Pain Scale: 0-10 Numeric Is Patient Pain Free? Yes WC - Nurse 3 - General Ulcer D/C NN Start: 10/26/21 09:33 Freq: Status: Active Protocol: Activity Type Activity Date Activity User E-Sign Co-Sign Detail Recorded Client Recorded Date Recorded By Document 10/26/21 09:55 [facility] [id number] 10/26/21 09:57 [facility] Document 11/02/21 10:44 [place] [id number] 11/02/21 10:45 [place] 10/26/21 11/02/21 09:55 10:44 Wound Care Nurse 3 #1 L medial ankle -Ulcer Cleansing Rinsed/ Rinsed/ Irrigated with Irrigated with Saline Saline -Foul Odor after Cleansing No -Primary Dressing Applied Promogran Promogran Anna Marie Matter Anna Marie Matter -Primary Dressing Covered/Secured with Dry Gauze & Dry Gauze & Roll Gauze, Roll Gauze, Other Secured with Tape -Other Covering drsg per ak inspector fabric -Promogran Anna Marie Matter 1 1 Left -Tubular Bandage Double Layer -Size of Tubigrip Used Size D -Size D ($) 1 Treatment Response Procedure Tolerated Well Pain Scale: 0-10 Numeric Is Patient Pain Free? Yes Yes WC - Visit Discharge Discharge Condition Stable Stable Ambulatory Status Ambulatory Ambulatory Transportation Private Auto Private Auto Medication Reconcilliation completed & Yes provided to patient/care provider Clinical Summary of Care Provided Yes Assessment/Plan Assessment/Plan (1) Venous stasis ulcer of 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: CODE(S): I83.023 - Varicose veins of left lower extremity with ulcer of ankle; L97.322 - Non-pressure chronic ulcer of 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 QUALIFIERS: Varicose vein presence: with varicose veins Qualified Code(s): I83.023 - Varicose veins of left lower extremity with ulcer of ankle; L97.322 - Non-pressure chronic ulcer of 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 (2) Tobacco use: CODE(S): Z72.0 - Tobacco use (3) Stage III chronic kidney disease: CODE(S): N18.30 - Chronic kidney disease, stage 3 unspecified QUALIFIERS: Chronic kidney disease stage 3 subtype: stage 3b (GFR 30-44) Qualified Code(s): N18.32 - Chronic kidney disease, stage 3b (4) History of fracture of left ankle: CODE(S): Z87.81 - Personal history of (healed) traumatic fracture PLAN: Debridement performed today in clinic as annotated above. The patient's wound continues to be unchanged in size. Given the duration of the wound and failure of the wound to respond to standard wound care, we applied for advanced skin substitutes (EpiFix) and were approved. The patient has received 6 applications of EpiFix thus far. EpiFix will not be applied today. We will continue slightly moistened Anna Marie for another 2 weeks. This was applied in clinic. Double Tubigrip's applied to the left lower extremity. At home wound-care instructions: Perform daily dressing changes with slightly moistened Anna Marie. Change more frequently as needed due to contamination. Wash wound thoroughly with antibacterial soap and water prior to each dressing change. Apply triamcinolone 0.5% cream to the affected areas of the distal left leg and ankle, avoiding the wound itself. Wash hands thoroughly after use of triamcinolone cream. Compression: Double Tubigrip to left lower extremity, to be worn daily. Off-loading: Avoid prolonged standing and/or dangling of legs. When seated, feet should be elevated at chest level. Frequent ambulation is encouraged. Diet: Patient encouraged to increase protein intake while taking caution to avoid high carbohydrate and/or sugar intake. Smoking: The risks of smoking and benefits of smoking cessation have again been discussed with the patient today. The patient has been encouraged to quit smoking, or at least drastically reduce his smoking. If smoking cessation aids are desired, the patient should contact their primary care provider to discuss appropriate options. Labs/cultures/imaging: Doxycycline completed. Due to the presence of mild arterial disease at the left ankle level (site of wound) he was referred to a vascular specialist for consultation. He has not called to schedule. X-ray of the left ankle was unremarkable aside from postoperative changes of fusion of the ankle mortise and fusion of the tibia to the fibula. Labs will be ordered today to reassess kidney function and inflammatory markers. MRI may be considered depending on lab results. Follow-up: Return to clinic in 2 weeks for re-evaluation. Return sooner or report to the emergency room should symptoms worsen, or new symptoms arise. Note: [employer] speech recognition assembly instructions writer software was used to create portions of this document. Sound-alike and misspelled words, as well as other assembly instructions writer errors may be contained in the documentation.
[2021-11-16 09:40] VITALS: BP 146/60; PULSE 60; TEMP 36.1; BMI 21.7
--- NOTE | 2021-11-16 15:15 | PCM.WC.PN ---
History of Present Illness Date of Service: 11/16/21 Chief Complaint: left medial ankle ulcer History of Wound: Viral is a pleasant 81-year-old male who presents to the wound healing center for an initial evaluation of his left medial ankle ulcer. He has a past medical history significant for liver transplant (in 1998), thrombocytopenia, stage III CKD, tobacco abuse, and left ankle fracture (in 1959). He states that following his ankle fracture in 1959, a screw was placed in his left ankle. The left ankle screw subsequently became infected and was removed. Since that time, he has had frequent occurrence of left ankle ulcers. These ulcers have occurred at various sites within the medial left ankle region. He has previously been seen by [facility] wound care for his left ankle ulcers. He states that this particular left medial ankle ulcer onset approximately 2 months ago. He has been using Anasept ointment daily to his medial left ankle ulcer (which he had previously received from [facility] wound center). He is washing his ankle ulcer with antibacterial soap and water. He does not use compression. The patient denies fever, chills, general malaise, or poor appetite. The patient has not had increased redness, swelling, or purulent/malodorous drainage from affected area. He has not had any recent wound cultures. He had lab work in April 2021, which was reviewed today, and was significant for chronic kidney disease (creatinine 1.70, estimated GFR 39), and low platelets (130). He reports that at some point he did undergo vascular studies of his lower extremities at the [facility], but does not recall when these were completed. Progress of Wound: Wound is stable in size and appearance, again essentially unchanged. Tolerating Anna Marie dressings without complications. Rash of left lower extremity is resolved. Stasis dermatitis of the distal left leg and ankle. Wound culture from 10/12/2021 was positive for 1+ Staphylococcus pseudointermedius and growth of corynebacterium pseudodiphtheritic. Patient finished 10-day course of doxycycline. His ankle x-ray from 10/19/2021 was unremarkable aside from postsurgical changes including fusion of the ankle mortise and fusion of the tibia to the fibula. The patient denies fever, chills, general malaise, or poor appetite. The patient has not had increased redness, swelling, or purulent/malodorous drainage from affected area. Labs from 11/02/2021 were reviewed, significant for the following: CBCD: RBC 4.46, platelets 106 CMP: BUN 25, creatinine 1.58, estimated GFR 45, glucose 108 CRP: 6.67 Prealbumin: 13.7 ESR: Normal Objective Data Objective Data Vital Signs: Vital Signs Temp Pulse Resp BP 97.0 F L 60 18 146/60 H 11/16/21 09:40 11/16/21 09:40 11/02/21 09:41 11/16/21 09:40 Oxygen Delivery Method Room Air Weight: 135 lb Body Mass Index (BMI) 21.7 Lab / Micro Data Result Diagrams: 11/02/21 11:23 11/02/21 11:23 Charges/Coding Procedures Integumentary 111xxx-113xx: [id number] Lary subq tissue 20 sq cm/< Physical Exam Const alert, no apparent distress and healthy appearing General Appearance: cooperative, comfortable and well kempt Nutritional Appearance: thin HEENT Head and Scalp: normocephalic and atraumatic Eyes EOMs intact bilaterally Neck supple Resp normal respiratory effort, normal air movement and no use of accessory muscles Extremity normal capillary refill, no joint enlargement and no calf tenderness General Extremity: Negative for edema Peripheral Pulses: Yes dorsalis pedis pulses present left 1+ Skin General Skin Exam: venous stasis Wounds: wounds noted No malodorous Wound Narrative: Medial left ankle ulcer with subcutaneous layer exposed. Moderate amount of devitalized tissue present. No tunneling, undermining, or probing to bone. No periulcer erythema or warmth. No significant tenderness to palpation. No purulent/malodorous drainage. Erythematous rash of left boss/calf area has resolved. No significant warmth to touch. Dry, scaling skin of the distal left leg has improved. Neuro moves all extremities and no focal motor deficits Psych mental status grossly normal, cooperative and affect normal Debridement Note Debridement Note Wound debrided: Medial left ankle Laterality: Left Type of Debridement: Excisional debridement Anesthesia Used: 4% Lidocaine Solution Depth: in the subcutaneous layer Percentage of wound debrided: 100 Instrument Used: 3mm curette Tissue Removed: Slough and devitalized tissue Severity: Fat Layer Exposed Amount of bleeding with debridement: Mild Bleeding Controlled with: Pressure Patient tolerated procedure: Patient tolerated procedure well Post-Debridement Measurements and Additional Note: Post-Debridement Measurements/Treatment WC - Nurse 1 - General Ulcer Assessment Start: 10/26/21 09:33 Freq: Status: Active Protocol: BYRON Activity Type Activity Date Activity User E-Sign Co-Sign Detail Recorded Client Recorded Date Recorded By Document 10/26/21 09:33 BM [id number] 10/26/21 09:38 BMF Document 11/02/21 09:41 MT [id number] 11/02/21 09:54 MT Document 11/16/21 09:40 KR [id number] 11/16/21 09:42 KR 10/26/21 11/02/21 11/16/21 09:33 09:41 09:40 WC - Today's Visit Information Type of service Follow-up Visit Follow-up Visit Follow-up Visit (Physician/CORPORATE ACCOUNTANT (Physician/CORPORATE ACCOUNTANT (Physician/CORPORATE ACCOUNTANT ) ) ) Arrival Mode Ambulatory Ambulatory Ambulatory Transfer Assistance None Patient Identification Verified (Name & Yes Yes Yes ) Patient Requires Transmission-Based No Precautions Height and Weight Body Mass Index (BMI) 21.7 21.7 21.7 BMI Classification Normal Normal Normal Vital Signs Temperature (97.8 F-99.1 F) 96.5 F L 98 F 97.0 F L Temperature Source Temporal Temporal Temporal Pulse Rate (60-100) 64 61 60 Pulse Location Monitor Monitor Monitor Respiratory Rate (12-18) 18 18 Respiratory rate source Observation Observation Oxygen Delivery Method Room Air Room Air Blood Pressure (90/60-120/80) 136/60 H 142/62 H 146/60 H Blood Pressure Mean (mm Hg) 85 88 88 Source Monitor Monitor Monitor Position Sitting Sitting Sitting Blood Pressure Location Left Arm Left Arm Right Arm History Since Last Visit- (Skip if this is Patient's initial visit) Have you changed medications since your No No last visit? Any new allergies or adverse reactions No No Had a fall/change in ADL's that may No No increase risk of falls Signs or symptoms of abuse and/or No No neglect since last visit Have you been in the hospital since your No Yes No last visit? Has dressing in place as prescribed Yes Yes Yes Has compression in place as prescribed N/A Yes Yes Has offloadiing in place as prescribed N/A N/A N/A Experienced any changes in pain level or Yes No No management Left Footwear Regular Shoe Regular Shoe Regular Shoe Right Footwear Regular Shoe Regular Shoe Regular Shoe Pain Scale: 0-10 Numeric Is Patient Pain Free? Yes Yes Yes WC - Nurse 1 - General Ulcer Measurement Start: 10/26/21 09:33 Freq: Status: Active Protocol: Activity Type Activity Date Activity User E-Sign Co-Sign Detail Recorded Client Recorded Date Recorded By Document 10/26/21 09:33 BM [id number] 10/26/21 09:38 BMF Document 11/02/21 09:41 MT [id number] 11/02/21 09:54 MT Document 11/16/21 09:40 KR [id number] 11/16/21 09:42 KR 10/26/21 11/02/21 11/16/21 09:33 09:41 09:40 Wound Center Nurse 1 #1 L medial ankle -Combined with other wound No -Current Size (cm) - Length 1.1 1.3 1 -Current Size (cm) - Width 1.5 1.9 1.5 -Current Size (cm) - Depth 0.3 0.2 0.3 -Total Square Cm 1.65 2.47 1.5 -Photo Taken No -Epithelialization None Present -Tunneling No -Undermining/Tunneling No -Circular Undermining No -Change in Wound Grade/Stage No -Exudate Amt Small Small Small -Exudate Type Serosanguineous Serosanguineous Serosanguineous -Wound Margin Distinct, Thickened & Distinct, Outline Rolled Under Outline Attached Attached -Granulation Amt None Present (0 Large (67-100%) Medium (34-66%) %) -Granulation Quality N/A Pale,[place] Red -Slough/Fibrin Yes -Necrosis Amt Large (67-100%) Small (1-33%) Small (1-33%) -Necrotic Tissue Type Adherent Slough Adherent Slough Adherent Slough -Structure Exposed N/A -Texture (Prema-wound Skin Appearance) No Abnormality, Assessed,Callus Assessed, Assessed Scarring -Moisture (Prema-wound Skin Appearance) No Abnormality, Assessed No Abnormality, Assessed Assessed -Color (Prema-wound Skin Appearance) No Abnormality, Assessed No Abnormality, Assessed Assessed -Temperature (Prema-wound Skin No Abnormality No Abnormality No Abnormality Appearance) (Pt Warm) (Pt Warm) (Pt Warm) -Tenderness on Palpation (Prema-wound No No No Skin Appearance) -Ulcer Cleansing Rinsed/ Soap and Water Rinsed/ Irrigated with Irrigated with Saline Saline -Foul Odor after Cleansing No No No -Anesthetic Used 5% Lidocaine 4% Lidocaine 4% Lidocaine Gel Solution Solution,5% Lidocaine Gel Left Calf (cm) 27 27 26 Left Ankle (cm) 21 21 21 WC - Nurse 2 - General Ulcer CM Notes Start: 10/26/21 09:33 Freq: Status: Active Protocol: Activity Type Activity Date Activity User E-Sign Co-Sign Detail Recorded Client Recorded Date Recorded By Document 10/26/21 10:54 PL Desktop 10/26/21 10:55 PL Document 11/02/21 13:33 PL [id number] 11/02/21 13:34 PL Document 11/16/21 13:26 PL [id number] 11/16/21 13:29 PL 10/26/21 11/02/21 11/16/21 10:54 13:33 13:26 Wound Center Nurse 2 #1 L medial ankle -Time 09:40 10:21 10:12 -Correct Patient Yes Yes Yes -Correct Side, Site, Position Yes Yes Yes -Correct Procedure Yes Yes Yes -Procedure Performed Yes Yes Yes -Type of Procedure Debridement Debridement Debridement -Clinical Debridement Subcutaneous Subcutaneous Subcutaneous -Tissue Removed Subcutaneous Subcutaneous Subcutaneous -Post Debridement (cm) - Length 1.1 1.1 1.1 -Post Debridement (cm) - Width 1.8 1.8 1.7 -Post Debridement (cm) - Depth 0.2 0.2 0.2 -Total Square (Post) (cm) 1.98 1.98 1.87 -Area of Debridement (cm) - Length 1.1 1.1 1.1 -Area of Debridement (cm) - Width 1.8 1.8 1.7 -Total Square (Area) (cm) 1.98 1.98 1.87 -Tunneling No No No -Undermining/Tunneling No No No -Circular Undermining No No No -Wound/Ulcer Outcome Not Healed Not Healed Not Healed -Ulcer Cleansing Rinsed/ Rinsed/ Rinsed/ Irrigated with Irrigated with Irrigated with Saline Saline Saline -Foul Odor after Cleansing No No No -Bioengineered Tissue No No No -Bleeding Controlled with Pressure Pressure Pressure -Treatment Response Procedure Procedure Procedure Tolerated Well Tolerated Well Tolerated Well -Debridement - Subq, 1st 20sq cm Yes Yes Yes Pain Scale: 0-10 Numeric Is Patient Pain Free? Yes Yes Yes - Nurse 3 - General Ulcer D/C NN Start: 10/26/21 09:33 Freq: Status: Active Protocol: Activity Type Activity Date Activity User E-Sign Co-Sign Detail Recorded Client Recorded Date Recorded By Document 10/26/21 09:55 [facility] [id number] 10/26/21 09:57 [facility] Document 11/02/21 10:44 [facility] [id number] 11/02/21 10:45 VA Document 11/16/21 10:38 VA [id number] 11/16/21 10:39 VA 10/26/21 11/02/21 11/16/21 09:55 10:44 10:38 Wound Care Nurse 3 #1 L medial ankle -Ulcer Cleansing Rinsed/ Rinsed/ Irrigated with Irrigated with Saline Saline -Foul Odor after Cleansing No No -Negative Pressure Wound Therapy N/A -Primary Dressing Applied Promogran Promogran Anna Marie Matter Anna Marie Matter -Other Dressing collegen powder and AMD -Primary Dressing Covered/Secured with Dry Gauze & Dry Gauze & Dry Gauze & Roll Gauze, Roll Gauze, Roll Gauze, Other Secured with Secured with Tape Tape -Other Covering drsg per co integration aide -Promogran Anna Marie Matter 1 1 Left -Tubular Bandage Double Layer -Size of Tubigrip Used Size D -Size D ($) 1 Treatment Response Procedure Tolerated Well Pain Scale: 0-10 Numeric Is Patient Pain Free? Yes Yes Yes - Visit Discharge Discharge Condition Stable Stable Stable Ambulatory Status Ambulatory Ambulatory Ambulatory Transportation Private Auto Private Auto Medication Reconcilliation completed & Yes Yes provided to patient/care provider Clinical Summary of Care Provided Yes Yes Assessment/Plan Assessment/Plan (1) Venous stasis ulcer of 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: CODE(S): I83.023 - Varicose veins of left lower extremity with ulcer of ankle; L97.322 - Non-pressure chronic ulcer of 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 QUALIFIERS: Varicose vein presence: with varicose veins Qualified Code(s): I83.023 - Varicose veins of left lower extremity with ulcer of ankle; L97.322 - Non-pressure chronic ulcer of 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 (2) Tobacco use: CODE(S): Z72.0 - Tobacco use (3) Stage III chronic kidney disease: CODE(S): N18.30 - Chronic kidney disease, stage 3 unspecified QUALIFIERS: Chronic kidney disease stage 3 subtype: stage 3b (GFR 30-44) Qualified Code(s): N18.32 - Chronic kidney disease, stage 3b (4) History of fracture of left ankle: CODE(S): Z87.81 - Personal history of (healed) traumatic fracture PLAN: Debridement performed today in clinic as annotated above. The patient's wound continues to be overall unchanged in size. Given the duration of the wound and failure of the wound to respond to standard wound care, we applied for advanced skin substitutes (EpiFix) and were approved. The patient has received 6 applications of EpiFix thus far. EpiFix will not be applied today. Due to concern for bioburden, I will have the patient begin PHMB dressing and collagen powder. This was applied in clinic. At home wound-care instructions: Perform daily dressing changes with PHMB dressing and collagen powder. Wash wound thoroughly with antibacterial soap and water prior to each dressing change. Compression: Double Tubigrip to left lower extremity, to be worn daily. Off-loading: Avoid prolonged standing and/or dangling of legs. When seated, feet should be elevated at chest level. Frequent ambulation is encouraged. Diet: Patient encouraged to increase protein intake while taking caution to avoid high carbohydrate and/or sugar intake. We discussed at length nutritious options for protein intake. The patient admits he frequently eats fast food/carry out. Healthy eating habits encouraged. Smoking: The risks of smoking and benefits of smoking cessation have again been discussed with the patient today. The patient has been encouraged to quit smoking, or at least drastically reduce his smoking. If smoking cessation aids are desired, the patient should contact their primary care provider to discuss appropriate options. Labs/cultures/imaging: Doxycycline completed. Due to the presence of mild arterial disease at the left ankle level (site of wound) he was referred to a vascular specialist for consultation. He has not called to schedule. X-ray of the left ankle was unremarkable aside from postoperative changes of fusion of the ankle mortise and fusion of the tibia to the fibula. Left ankle MRI was ordered and is scheduled for 11/30/2021. Follow-up: Return to clinic in 1 week for re-evaluation. Return sooner or report to the emergency room should symptoms worsen, or new symptoms arise. Note: [employer] speech recognition looper operator software was used to create portions of this document. Sound-alike and misspelled words, as well as other looper operator errors may be contained in the documentation.
== END 2021-11-22 23:59 | disposition home or self-care (01) ==
LOC: WC 09:30
PROVIDERS: PCP Internal Medicine; Referring Provider Nurse Practitioner Family; Visit Provider Nurse Practitioner Family
DX: I83.023 Varicose veins of left lower extremity with ulcer of ankle (principal); Z94.4 Liver transplant status; L97.322 Non-pressure chronic ulcer of 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; N18.32 Chronic kidney disease, stage 3b; Z72.0 Tobacco use; Z87.81 Personal history of (healed) traumatic fracture
CPT/HCPCS: 11042; 36415; 80053; 84134; 85025; 85652; 86140

== ENCOUNTER → 2021-11-30 | Outpatient (CLI) | payer MEDICARE, SELFPAY ==
--- NOTE | 2021-11-30 08:30 | MRI_ITS ---
STUDY: MRI LEFT ANKLE WITH AND WITHOUT CONTRAST REASON FOR EXAM: Male, 81 years old. and quot;Trinity sized and quot; Non-healing wound LEFT medial ankle, diabetes, Hx of ankle fracture in the with screw placement, infection and screw removal TECHNIQUE: Standardized fat and water weighted pulse sequences were obtained in all 3 orthogonal planes. Post contrast sequences were also acquired. COMPARISON: X-ray of the left ankle dated October 19, 2021. MRI of the left ankle dated June 28, 2004. FINDINGS: Reidentification of bony fusion/ankylosis across the ankle mortise/tibiotalar and talocalcaneal articulations. Mild to moderate degenerative narrowing and reactive signal is present at the talonavicular articulation with a small effusion. Mild degenerative narrowing and subchondral cystic changes of the calcaneocuboid articulation. No acute fracture is seen. Mild subcutaneous edema is present around the ankle joint. No visualized focal fluid collection/abscess. Mild postsurgical scarring is seen around the posterior tibialis tendon which also demonstrates some areas of focal thinning and partial tearing proximal to the insertion of the navicular bone. Area of focal skin thickening/flat ulceration is also present over the medial side of ankle joint measuring 1.53 cm in diameter, however no sinus tract is seen leading into the underlying soft tissues. There is no evidence of osteomyelitis or cortical erosion or bony destruction. No abnormal enhancement of the bony structures is seen other than reactive/degenerative findings. Normal flexor digitorum longus tendon. Normal flexor hallucis longus tendon. Normal peroneus longus and brevis tendons. Normal tibialis anterior tendon. Normal extensor hallucis longus tendon. Normal extensor digitorum longus tendons. There is tendinosis with intratendinous tendon degeneration of the anterior aspect of the distal half of the Achilles tendon without a partial or full-thickness tear. Normal plantar fascia. Normal plantar calcaneal tubercles. Normal intrinsic muscles of the rearfoot. Normal distal tibiofibular syndesmotic ligamentous complex. There is a complete rupture of the anterior talofibular ligament (ATFL). Normal subtalar ligaments and sinus tarsi. Normal deltoid ligamentous complexes. Normal plantar calcaneonavicular (spring) ligament. Normal tibiotalar articulation. Normal talar dome. Normal subtalar articulations. Normal talonavicular articulation. Normal calcaneocuboid articulation. Normal navicular-cuneiform articulations. MRI/Lower Ext Joint Only W/WO Cont IMPRESSION: 1. Area of focal skin thickening/flat ulceration is also present over the medial side of ankle joint measuring 1.53 cm in diameter, however no sinus tract is seen leading into the underlying soft tissues. 2. There is no evidence of osteomyelitis or cortical erosion or bony destruction. No abnormal enhancement of the bony structures is seen other than reactive/degenerative findings. 3. Achilles tendinosis 4. Partial tearing of the posterior tibialis tendon Electronically Signed: Sanju Hdez MD at 8:50 EDT ,
== END | disposition home or self-care (01) ==
LOC: MRI 07:53
PROVIDERS: PCP Internal Medicine; Referring Provider Nurse Practitioner Family; Visit Provider Nurse Practitioner Family
DX: I83.023 Varicose veins of left lower extremity with ulcer of ankle (principal); L97.322 Non-pressure chronic ulcer of 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; N18.32 Chronic kidney disease, stage 3b; S86.019A Strain of unspecified Achilles tendon, initial encounter; X58.XXXA Exposure to other specified factors, initial encounter; Z72.0 Tobacco use; Z87.81 Personal history of (healed) traumatic fracture
CPT/HCPCS: 11042; 73723; A9575

== ENCOUNTER 2021-12-21 09:00 | Outpatient (RCR) | payer MEDICARE, SELFPAY ==
[2021-11-23 00:20] VITALS: BP 146/60; PULSE 60; RESP 18; TEMP 36.1; BMI 21.7
[2021-11-23 09:40] VITALS: BP 148/54; PULSE 63; TEMP 36; BMI 21.7
--- NOTE | 2021-11-23 10:02 | PCM.WC.PN ---
History of Present Illness Date of Service: 11/23/21 Chief Complaint: left medial ankle ulcer History of Wound: Viral is a pleasant 81-year-old male who presents to the wound healing center for an initial evaluation of his left medial ankle ulcer. He has a past medical history significant for liver transplant (in 1998), thrombocytopenia, stage III CKD, tobacco abuse, and left ankle fracture (in 1959). He states that following his ankle fracture in 1959, a screw was placed in his left ankle. The left ankle screw subsequently became infected and was removed. Since that time, he has had frequent occurrence of left ankle ulcers. These ulcers have occurred at various sites within the medial left ankle region. He has previously been seen by [facility] wound care for his left ankle ulcers. He states that this particular left medial ankle ulcer onset approximately 2 months ago. He has been using Anasept ointment daily to his medial left ankle ulcer (which he had previously received from [facility] wound center). He is washing his ankle ulcer with antibacterial soap and water. He does not use compression. The patient denies fever, chills, general malaise, or poor appetite. The patient has not had increased redness, swelling, or purulent/malodorous drainage from affected area. He has not had any recent wound cultures. He had lab work in April 2021, which was reviewed today, and was significant for chronic kidney disease (creatinine 1.70, estimated GFR 39), and low platelets (130). He reports that at some point he did undergo vascular studies of his lower extremities at the [facility], but does not recall when these were completed. Progress of Wound: Wound is unchanged in size and appearance in the past week. He is tolerating the use of PHM dressing and collagen powder well. The patient denies fever, chills, general malaise, or poor appetite. The patient has not had increased redness, swelling, or purulent/malodorous drainage from affected area. He has not yet scheduled with vascular, stating that he lost the phone number. His MRI is scheduled for next 11/30/2021. Objective Data Objective Data Vital Signs: Vital Signs Temp Pulse Resp BP 96.8 F L 63 18 148/54 H 11/23/21 09:40 11/23/21 09:40 11/23/21 00:20 11/23/21 09:40 Weight: 135 lb Body Mass Index (BMI) 21.7 Charges/Coding Procedures Integumentary [id number]: [id number] Lary subq tissue 20 sq cm/< Physical Exam Const alert, no apparent distress and healthy appearing General Appearance: cooperative, comfortable and well kempt Nutritional Appearance: thin HEENT Head and Scalp: normocephalic and atraumatic Eyes EOMs intact bilaterally Neck supple Resp normal respiratory effort, normal air movement and no use of accessory muscles Extremity normal capillary refill, no joint enlargement and no calf tenderness General Extremity: Negative for edema Peripheral Pulses: Yes dorsalis pedis pulses present left 1+ Skin General Skin Exam: venous stasis Wounds: wounds noted No malodorous Wound Narrative: Medial left ankle ulcer with subcutaneous layer exposed. Scant amount of devitalized tissue present. No tunneling, undermining, or probing to bone. No periulcer erythema or warmth. No significant tenderness to palpation. No purulent/malodorous drainage. Erythematous rash of left boss/calf area has resolved. No significant warmth to touch. Dry, scaling skin of the distal left leg has improved. Neuro moves all extremities and no focal motor deficits Psych mental status grossly normal, cooperative and affect normal Debridement Note Debridement Note Wound debrided: Left medial ankle Laterality: Left Type of Debridement: Excisional debridement Anesthesia Used: 4% Lidocaine Solution Depth: in the subcutaneous layer Percentage of wound debrided: 100 Instrument Used: 3mm curette Tissue Removed: Slough and devitalized tissue Severity: Fat Layer Exposed Amount of bleeding with debridement: Mild Bleeding Controlled with: Pressure Patient tolerated procedure: Patient tolerated procedure well Post-Debridement Measurements and Additional Note: Post-Debridement Measurements/Treatment - Nurse 1 - General Ulcer Assessment Start: 11/23/21 09:40 Freq: Status: Active Protocol: [email or web address] Activity Type Activity Date Activity User E-Sign Co-Sign Detail Recorded Client Recorded Date Recorded By Document 11/23/21 09:40 RODGER [id number] 11/23/21 09:44 RODGER 11/23/21 09:40 - Today's Visit Information Type of service Follow-up Visit (Physician/BUDGET ACCOUNTANT ) Arrival Mode Ambulatory Patient Identification Verified (Name & Yes ) Height and Weight Body Mass Index (BMI) 21.7 BMI Classification Normal Vital Signs Temperature (97.8 F-99.1 F) 96.8 F L Temperature Source Temporal Pulse Rate (60-100) 63 Pulse Location Monitor Blood Pressure (90/60-120/80) 148/54 H Blood Pressure Mean (mm Hg) 85 Source Monitor Position Semi-Fowlers Blood Pressure Location Right Arm History Since Last Visit- (Skip if this is Patient's initial visit) Have you changed medications since your No last visit? Any new allergies or adverse reactions No Had a fall/change in ADL's that may No increase risk of falls Signs or symptoms of abuse and/or No neglect since last visit Have you been in the hospital since your No last visit? Has dressing in place as prescribed Yes Has compression in place as prescribed Yes Has offloadiing in place as prescribed N/A Experienced any changes in pain level or No management Left Footwear Regular Shoe Right Footwear Regular Shoe Pain Scale: 0-10 Numeric Is Patient Pain Free? Yes WC - Nurse 1 - General Ulcer Measurement Start: 11/23/21 09:40 Freq: Status: Active Protocol: Activity Type Activity Date Activity User E-Sign Co-Sign Detail Recorded Client Recorded Date Recorded By Document 11/23/21 09:40 RODGER [id number] 11/23/21 09:44 KR 11/23/21 09:40 Wound Center Nurse 1 #1 L medial ankle -Current Size (cm) - Length 1 -Current Size (cm) - Width 1.8 -Current Size (cm) - Depth 0.1 -Total Square Cm 1.8 -Exudate Amt Small -Exudate Type Serosanguineous -Wound Margin Distinct, Outline Attached -Necrosis Amt Large (67-100%) -Necrotic Tissue Type Adherent Slough -Texture (Prema-wound Skin Appearance) Assessed, Scarring -Moisture (Prema-wound Skin Appearance) Assessed,Dry/ Scaly -Color (Prema-wound Skin Appearance) No Abnormality, Assessed -Temperature (Prema-wound Skin No Abnormality Appearance) (Pt Warm) -Tenderness on Palpation (Prema-wound No Skin Appearance) -Ulcer Cleansing Rinsed/ Irrigated with Saline -Foul Odor after Cleansing No -Anesthetic Used 5% Lidocaine Gel Left Calf (cm) 25 Left Ankle (cm) 21 Assessment/Plan Assessment/Plan (1) Venous stasis ulcer of 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: CODE(S): I83.023 - Varicose veins of left lower extremity with ulcer of ankle; L97.322 - Non-pressure chronic ulcer of 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 QUALIFIERS: Varicose vein presence: with varicose veins Qualified Code(s): I83.023 - Varicose veins of left lower extremity with ulcer of ankle; L97.322 - Non-pressure chronic ulcer of 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 (2) Tobacco use: CODE(S): Z72.0 - Tobacco use (3) Stage III chronic kidney disease: CODE(S): N18.30 - Chronic kidney disease, stage 3 unspecified QUALIFIERS: Chronic kidney disease stage 3 subtype: stage 3b (GFR 30-44) Qualified Code(s): N18.32 - Chronic kidney disease, stage 3b (4) History of fracture of left ankle: CODE(S): Z87.81 - Personal history of (healed) traumatic fracture PLAN: Debridement performed today in clinic as annotated above. The patient's wound continues to be overall unchanged in size. Given the duration of the wound and failure of the wound to respond to standard wound care, we applied for advanced skin substitutes (EpiFix) and were approved. The patient has received 6 applications of EpiFix thus far. EpiFix will not be applied today. Due to concern for bioburden, I will have the patient continue PHMB dressing and collagen powder. This was applied in clinic. At home wound-care instructions: Perform daily dressing changes with PHMB dressing and collagen powder. Wash wound thoroughly with antibacterial soap and water prior to each dressing change. Compression: Double Tubigrip to left lower extremity, to be worn daily. Off-loading: Avoid prolonged standing and/or dangling of legs. When seated, feet should be elevated at chest level. Frequent ambulation is encouraged. Diet: Patient encouraged to increase protein intake while taking caution to avoid high carbohydrate and/or sugar intake. We have discussed at length nutritious options for protein intake. The patient admits he frequently eats fast food/carry out. Healthy eating habits have been encouraged. Smoking: The risks of smoking and benefits of smoking cessation have again been discussed with the patient today. The patient has been encouraged to quit smoking, or at least drastically reduce his smoking. If smoking cessation aids are desired, the patient was advised to contact their primary care provider to discuss appropriate options. Labs/cultures/imaging: Doxycycline completed, though patient now reports that this caused two lesions to develop on his face, and also caused tingling of his extremities. Due to nonhealing wound, repeat cultures were collected today. Due to the presence of mild arterial disease at the left ankle level (site of wound) he was referred to a vascular specialist for consultation. He has not called to schedule. The number for Dr. Pinto was again given to the patient. X-ray of the left ankle was unremarkable aside from postoperative changes of fusion of the ankle mortise and fusion of the tibia to the fibula. Left ankle MRI was ordered and is scheduled for 11/30/2021. Follow-up: Return to clinic in 1 week for re-evaluation. Return sooner or report to the emergency room should symptoms worsen, or new symptoms arise. Note: [employer] speech recognition fat pressroom worker software was used to create portions of this document. Sound-alike and misspelled words, as well as other fat pressroom worker errors may be contained in the documentation.
[2021-11-30 10:40] VITALS: BP 119/66; PULSE 72; TEMP 36; BMI 21.7
--- NOTE | 2021-11-30 13:10 | PN.PCM_ITS ---
History of Present Illness Date of Service: 11/30/21 Chief Complaint: left medial ankle ulcer History of Wound: Viral is a pleasant 81-year-old male who presents to the wound healing center for an initial evaluation of his left medial ankle ulcer. He has a past medical history significant for liver transplant (in 1998), thrombocytopenia, stage III CKD, tobacco abuse, and left ankle fracture (in 1959). He states that following his ankle fracture in 1959, a screw was placed in his left ankle. The left ankle screw subsequently became infected and was removed. Since that time, he has had frequent occurrence of left ankle ulcers. These ulcers have occurred at various sites within the medial left ankle region. He has previously been seen by [facility] wound care for his left ankle ulcers. He states that this particular left medial ankle ulcer onset approximately 2 mo nths ago. He has been using Anasept ointment daily to his medial left ankle ulcer (which he had previously received from [facility] wound center). He is washing his ankle ulcer with antibacterial soap and water. He does not use compression. The patient denies fever, chills, general malaise, or poor appetite. The patient has not had increased redness, swelling, or purulent/malodorous drainage from affected area. He has not had any recent wound cultures. He had lab work in April 2021, which was reviewed today, and was significant for chronic kidney disease (creatinine 1.70, estimated GFR 39), and low platelets (130). He reports that at some point he did undergo vascular studies of his lower extremities at the [facility], but does not recall when these were completed. Progress of Wound: Wound is unchanged in size and appearance in the past week. The patient's wound culture from 11/23/2021 showed 1+ Staphylococcus pseudoint ermedius. He was instructed to begin gentamicin ointment in place of PHMB dressing and collagen powder, but misunderstood these instructions, and has been continuing his PHMB dressing and collagen powder, and applying gentamicin ointment to the periulcer area. The patient denies fever, chills, general malaise, or poor appetite. The patient has not had increased redness, swelling, or purulent/malodorous drainage from affected area. He has not yet scheduled with vascular. His MRI was completed this morning, but report is not yet available. Objective Data Objective Data Vital Signs: Vital Signs Temp Pulse Resp BP 96.8 F L 72 18 119/66 11/30/21 10:40 11/30/21 10:40 11/23/21 00:20 11/30/21 10:40 Weight: 135 lb Body Mass Index (BMI) 21.7 Lab / Micro Data Micro: Microbiology 11/23/21 10:00 Wound Abcess - Leg, Left Gram Stain - Final 11/23/21 10:00 Wound Abcess - Leg, Left Wound Culture - Final Staphylococcus pseudintermediu 11/23/21 10:00 Wound Abcess - Leg, Left Anaerobic Culture - Final No anaerobic bacteria isolated. Charges/Coding Procedures Integumentary [id number]: [id number] Lary subq tissue 20 sq cm/< Physical Exam Const alert, no apparent distress and healthy appearing General Appearance: cooperative, comfortable and well kempt Nutritional Appearance: thin HEENT Head and Scalp: normocephalic and atraumatic Eyes EOMs intact bilaterally Neck supple Resp normal respiratory effort, normal air movement and no use of accessory muscles Extremity normal capillary refill, no joint enlargement and no calf tenderness General Extremity: Negative for edema Peripheral Pulses: Yes dorsalis pedis pulses present left 1+ Skin General Skin Exam: venous stasis Wounds: wounds noted No malodorous Wound Narrative: Medial left ankle ulcer with subcutaneous layer exposed. Scant amount of devitalized tissue present. No tunneling, undermining, or probing to bone. No periulcer erythema or warmth. No significant tenderness to palpation. No purulent/malodorous drainage. Erythematous rash of left boss/calf area has resolved. No significant warmth to touch. Dry, scaling skin of the distal left leg has improved. Neuro moves all extremities and no focal motor deficits Psych mental status grossly normal, cooperative and affect normal Debridement Note Debridement Note Wound debrided: Medial left ankle Laterality: Left Type of Debridement: Excisional debridement Anesthesia Used: 4% Lidocaine Solution Depth: in the subcutaneous layer Percentage of wound debrided: 100 Instrument Used: 3mm curette Tissue Removed: Slough and devitalized tissue Severity: Fat Layer Exposed Amount of bleeding with debridement: Mild Bleeding Controlled with: Pressure Patient tolerated procedure: Patient tolerated procedure well Post-Debridement Measurements and Additional Note: Post-Debridement Measurements/Treatment WC - Nurse 1 - General Ulcer Assessment Start: 11/23/21 09:40 Freq: Status: Active Protocol: BYRON Activity Type Activity Date Activity User E-Sign Co-Sign Detail Recorded Client Recorded Date Recorded By Document 11/23/21 09:40 RODGER [id number] 11/23/21 09:44 KR Document 11/30/21 10:40 KR [id number] 11/30/21 10:46 KR 11/23/21 11/30/21 09:40 10:40 - Today's Visit Information Type of service Follow-up Visit Follow-up Visit (Physician/[employer]ALEO MANAGER (Physician/[employer] TALEO MANAGER ) ) Arrival Mode Ambulatory Ambulatory Patient Identification Verified (Name & Yes Yes ) Height and Weight Body Mass Index (BMI) 21.7 21.7 BMI Classification Normal Normal Vital Signs Temperature (97.8 F-99.1 F) 96.8 F L 96.8 F L Temperature Source Temporal Temporal Pulse Rate (60-100) 63 72 Pulse Location Monitor Monitor Blood Pressure (90/60-120/80) 148/54 H 119/66 Blood Pressure Mean (mm Hg) 85 83 Source Monitor Monitor Position Semi-Fowlers Semi-Fowlers Blood Pressure Location Right Arm Right Arm History Since Last Visit- (Skip if this is Patient's initial visit) Have you changed medications since your No No last visit? Any new allergies or adverse reactions No No Had a fall/change in ADL's that may No No increase risk of falls Signs or symptoms of abuse and/or No No neglect since last visit Have you been in the hospital since your No No last visit? Has dressing in place as prescribed Yes Yes Has compression in place as prescribed Yes Yes Has offloadiing in place as prescribed N/A N/A Experienced any changes in pain level or No No management Left Footwear Regular Shoe Regular Shoe Right Footwear Regular Shoe Regular Shoe Pain Scale: 0-10 Numeric Is Patient Pain Free? Yes Yes - Nurse 1 - General Ulcer Measurement Start: 11/23/21 09:40 Freq: Status: Active Protocol: Activity Type Activity Date Activity User E-Sign Co-Sign Detail Recorded Client Recorded Date Recorded By Document 11/23/21 09:40 RODGER [id number] 11/23/21 09:44 KR Document 11/30/21 10:40 RODGER [id number] 11/30/21 10:46 KR 11/23/21 11/30/21 09:40 10:40 Wound Center Nurse 1 #1 L medial ankle -Current Size (cm) - Length 1 1.6 -Current Size (cm) - Width 1.8 1.6 -Current Size (cm) - Depth 0.1 0.2 -Total Square Cm 1.8 2.56 -Exudate Amt Small Small -Exudate Type Serosanguineous Serosanguineous -Wound Margin Distinct, Distinct, Outline Outline Attached Attached -Granulation Amt Small (1-33%) -Granulation Quality [place] -Necrosis Amt Large (67-100%) Medium (34-66%) -Necrotic Tissue Type Adherent Slough Adherent Slough -Texture (Prema-wound Skin Appearance) Assessed, Assessed, Scarring Scarring -Moisture (Prema-wound Skin Appearance) Assessed,Dry/ Assessed,Dry/ Scaly Scaly -Color (Prema-wound Skin Appearance) No Abnormality, No Abnormality, Assessed Assessed -Temperature (Prema-wound Skin No Abnormality No Abnormality Appearance) (Pt Warm) (Pt Warm) -Tenderness on Palpation (Prema-wound No No Skin Appearance) -Ulcer Cleansing Rinsed/ Rinsed/ Irrigated with Irrigated with Saline Saline -Foul Odor after Cleansing No No -Anesthetic Used 5% Lidocaine 5% Lidocaine Gel Gel Left Calf (cm) 25 26.7 Left Ankle (cm) 21 22 - Nurse 2 - General Ulcer CM Notes Start: 11/23/21 09:40 Freq: Status: Active Protocol: Activity Type Activity Date Activity User E-Sign Co-Sign Detail Recorded Client Recorded Date Recorded By Document 11/23/21 10:51 JEY [id number] 11/23/21 10:52 PL Document 11/30/21 13:01 [id number] 11/30/21 13:02 PL 11/23/21 11/30/21 10:51 13:01 Wound Center Nurse 2 #1 L medial ankle -Time 09:50 11:05 -Correct Patient Yes Yes -Correct Side, Site, Position Yes Yes -Correct Procedure Yes Yes -Procedure Performed Yes Yes -Type of Procedure Debridement Debridement -Clinical Debridement Subcutaneous Subcutaneous -Tissue Removed Subcutaneous Subcutaneous -Post Debridement (cm) - Length 1.1 1.1 -Post Debridement (cm) - Width 1.7 1.7 -Post Debridement (cm) - Depth 0.2 0.2 -Total Square (Post) (cm) 1.87 1.87 -Area of Debridement (cm) - Length 1.1 1.1 -Area of Debridement (cm) - Width 1.7 1.7 -Total Square (Area) (cm) 1.87 1.87 -Tunneling No No -Undermining/Tunneling No No -Circular Undermining No No -Wound/Ulcer Outcome Not Healed Not Healed -Ulcer Cleansing Rinsed/ Rinsed/ Irrigated with Irrigated with Saline Saline -Foul Odor after Cleansing No No -Bioengineered Tissue No No -Bleeding Controlled with Pressure Pressure -Treatment Response Procedure Procedure Tolerated Well Tolerated Well -Debridement - Subq, 1st 20sq cm Yes Yes Pain Scale: 0-10 Numeric Is Patient Pain Free? Yes Yes - Nurse 3 - General Ulcer D/C NN Start: 11/23/21 09:40 Freq: Status: Active Protocol: Activity Type Activity Date Activity User E-Sign Co-Sign Detail Recorded Client Recorded Date Recorded By Document 11/23/21 10:21 KR [id number] 11/23/21 10:23 KR Document 11/30/21 11:32 KR [id number] 11/30/21 11:32 KR 11/23/21 11/30/21 10:21 11:32 Wound Care Nurse 3 #1 L medial ankle -Ulcer Cleansing Rinsed/ Rinsed/ Irrigated with Irrigated with Saline Saline -Other Dressing collagen Powder and AMD -Primary Dressing Covered/Secured with Dry Gauze & Dry Gauze, Roll Gauze, Secured with Secured with Tape Tape Pain Scale: 0-10 Numeric Is Patient Pain Free? Yes Yes - Visit Discharge Discharge Condition Stable Stable Ambulatory Status Ambulatory Ambulatory Transportation Private Auto Private Auto Assessment/Plan Assessment/Plan (1) Venous stasis ulcer of 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: CODE(S): I83.023 - Varicose veins of left lower extremity with ulcer of ankle; L97.322 - Non-pressure chronic ulcer of 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 QUALIFIERS: Varicose vein presence: with varicose veins Qualified Code(s): I83.023 - Varicose veins of left lower extremity with ulcer of ankle; L97.322 - Non-pressure chronic ulcer of 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 (2) Tobacco use: CODE(S): Z72.0 - Tobacco use (3) Stage III chronic kidney disease: CODE(S): N18.30 - Chronic kidney disease, stage 3 unspecified QUALIFIERS: Chronic kidney disease stage 3 subtype: stage 3b (GFR 30-44) Qualified Code(s): N18.32 - Chronic kidney disease, stage 3b (4) History of fracture of left ankle: CODE(S): Z87.81 - Personal history of (healed) traumatic fracture PLAN: Debridement performed today in clinic as annotated above. The patient's wound continues to be overall unchanged in size. Given the duration of the wound and failure of the wound to respond to standard wound care, we applied for advanced skin substitutes (EpiFix) and were approved. The patient has received 6 applications of EpiFix thus far. EpiFix will not be applied today. PHMB dressing and collagen powder will be held for the next 1 to 2 weeks. I will have him begin gentamicin ointment twice daily to the wound bed, covered with gauze. At home wound-care instructions: Perform gentamicin ointment and gauze dressing changes daily. Wash wound thoroughly with antibacterial soap and water prior to each dressing change. Compression: Double Tubigrip to left lower extremity, to be worn daily. Off-loading: Avoid prolonged standing and/or dangling of legs. When seated, feet should be elevated at chest level. Frequent ambulation is encouraged. Diet: Patient encouraged to increase protein intake while taking caution to avoid high carbohydrate and/or sugar intake. We have discussed at length nutritious options for protein intake. The patient admits he frequently eats fast food/carry out. Healthy eating habits have been encouraged. Smoking: The risks of smoking and benefits of smoking cessation have again been discussed with the patient today. The patient has been encouraged to quit smoking, or at least drastically reduce his smoking. If smoking cessation aids are desired, the patient was advised to contact their primary care provider to discuss appropriate options. Labs/cultures/imaging: Doxycycline completed, though patient now reports that this caused two lesions to develop on his face, and also caused tingling of his extremities. Due to nonhealing wound, repeat cultures were collected today. Due to the presence of mild arterial disease at the left ankle level (site of wound) he was referred to a vascular specialist for consultation. He has not called to schedule. The number for Dr. Pinto was again given to the patient. X-ray of the left ankle was unremarkable aside from postoperative changes of fusion of the ankle mortise and fusion of the tibia to the fibula. Left ankle MRI was completed this morning, report is not yet available. Wound culture from 11/23/2021 revealed 1+ Staphylococcus pseudointermedius, and he has been started on gentamicin. Follow-up: Return to clinic in 1 week for re-evaluation. Return sooner or report to the emergency room should symptoms worsen, or new symptoms arise. Note: [employer] speech recognition java programmer analyst software was used to create portions of this document. Sound-alike and misspelled words, as well as other java programmer analyst errors may be contained in the documentation.
[2021-12-07 09:53] VITALS: BP 153/64; PULSE 57; TEMP 35.7; BMI 21.7
--- NOTE | 2021-12-07 10:15 | PCM.WC.PN ---
History of Present Illness Date of Service: 12/07/21 Chief Complaint: left medial ankle ulcer History of Wound: Viral is a pleasant 81-year-old male who presents to the wound healing center for an initial evaluation of his left medial ankle ulcer. He has a past medical history significant for liver transplant (in 1998), thrombocytopenia, stage III CKD, tobacco abuse, and left ankle fracture (in 1959). He states that following his ankle fracture in 1959, a screw was placed in his left ankle. The left ankle screw subsequently became infected and was removed. Since that time, he has had frequent occurrence of left ankle ulcers. These ulcers have occurred at various sites within the medial left ankle region. He has previously been seen by [facility] wound care for his left ankle ulcers. He states that this particular left medial ankle ulcer onset approximately 2 months ago. He has been using Anasept ointment daily to his medial left ankle ulcer (which he had previously received from [facility] wound center). He is washing his ankle ulcer with antibacterial soap and water. He does not use compression. The patient denies fever, chills, general malaise, or poor appetite. The patient has not had increased redness, swelling, or purulent/malodorous drainage from affected area. He has not had any recent wound cultures. He had lab work in April 2021, which was reviewed today, and was significant for chronic kidney disease (creatinine 1.70, estimated GFR 39), and low platelets (130). He reports that at some point he did undergo vascular studies of his lower extremities at the [facility], but does not recall when these were completed. Progress of Wound: Ulcer is unchanged in size, though appearance is somewhat improved in the last week. He has been compliant with the use of gentamicin ointment to the ulcer. He reports a decrease in drainage from the wound in the past week. The patient's wound culture from 11/23/2021 showed 1+ Staphylococcus pseudointermedius. The patient denies fever, chills, general malaise, or poor appetite. The patient has not had increased redness, swelling, or purulent/malodorous drainage from affected area. He is to call back next Friday to schedule with vascular, as their computers were down when he called on this past Friday. His MRI did not reveal any evidence of osteomyelitis or cortical erosion or bony destruction. No sinus tracts were seen leading into the underlying soft tissues. His MRI did demonstrate Achilles tendinosis and partial tearing of the posterior tibialis tendon. Patient was made aware of these results. He states he has been eating protein bars in efforts to increase his protein intake. Objective Data Objective Data Vital Signs: Vital Signs Temp Pulse Resp BP 96.2 F L 57 L 18 153/64 H 12/07/21 09:53 12/07/21 09:53 11/23/21 00:20 12/07/21 09:53 Weight: 135 lb Body Mass Index (BMI) 21.7 Lab / Micro Data Micro: Microbiology 11/23/21 10:00 Wound Abcess - Leg, Left Gram Stain - Final 11/23/21 10:00 Wound Abcess - Leg, Left Wound Culture - Final Staphylococcus pseudintermediu 11/23/21 10:00 Wound Abcess - Leg, Left Anaerobic Culture - Final No anaerobic bacteria isolated. Charges/Coding Procedures Integumentary [id number]: [id number] Lary subq tissue 20 sq cm/< Physical Exam Const alert, no apparent distress and healthy appearing General Appearance: cooperative, comfortable and well kempt Nutritional Appearance: thin HEENT Head and Scalp: normocephalic and atraumatic Eyes EOMs intact bilaterally Neck supple Resp normal respiratory effort, normal air movement and no use of accessory muscles Extremity normal capillary refill, no joint enlargement and no calf tenderness General Extremity: edema left lower extremity trace Peripheral Pulses: Yes dorsalis pedis pulses present left 1+ Skin General Skin Exam: venous stasis Wounds: wounds noted No malodorous Wound Narrative: Medial left ankle ulcer with subcutaneous layer exposed. Scant amount of devitalized tissue present. No tunneling, undermining, or probing to bone. No periulcer erythema or warmth. No significant tenderness to palpation. No purulent/malodorous drainage. Neuro moves all extremities and no focal motor deficits Psych mental status grossly normal, cooperative and affect normal Debridement Note Debridement Note Wound debrided: Left medial ankle ulcer Laterality: Left Type of Debridement: Excisional debridement Anesthesia Used: 4% Lidocaine Solution Depth: in the subcutaneous layer Percentage of wound debrided: 100 Instrument Used: 3mm curette Tissue Removed: Slough and devitalized tissue Severity: Fat Layer Exposed Amount of bleeding with debridement: Mild Bleeding Controlled with: Pressure Patient tolerated procedure: Patient tolerated procedure well Post-Debridement Measurements and Additional Note: Post-Debridement Measurements/Treatment - Nurse 1 - General Ulcer Assessment Start: 11/23/21 09:40 Freq: Status: Active Protocol: BYRON Activity Type Activity Date Activity User E-Sign Co-Sign Detail Recorded Client Recorded Date Recorded By Document 11/23/21 09:40 KR [id number] 11/23/21 09:44 KR Document 11/30/21 10:40 KR [id number] 11/30/21 10:46 KR Document 12/07/21 09:53 AK [id number] 12/07/21 09:56 AK 11/23/21 11/30/21 12/07/21 09:40 10:40 09:53 - Today's Visit Information Type of service Follow-up Visit Follow-up Visit Follow-up Visit (Physician/ICD 9 CODER (Physician/ICD 9 CODER (Physician/ICD 9 CODER ) ) ) Arrival Mode Ambulatory Ambulatory Ambulatory Patient Identification Verified (Name & Yes Yes Yes ) Patient Requires Transmission-Based No Precautions Height and Weight Body Mass Index (BMI) 21.7 21.7 21.7 BMI Classification Normal Normal Normal Vital Signs Temperature (97.8 F-99.1 F) 96.8 F L 96.8 F L 96.2 F L Temperature Source Temporal Temporal Temporal Pulse Rate (60-100) 63 72 57 L Pulse Location Monitor Monitor Monitor Blood Pressure (90/60-120/80) 148/54 H 119/66 153/64 H Blood Pressure Mean (mm Hg) 85 83 93 Source Monitor Monitor Monitor Position Semi-Fowlers Semi-Fowlers Blood Pressure Location Right Arm Right Arm History Since Last Visit- (Skip if this is Patient's initial visit) Have you changed medications since your No No No last visit? Any new allergies or adverse reactions No No No Had a fall/change in ADL's that may No No No increase risk of falls Signs or symptoms of abuse and/or No No neglect since last visit Have you been in the hospital since your No No No last visit? Has dressing in place as prescribed Yes Yes Yes Has compression in place as prescribed Yes Yes Yes Has offloadiing in place as prescribed N/A N/A N/A Experienced any changes in pain level or No No No management Left Footwear Regular Shoe Regular Shoe Right Footwear Regular Shoe Regular Shoe Regular Shoe Pain Scale: 0-10 Numeric Is Patient Pain Free? Yes Yes Yes WC - Nurse 1 - General Ulcer Measurement Start: 11/23/21 09:40 Freq: Status: Active Protocol: Activity Type Activity Date Activity User E-Sign Co-Sign Detail Recorded Client Recorded Date Recorded By Document 11/23/21 09:40 KR [id number] 11/23/21 09:44 KR Document 11/30/21 10:40 KR [id number] 11/30/21 10:46 KR Document 12/07/21 09:53 AK [id number] 12/07/21 09:56 AK 11/23/21 11/30/21 12/07/21 09:40 10:40 09:53 Wound Center Nurse 1 #1 L medial ankle -Current Size (cm) - Length 1 1.6 1.3 -Current Size (cm) - Width 1.8 1.6 2 -Current Size (cm) - Depth 0.1 0.2 0.3 -Total Square Cm 1.8 2.56 2.6 -Photo Taken No -Tunneling No -Undermining/Tunneling No -Circular Undermining No -Change in Wound Grade/Stage No -Exudate Amt Small Small Medium -Exudate Type Serosanguineous Serosanguineous Serosanguineous -Wound Margin Distinct, Distinct, Distinct, Outline Outline Outline Attached Attached Attached -Granulation Amt Small (1-33%) Medium (34-66%) -Granulation Quality [place] Pale,[place] -Slough/Fibrin Yes -Necrosis Amt Large (67-100%) Medium (34-66%) Small (1-33%) -Necrotic Tissue Type Adherent Slough Adherent Slough Adherent Slough -Structure Exposed N/A -Texture (Prema-wound Skin Appearance) Assessed, Assessed, No Abnormality, Scarring Scarring Assessed -Moisture (Prema-wound Skin Appearance) Assessed,Dry/ Assessed,Dry/ Scaly Scaly -Color (Prema-wound Skin Appearance) No Abnormality, No Abnormality, Assessed, Assessed Assessed Hemosiderin Staining -Temperature (Prema-wound Skin No Abnormality No Abnormality No Abnormality Appearance) (Pt Warm) (Pt Warm) (Pt Warm) -Tenderness on Palpation (Prema-wound No No Yes Skin Appearance) -Ulcer Cleansing Rinsed/ Rinsed/ Rinsed/ Irrigated with Irrigated with Irrigated with Saline Saline Saline -Foul Odor after Cleansing No No No -Anesthetic Used 5% Lidocaine 5% Lidocaine 5% Lidocaine Gel Gel Gel Left Calf (cm) 25 26.7 Left Ankle (cm) 21 22 WC - Nurse 2 - General Ulcer CM Notes Start: 11/23/21 09:40 Freq: Status: Active Protocol: Activity Type Activity Date Activity User E-Sign Co-Sign Detail Recorded Client Recorded Date Recorded By Document 11/23/21 10:51 PL [id number] 11/23/21 10:52 PL Document 11/30/21 13:01 PL [id number] 11/30/21 13:02 PL Document 12/07/21 10:12 PL Desktop 12/07/21 10:13 PL 11/23/21 11/30/21 12/07/21 10:51 13:01 10:12 Wound Center Nurse 2 #1 L medial ankle -Time 09:50 11:05 10:05 -Correct Patient Yes Yes Yes -Correct Side, Site, Position Yes Yes Yes -Correct Procedure Yes Yes Yes -Procedure Performed Yes Yes Yes -Type of Procedure Debridement Debridement Debridement -Clinical Debridement Subcutaneous Subcutaneous Subcutaneous -Tissue Removed Subcutaneous Subcutaneous Subcutaneous -Post Debridement (cm) - Length 1.1 1.1 1.1 -Post Debridement (cm) - Width 1.7 1.7 1.7 -Post Debridement (cm) - Depth 0.2 0.2 0.2 -Total Square (Post) (cm) 1.87 1.87 1.87 -Area of Debridement (cm) - Length 1.1 1.1 1.1 -Area of Debridement (cm) - Width 1.7 1.7 1.7 -Total Square (Area) (cm) 1.87 1.87 1.87 -Tunneling No No No -Undermining/Tunneling No No No -Circular Undermining No No No -Wound/Ulcer Outcome Not Healed Not Healed Not Healed -Ulcer Cleansing Rinsed/ Rinsed/ Rinsed/ Irrigated with Irrigated with Irrigated with Saline Saline Saline -Foul Odor after Cleansing No No No -Bioengineered Tissue No No No -Bleeding Controlled with Pressure Pressure Pressure -Treatment Response Procedure Procedure Procedure Tolerated Well Tolerated Well Tolerated Well -Debridement - Subq, 1st 20sq cm Yes Yes Yes Pain Scale: 0-10 Numeric Is Patient Pain Free? Yes Yes Yes - Nurse 3 - General Ulcer D/C NN Start: 11/23/21 09:40 Freq: Status: Active Protocol: Activity Type Activity Date Activity User E-Sign Co-Sign Detail Recorded Client Recorded Date Recorded By Document 11/23/21 10:21 KR [id number] 11/23/21 10:23 KR Document 11/30/21 11:32 KR [id number] 11/30/21 11:32 KR 11/23/21 11/30/21 10:21 11:32 Wound Care Nurse 3 #1 L medial ankle -Ulcer Cleansing Rinsed/ Rinsed/ Irrigated with Irrigated with Saline Saline -Other Dressing collagen Powder and AMD -Primary Dressing Covered/Secured with Dry Gauze & Dry Gauze, Roll Gauze, Secured with Secured with Tape Tape Pain Scale: 0-10 Numeric Is Patient Pain Free? Yes Yes WC - Visit Discharge Discharge Condition Stable Stable Ambulatory Status Ambulatory Ambulatory Transportation Private Auto Private Auto Assessment/Plan Assessment/Plan (1) Venous stasis ulcer of 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: CODE(S): I83.023 - Varicose veins of left lower extremity with ulcer of ankle; L97.322 - Non-pressure chronic ulcer of 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 QUALIFIERS: Varicose vein presence: with varicose veins Qualified Code(s): I83.023 - Varicose veins of left lower extremity with ulcer of ankle; L97.322 - Non-pressure chronic ulcer of 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 (2) Tobacco use: CODE(S): Z72.0 - Tobacco use (3) Stage III chronic kidney disease: CODE(S): N18.30 - Chronic kidney disease, stage 3 unspecified QUALIFIERS: Chronic kidney disease stage 3 subtype: stage 3b (GFR 30-44) Qualified Code(s): N18.32 - Chronic kidney disease, stage 3b (4) History of fracture of left ankle: CODE(S): Z87.81 - Personal history of (healed) traumatic fracture PLAN: Debridement performed today in clinic as annotated above. The patient's wound continues to be overall unchanged in size. Given the duration of the wound and failure of the wound to respond to standard wound care, we applied for advanced skin substitutes (EpiFix) and were approved. The patient has received 6 applications of EpiFix thus far. EpiFix will not be applied today. I will have him continue gentamicin ointment twice daily to the wound bed, covered with gauze. At home wound-care instructions: Perform gentamicin ointment and gauze dressing changes daily. Wash wound thoroughly with antibacterial soap and water prior to each dressing change. Compression: Single Tubigrip to left lower extremity, to be worn daily. Off-loading: Avoid prolonged standing and/or dangling of legs. When seated, feet should be elevated at chest level. Frequent, short periods of ambulation encouraged. Diet: Patient encouraged to increase protein intake while taking caution to avoid high carbohydrate and/or sugar intake. We have discussed at length nutritious options for protein intake. The patient admits he frequently eats fast food/carry out. Healthy eating habits have been encouraged. He has started eating protein bars to increase his protein intake. Samples of protein shakes and Mikey supplied today. Smoking: The risks of smoking and benefits of smoking cessation have again been discussed with the patient today. The patient has been encouraged to quit smoking, or at least drastically reduce his smoking. If smoking cessation aids are desired, the patient was advised to contact their primary care provider to discuss appropriate options. Labs/cultures/imaging: Due to the presence of mild arterial disease at the left ankle level (site of wound) he was referred to a vascular specialist for consultation. He is to call back on Friday to schedule with Dr. Pinto. X-ray of the left ankle was unremarkable aside from postoperative changes of fusion of the ankle mortise and fusion of the tibia to the fibula. Left ankle MRI revealed no evidence of osteomyelitis, cortical erosion, bony destruction, or sinus tracts into soft tissue; Achilles tendinosis and partial tearing of the posterior tibialis tendon were noted. Wound culture from 11/23/2021 revealed 1+ Staphylococcus pseudointermedius, and he has been started on gentamicin. Follow-up: Return to clinic in 1 week for re-evaluation. Return sooner or report to the emergency room should symptoms worsen, or new symptoms arise. Note: [employer] speech recognition gas plant technician software was used to create portions of this document. Sound-alike and misspelled words, as well as other gas plant technician errors may be contained in the documentation.
[2021-12-14 09:46] VITALS: BP 139/56; PULSE 74; TEMP 36.7; BMI 21.7
--- NOTE | 2021-12-14 12:13 | PN.PCM_ITS ---
History of Present Illness Date of Service: 12/14/21 Chief Complaint: left medial ankle ulcer History of Wound: Viral is a pleasant 81-year-old male who presents to the wound healing center for an initial evaluation of his left medial ankle ulcer. He has a past medical history significant for liver transplant (in 1998), thrombocytopenia, stage III CKD, tobacco abuse, and left ankle fracture (in 1959). He states that following his ankle fracture in 1959, a screw was placed in his left ankle. The left ankle screw subsequently became infected and was removed. Since that time, he has had frequent occurrence of left ankle ulcers. These ulcers have occurred at various sites within the medial left ankle region. He has previously been seen by [facility] wound care for his left ankle ulcers. He states that this particular left medial ankle ulcer onset approximately 2 mo nths ago. He has been using Anasept ointment daily to his medial left ankle ulcer (which he had previously received from [facility] wound center). He is washing his ankle ulcer with antibacterial soap and water. He does not use compression. The patient denies fever, chills, general malaise, or poor appetite. The patient has not had increased redness, swelling, or purulent/malodorous drainage from affected area. He has not had any recent wound cultures. He had lab work in April 2021, which was reviewed today, and was significant for chronic kidney disease (creatinine 1.70, estimated GFR 39), and low platelets (130). He reports that at some point he did undergo vascular studies of his lower extremities at the [facility], but does not recall when these were completed. Progress of Wound: Ulcer is unchanged in size, though appearance continues to be somewhat improved with the use of gentamicin ointment. He has been compliant with the use of gentamicin ointment to the ulcer. He reports a decrease in drainage from the wound since starting gentamicin ointment. The patient's wound culture from 11/23/2021 showed 1+ Staphylococcus pseudointermedius. The patient denies fever, chills, general malaise, or poor appetite. The patient has not had increased redness, swelling, or purulent/malodorous drainage from affected area. He states he called to schedule his vascular appointment again last week, and was again told that their scheduling system is down. He is to call back next Friday or Friday to schedule. He states he used all of the protein supplements he was provided last week as samples, and we will try to obtain these routine use. Objective Data Objective Data Vital Signs: Vital Signs Temp Pulse Resp BP 98.0 F 74 18 139/56 H 12/14/21 09:46 12/14/21 09:46 11/23/21 00:20 12/14/21 09:46 Weight: 135 lb Body Mass Index (BMI) 21.7 Lab / Micro Data Micro: Microbiology 11/23/21 10:00 Wound Abcess - Leg, Left Gram Stain - Final 11/23/21 10:00 Wound Abcess - Leg, Left Wound Culture - Final Staphylococcus pseudintermediu 11/23/21 10:00 Wound Abcess - Leg, Left Anaerobic Culture - Final No anaerobic bacteria isolated. Charges/Coding Procedures Integumentary [id number]: [id number] Lary subq tissue 20 sq cm/< Physical Exam Const alert, no apparent distress and healthy appearing General Appearance: cooperative, comfortable and well kempt Nutritional Appearance: thin HEENT Head and Scalp: normocephalic and atraumatic Eyes EOMs intact bilaterally Neck supple Resp normal respiratory effort, normal air movement and no use of accessory muscles Extremity normal capillary refill, no joint enlargement and no calf tenderness General Extremity: edema left lower extremity trace Peripheral Pulses: Yes dorsalis pedis pulses present left diminished Skin General Skin Exam: venous stasis Wounds: wounds noted No malodorous Wound Narrative: Medial left ankle ulcer with subcutaneous layer exposed. Scant amount of devitalized tissue present. No tunneling, undermining, or probing to bone. No periulcer erythema or warmth. No significant tenderness to palpation. No purulent/malodorous drainage. Neuro moves all extremities and no focal motor deficits Psych mental status grossly normal, cooperative and affect normal Debridement Note Debridement Note Wound debrided: Medial left ankle ulcer Laterality: Left Type of Debridement: Excisional debridement Anesthesia Used: 4% Lidocaine Solution Depth: in the subcutaneous layer Percentage of wound debrided: 100 Instrument Used: 3mm curette Tissue Removed: Slough and devitalized tissue Severity: Fat Layer Exposed Amount of bleeding with debridement: Mild Bleeding Controlled with: Pressure Patient tolerated procedure: Patient tolerated procedure well Post-Debridement Measurements and Additional Note: Post-Debridement Measurements/Treatment WC - Nurse 1 - General Ulcer Assessment Start: 11/23/21 09:40 Freq: Status: Active Protocol: WC.LOWEXT Activity Type Activity Date Activity User E-Sign Co-Sign Detail Recorded Client Recorded Date Recorded By Document 11/23/21 09:40 KR [id number] 11/23/21 09:44 KR Document 11/30/21 10:40 KR [id number] 11/30/21 10:46 KR Document 12/07/21 09:53 AK [id number] 12/07/21 09:56 AK Document 12/14/21 09:46 KR [id number] 12/14/21 09:50 KR 11/23/21 11/30/21 12/07/21 09:40 10:40 09:53 WC - Today's Visit Information Type of service Follow-up Visit Follow-up Visit Follow-up Visit (Physician/SENIOR SALESFORCE DEVELOPER (Physician/SENIOR SALESFORCE DEVELOPER (Physician/SENIOR SALESFORCE DEVELOPER ) ) ) Arrival Mode Ambulatory Ambulatory Ambulatory Patient Identification Verified (Name & Yes Yes Yes ) Patient Requires Transmission-Based No Precautions Height and Weight Body Mass Index (BMI) 21.7 21.7 21.7 BMI Classification Normal Normal Normal Vital Signs Temperature (97.8 F-99.1 F) 96.8 F L 96.8 F L 96.2 F L Temperature Source Temporal Temporal Temporal Pulse Rate (60-100) 63 72 57 L Pulse Location Monitor Monitor Monitor Blood Pressure (90/60-120/80) 148/54 H 119/66 153/64 H Blood Pressure Mean (mm Hg) 85 83 93 Source Monitor Monitor Monitor Position Semi-Fowlers Semi-Fowlers Blood Pressure Location Right Arm Right Arm History Since Last Visit- (Skip if this is Patient's initial visit) Have you changed medications since your No No No last visit? Any new allergies or adverse reactions No No No Had a fall/change in ADL's that may No No No increase risk of falls Signs or symptoms of abuse and/or No No neglect since last visit Have you been in the hospital since your No No No last visit? Has dressing in place as prescribed Yes Yes Yes Has compression in place as prescribed Yes Yes Yes Has offloadiing in place as prescribed N/A N/A N/A Experienced any changes in pain level or No No No management Left Footwear Regular Shoe Regular Shoe Right Footwear Regular Shoe Regular Shoe Regular Shoe Pain Scale: 0-10 Numeric Is Patient Pain Free? Yes Yes Yes 12/14/21 09:46 WC - Today's Visit Information Type of service Follow-up Visit (Physician/SENIOR SALESFORCE DEVELOPER ) Arrival Mode Ambulatory Patient Identification Verified (Name & Yes ) Patient Requires Transmission-Based Precautions Height and Weight Body Mass Index (BMI) 21.7 BMI Classification Normal Vital Signs Temperature (97.8 F-99.1 F) 98.0 F Temperature Source Temporal Pulse Rate (60-100) 74 Pulse Location Monitor Blood Pressure (90/60-120/80) 139/56 H Blood Pressure Mean (mm Hg) 83 Source Monitor Position Sitting Blood Pressure Location Left Arm History Since Last Visit- (Skip if this is Patient's initial visit) Have you changed medications since your No last visit? Any new allergies or adverse reactions No Had a fall/change in ADL's that may No increase risk of falls Signs or symptoms of abuse and/or No neglect since last visit Have you been in the hospital since your No last visit? Has dressing in place as prescribed Yes Has compression in place as prescribed Yes Has offloadiing in place as prescribed N/A Experienced any changes in pain level or No management Left Footwear Regular Shoe Right Footwear Regular Shoe Pain Scale: 0-10 Numeric Is Patient Pain Free? Yes - Nurse 1 - General Ulcer Measurement Start: 11/23/21 09:40 Freq: Status: Active Protocol: Activity Type Activity Date Activity User E-Sign Co-Sign Detail Recorded Client Recorded Date Recorded By Document 11/23/21 09:40 RODGER [id number] 11/23/21 09:44 KR Document 11/30/21 10:40 KR [id number] 11/30/21 10:46 KR Document 12/07/21 09:53 AK [id number] 12/07/21 09:56 AK Document 12/14/21 09:46 KR [id number] 12/14/21 09:50 KR 11/23/21 11/30/21 12/07/21 09:40 10:40 09:53 Wound Center Nurse 1 #1 L medial ankle -Current Size (cm) - Length 1 1.6 1.3 -Current Size (cm) - Width 1.8 1.6 2 -Current Size (cm) - Depth 0.1 0.2 0.3 -Total Square Cm 1.8 2.56 2.6 -Photo Taken No -Tunneling No -Undermining/Tunneling No -Circular Undermining No -Change in Wound Grade/Stage No -Exudate Amt Small Small Medium -Exudate Type Serosanguineous Serosanguineous Serosanguineous -Wound Margin Distinct, Distinct, Distinct, Outline Outline Outline Attached Attached Attached -Granulation Amt Small (1-33%) Medium (34-66%) -Granulation Quality Hanover Pale,[place]over -Slough/Fibrin Yes -Necrosis Amt Large (67-100%) Medium (34-66%) Small (1-33%) -Necrotic Tissue Type Adherent Slough Adherent Slough Adherent Slough -Structure Exposed N/A -Texture (Prema-wound Skin Appearance) Assessed, Assessed, No Abnormality, Scarring Scarring Assessed -Moisture (Prema-wound Skin Appearance) Assessed,Dry/ Assessed,Dry/ Scaly Scaly -Color (Prema-wound Skin Appearance) No Abnormality, No Abnormality, Assessed, Assessed Assessed Hemosiderin Staining -Temperature (Prema-wound Skin No Abnormality No Abnormality No Abnormality Appearance) (Pt Warm) (Pt Warm) (Pt Warm) -Tenderness on Palpation (Prema-wound No No Yes Skin Appearance) -Ulcer Cleansing Rinsed/ Rinsed/ Rinsed/ Irrigated with Irrigated with Irrigated with Saline Saline Saline -Foul Odor after Cleansing No No No -Anesthetic Used 5% Lidocaine 5% Lidocaine 5% Lidocaine Gel Gel Gel Left Calf (cm) 25 26.7 Left Ankle (cm) 12/14/21 09:46 Wound Center Nurse 1 #1 L medial ankle -Current Size (cm) - Length 1.8 -Current Size (cm) - Width 1.3 -Current Size (cm) - Depth 0.3 -Total Square Cm 2.34 -Photo Taken -Tunneling -Undermining/Tunneling -Circular Undermining -Change in Wound Grade/Stage -Exudate Amt Small -Exudate Type Serosanguineous -Wound Margin Distinct, Outline Attached -Granulation Amt Large (67-100%) -Granulation Quality [place] -Slough/Fibrin -Necrosis Amt None Present (0 %) -Necrotic Tissue Type -Structure Exposed -Texture (Prema-wound Skin Appearance) Assessed, Scarring -Moisture (Prema-wound Skin Appearance) Assessed,Dry/ Scaly -Color (Prema-wound Skin Appearance) No Abnormality, Assessed -Temperature (Prema-wound Skin No Abnormality Appearance) (Pt Warm) -Tenderness on Palpation (Prema-wound No Skin Appearance) -Ulcer Cleansing Rinsed/ Irrigated with Saline -Foul Odor after Cleansing No -Anesthetic Used 5% Lidocaine Gel Left Calf (cm) Left Ankle (cm) WC - Nurse 2 - General Ulcer CM Notes Start: 11/23/21 09:40 Freq: Status: Active Protocol: Activity Type Activity Date Activity User E-Sign Co-Sign Detail Recorded Client Recorded Date Recorded By Document 11/23/21 10:51 PL [id number] 11/23/21 10:52 PL Document 11/30/21 13:01 PL [id number] 11/30/21 13:02 PL Document 12/07/21 10:12 PL Desktop 12/07/21 10:13 PL 11/23/21 11/30/21 12/07/21 10:51 13:01 10:12 Wound Center Nurse 2 #1 L medial ankle -Time 09:50 11:05 10:05 -Correct Patient Yes Yes Yes -Correct Side, Site, Position Yes Yes Yes -Correct Procedure Yes Yes Yes -Procedure Performed Yes Yes Yes -Type of Procedure Debridement Debridement Debridement -Clinical Debridement Subcutaneous Subcutaneous Subcutaneous -Tissue Removed Subcutaneous Subcutaneous Subcutaneous -Post Debridement (cm) - Length 1.1 1.1 1.1 -Post Debridement (cm) - Width 1.7 1.7 1.7 -Post Debridement (cm) - Depth 0.2 0.2 0.2 -Total Square (Post) (cm) 1.87 1.87 1.87 -Area of Debridement (cm) - Length 1.1 1.1 1.1 -Area of Debridement (cm) - Width 1.7 1.7 1.7 -Total Square (Area) (cm) 1.87 1.87 1.87 -Tunneling No No No -Undermining/Tunneling No No No -Circular Undermining No No No -Wound/Ulcer Outcome Not Healed Not Healed Not Healed -Ulcer Cleansing Rinsed/ Rinsed/ Rinsed/ Irrigated with Irrigated with Irrigated with Saline Saline Saline -Foul Odor after Cleansing No No No -Bioengineered Tissue No No No -Bleeding Controlled with Pressure Pressure Pressure -Treatment Response Procedure Procedure Procedure Tolerated Well Tolerated Well Tolerated Well -Debridement - Subq, 1st 20sq cm Yes Yes Yes Pain Scale: 0-10 Numeric Is Patient Pain Free? Yes Yes Yes - Nurse 3 - General Ulcer D/C NN Start: 11/23/21 09:40 Freq: Status: Active Protocol: Activity Type Activity Date Activity User E-Sign Co-Sign Detail Recorded Client Recorded Date Recorded By Document 11/23/21 10:21 KR [id number] 11/23/21 10:23 KR Document 11/30/21 11:32 KR [id number] 11/30/21 11:32 KR Document 12/07/21 10:16 AK [id number] 12/07/21 10:18 AK Document 12/14/21 10:35 KR [id number] 12/14/21 10:35 KR 11/23/21 11/30/21 12/07/21 10:21 11:32 10:16 Wound Care Nurse 3 #1 L medial ankle -Ulcer Cleansing Rinsed/ Rinsed/ Irrigated with Irrigated with Saline Saline -Primary Dressing Applied C Hydrogel ($) -Other Dressing collagen Powder and AMD -Primary Dressing Covered/Secured with Dry Gauze & Dry Gauze, Dry Gauze & Roll Gauze, Secured with Roll Gauze, Secured with Tape Secured with Tape Tape Left -Tubular Bandage Single Layer -Size of Tubigrip Used Size D -Size D ($) 1 Pain Scale: 0-10 Numeric Is Patient Pain Free? Yes Yes Yes WC - Visit Discharge Discharge Condition Stable Stable Stable Ambulatory Status Ambulatory Ambulatory Ambulatory Transportation Private Auto Private Auto Private Auto Medication Reconcilliation completed & Yes provided to patient/care provider Clinical Summary of Care Provided Yes 12/14/21 10:35 Wound Care Nurse 3 #1 L medial ankle -Ulcer Cleansing Rinsed/ Irrigated with Saline -Primary Dressing Applied -Other Dressing -Primary Dressing Covered/Secured with Dry Gauze, Secured with Tape Left -Tubular Bandage -Size of Tubigrip Used -Size D ($) Pain Scale: 0-10 Numeric Is Patient Pain Free? Yes WC - Visit Discharge Discharge Condition Stable Ambulatory Status Ambulatory Transportation Private Auto Medication Reconcilliation completed & provided to patient/care provider Clinical Summary of Care Provided Assessment/Plan Assessment/Plan (1) Venous stasis ulcer of 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: CODE(S): I83.023 - Varicose veins of left lower extremity with ulcer of ankle; L97.322 - Non-pressure chronic ulcer of 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 QUALIFIERS: Varicose vein presence: with varicose veins Qualified Code(s): I83.023 - Varicose veins of left lower extremity with ulcer of ankle; L97.322 - Non-pressure chronic ulcer of 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 (2) Tobacco use: CODE(S): Z72.0 - Tobacco use (3) Stage III chronic kidney disease: CODE(S): N18.30 - Chronic kidney disease, stage 3 unspecified QUALIFIERS: Chronic kidney disease stage 3 subtype: stage 3b (GFR 30-44) Qualified Code(s): N18.32 - Chronic kidney disease, stage 3b (4) History of fracture of left ankle: CODE(S): Z87.81 - Personal history of (healed) traumatic fracture PLAN: Debridement performed today in clinic as annotated above. The patient's wound continues to be overall unchanged in size. Given the duration of the wound and failure of the wound to respond to standard wound care, we applied for advanced skin substitutes (EpiFix) and were approved. The patient has received 6 applications of EpiFix thus far. EpiFix will not be applied today. I will have him continue gentamicin ointment twice daily to the wound bed, covered with gauze. I will have him cover the wound with Promogran. At home wound-care instructions: Perform gentamicin ointment and Promogran bjorn ssing changes daily. Wash wound thoroughly with antibacterial soap and water prior to each dressing change. Compression: Single Tubigrip to left lower extremity, to be worn daily. Off-loading: Avoid prolonged standing and/or dangling of legs. When seated, feet should be elevated at chest level. Frequent, short periods of ambulation encouraged. Diet: Patient encouraged to increase protein intake while taking caution to avoid high carbohydrate and/or sugar intake. We have discussed at length nutritious options for protein intake, and he has received samples of protein shakes and Mikey. Healthy eating habits have been encouraged. Smoking: The risks of smoking and benefits of smoking cessation have again been discussed with the patient today. The patient has been encouraged to quit sm oking, or at least drastically reduce his smoking. If smoking cessation aids are desired, the patient was advised to contact their primary care provider to discuss appropriate options. Labs/cultures/imaging: Due to the presence of mild arterial disease at the left ankle level (site of wound) he was referred to a vascular specialist for consultation. He is to call back again on Friday/Friday to schedule with Dr. Pinto. X-ray of the left ankle was unremarkable aside from postoperative changes of fusion of the ankle mortise and fusion of the tibia to the fibula. Left ankle MRI revealed no evidence of osteomyelitis, cortical erosion, bony destruction, or sinus tracts into soft tissue; Achilles tendinosis and partial tearing of the posterior tibialis tendon were noted. Wound culture from 11/23/2021 revealed 1+ Staphylococcus pseudointermedius, and he has been started on gentamicin. Follow-up: Return to clinic in 1 week for re-evaluation. Return sooner or report to the emergency room should symptoms worsen, or new symptoms arise. Note: [employer] speech recognition shirt folding machine operator software was used to create portions of this document. Sound-alike and misspelled words, as well as other shirt folding machine operator errors may be contained in the documentation.
[2021-12-21 09:11] VITALS: BP 138/45; PULSE 57; TEMP 36.3; BMI 21.7
--- NOTE | 2021-12-21 12:00 | PCM.WC.PN ---
History of Present Illness Date of Service: 12/21/21 Chief Complaint: left medial ankle ulcer History of Wound: Viral is a pleasant 81-year-old male who presents to the wound healing center for an initial evaluation of his left medial ankle ulcer. He has a past medical history significant for liver transplant (in 1998), thrombocytopenia, stage III CKD, tobacco abuse, and left ankle fracture (in 1959). He states that following his ankle fracture in 1959, a screw was placed in his left ankle. The left ankle screw subsequently became infected and was removed. Since that time, he has had frequent occurrence of left ankle ulcers. These ulcers have occurred at various sites within the medial left ankle region. He has previously been seen by [facility] wound care for his left ankle ulcers. He states that this particular left medial ankle ulcer onset approximately 2 months ago. He has been using Anasept ointment daily to his medial left ankle ulcer (which he had previously received from [facility] wound center). He is washing his ankle ulcer with antibacterial soap and water. He does not use compression. The patient denies fever, chills, general malaise, or poor appetite. The patient has not had increased redness, swelling, or purulent/malodorous drainage from affected area. He has not had any recent wound cultures. He had lab work in April 2021, which was reviewed today, and was significant for chronic kidney disease (creatinine 1.70, estimated GFR 39), and low platelets (130). He reports that at some point he did undergo vascular studies of his lower extremities at the [facility], but does not recall when these were completed. Progress of Wound: Ulcer appears to have significantly epithelialized over the past 1 to 2 weeks, and thickened around the wound margins. He has had no drainage from his wound in the last week. He has been compliant with the use of gentamicin and Promogran. The patient denies fever, chills, general malaise, or poor appetite. The patient has not had increased redness, swelling, or purulent/malodorous drainage from affected area. He is scheduled to see Dr. Pinto (vascular) on 12/11/2021. Objective Data Objective Data Vital Signs: Vital Signs Temp Pulse Resp BP 97.4 F L 57 L 18 138/45 H 12/21/21 09:11 12/21/21 09:11 11/23/21 00:20 12/21/21 09:11 Weight: 135 lb Body Mass Index (BMI) 21.7 Lab / Micro Data Micro: Microbiology 11/23/21 10:00 Wound Abcess - Leg, Left Gram Stain - Final 11/23/21 10:00 Wound Abcess - Leg, Left Wound Culture - Final Staphylococcus pseudintermediu 11/23/21 10:00 Wound Abcess - Leg, Left Anaerobic Culture - Final No anaerobic bacteria isolated. Charges/Coding Procedures Integumentary [id number]: [id number] Lary subq tissue 20 sq cm/< Physical Exam Const alert, no apparent distress and healthy appearing General Appearance: cooperative, comfortable and well kempt Nutritional Appearance: thin HEENT Head and Scalp: normocephalic and atraumatic Eyes EOMs intact bilaterally Neck supple Resp normal respiratory effort, normal air movement and no use of accessory muscles Extremity normal capillary refill, no joint enlargement and no calf tenderness General Extremity: edema left lower extremity trace Peripheral Pulses: Yes dorsalis pedis pulses present left diminished Skin General Skin Exam: venous stasis Wounds: wounds noted No malodorous Wound Narrative: Medial left ankle ulcer with subcutaneous layer exposed, the wound has significantly epithelialized in the past week. Scant amount of devitalized tissue present. No tunneling, undermining, or probing to bone. No periulcer erythema or warmth. No significant tenderness to palpation. No purulent/malodorous drainage. Neuro moves all extremities and no focal motor deficits Psych mental status grossly normal, cooperative and affect normal Debridement Note Debridement Note Wound debrided: Medial left ankle ulcer Laterality: Left Type of Debridement: Excisional debridement Anesthesia Used: 5% Lidocaine Gel Depth: in the subcutaneous layer Percentage of wound debrided: 100 Instrument Used: - (Misonix ultrasonic debridement) Tissue Removed: Slough and devitalized tissue Severity: Fat Layer Exposed Amount of bleeding with debridement: Mild Bleeding Controlled with: Pressure Patient tolerated procedure: Patient tolerated procedure well Post-Debridement Measurements and Additional Note: Post-Debridement Measurements/Treatment WC - Nurse 1 - General Ulcer Assessment Start: 11/23/21 09:40 Freq: Status: Active Protocol: BYRON Activity Type Activity Date Activity User E-Sign Co-Sign Detail Recorded Client Recorded Date Recorded By Document 11/23/21 09:40 KR [id number] 11/23/21 09:44 KR Document 11/30/21 10:40 KR [id number] 11/30/21 10:46 KR Document 12/07/21 09:53 AK [id number] 12/07/21 09:56 AK Document 12/14/21 09:46 KR [id number] 12/14/21 09:50 KR Document 12/21/21 09:11 KR [id number] 12/21/21 09:13 KR 11/23/21 11/30/21 12/07/21 09:40 10:40 09:53 WC - Today's Visit Information Type of service Follow-up Visit Follow-up Visit Follow-up Visit (Physician/STRAW HAT WASHER OPERATOR (Physician/STRAW HAT WASHER OPERATOR (Physician/STRAW HAT WASHER OPERATOR ) ) ) Arrival Mode Ambulatory Ambulatory Ambulatory Patient Identification Verified (Name & Yes Yes Yes ) Patient Requires Transmission-Based No Precautions Height and Weight Body Mass Index (BMI) 21.7 21.7 21.7 BMI Classification Normal Normal Normal Vital Signs Temperature (97.8 F-99.1 F) 96.8 F L 96.8 F L 96.2 F L Temperature Source Temporal Temporal Temporal Pulse Rate (60-100) 63 72 57 L Pulse Location Monitor Monitor Monitor Blood Pressure (90/60-120/80) 148/54 H 119/66 153/64 H Blood Pressure Mean (mm Hg) 85 83 93 Source Monitor Monitor Monitor Position Semi-Fowlers Semi-Fowlers Blood Pressure Location Right Arm Right Arm History Since Last Visit- (Skip if this is Patient's initial visit) Have you changed medications since your No No No last visit? Any new allergies or adverse reactions No No No Had a fall/change in ADL's that may No No No increase risk of falls Signs or symptoms of abuse and/or No No neglect since last visit Have you been in the hospital since your No No No last visit? Has dressing in place as prescribed Yes Yes Yes Has compression in place as prescribed Yes Yes Yes Has offloadiing in place as prescribed N/A N/A N/A Experienced any changes in pain level or No No No management Left Footwear Regular Shoe Regular Shoe Right Footwear Regular Shoe Regular Shoe Regular Shoe Pain Scale: 0-10 Numeric Is Patient Pain Free? Yes Yes Yes 12/14/21 12/21/21 09:46 09:11 - Today's Visit Information Type of service Follow-up Visit Follow-up Visit (Physician/STRAW HAT WASHER OPERATOR (Physician/STRAW HAT WASHER OPERATOR ) ) Arrival Mode Ambulatory Ambulatory Patient Identification Verified (Name & Yes Yes ) Patient Requires Transmission-Based Precautions Height and Weight Body Mass Index (BMI) 21.7 21.7 BMI Classification Normal Normal Vital Signs Temperature (97.8 F-99.1 F) 98.0 F 97.4 F L Temperature Source Temporal Temporal Pulse Rate (60-100) 74 57 L Pulse Location Monitor Monitor Blood Pressure (90/60-120/80) 139/56 H 138/45 H Blood Pressure Mean (mm Hg) 83 76 Source Monitor Monitor Position Sitting Sitting Blood Pressure Location Left Arm Left Arm History Since Last Visit- (Skip if this is Patient's initial visit) Have you changed medications since your No No last visit? Any new allergies or adverse reactions No No Had a fall/change in ADL's that may No No increase risk of falls Signs or symptoms of abuse and/or No No neglect since last visit Have you been in the hospital since your No No last visit? Has dressing in place as prescribed Yes Yes Has compression in place as prescribed Yes Yes Has offloadiing in place as prescribed N/A N/A Experienced any changes in pain level or No No management Left Footwear Regular Shoe Regular Shoe Right Footwear Regular Shoe Regular Shoe Pain Scale: 0-10 Numeric Is Patient Pain Free? Yes Yes - Nurse 1 - General Ulcer Measurement Start: 11/23/21 09:40 Freq: Status: Active Protocol: Activity Type Activity Date Activity User E-Sign Co-Sign Detail Recorded Client Recorded Date Recorded By Document 11/23/21 09:40 KR [id number] 11/23/21 09:44 KR Document 11/30/21 10:40 KR [id number] 11/30/21 10:46 KR Document 12/07/21 09:53 AK [id number] 12/07/21 09:56 AK Document 12/14/21 09:46 KR [id number] 12/14/21 09:50 KR Document 12/21/21 09:11 KR [id number] 12/21/21 09:13 KR 0411/30/21 12/07/21 09:40 10:40 09:53 Wound Center Nurse 1 #1 L medial ankle -Current Size (cm) - Length 1 1.6 1.3 -Current Size (cm) - Width 1.8 1.6 2 -Current Size (cm) - Depth 0.1 0.2 0.3 -Total Square Cm 1.8 2.56 2.6 -Photo Taken No -Tunneling No -Undermining/Tunneling No -Circular Undermining No -Change in Wound Grade/Stage No -Exudate Amt Small Small Medium -Exudate Type Serosanguineous Serosanguineous Serosanguineous -Wound Margin Distinct, Distinct, Distinct, Outline Outline Outline Attached Attached Attached -Granulation Amt Small (1-33%) Medium (34-66%) -Granulation Quality [place] Pale,[place] -Slough/Fibrin Yes -Necrosis Amt Large (67-100%) Medium (34-66%) Small (1-33%) -Necrotic Tissue Type Adherent Slough Adherent Slough Adherent Slough -Structure Exposed N/A -Texture (Prema-wound Skin Appearance) Assessed, Assessed, No Abnormality, Scarring Scarring Assessed -Moisture (Prema-wound Skin Appearance) Assessed,Dry/ Assessed,Dry/ Scaly Scaly -Color (Prema-wound Skin Appearance) No Abnormality, No Abnormality, Assessed, Assessed Assessed Hemosiderin Staining -Temperature (Prema-wound Skin No Abnormality No Abnormality No Abnormality Appearance) (Pt Warm) (Pt Warm) (Pt Warm) -Tenderness on Palpation (Prema-wound No No Yes Skin Appearance) -Ulcer Cleansing Rinsed/ Rinsed/ Rinsed/ Irrigated with Irrigated with Irrigated with Saline Saline Saline -Foul Odor after Cleansing No No No -Anesthetic Used 5% Lidocaine 5% Lidocaine 5% Lidocaine Gel Gel Gel Left Calf (cm) 25 26.7 Left Ankle (cm) 21 12/14/21 12/21/21 09:46 09:11 Wound Center Nurse 1 #1 L medial ankle -Current Size (cm) - Length 1.8 0.9 -Current Size (cm) - Width 1.3 1.5 -Current Size (cm) - Depth 0.3 0.2 -Total Square Cm 2.34 1.35 -Photo Taken -Tunneling -Undermining/Tunneling -Circular Undermining -Change in Wound Grade/Stage -Exudate Amt Small Small -Exudate Type Serosanguineous Yellow/Green -Wound Margin Distinct, Distinct, Outline Outline Attached Attached -Granulation Amt Large (67-100%) Small (1-33%) -Granulation Quality [place] Pale -Slough/Fibrin -Necrosis Amt None Present (0 Small (1-33%) %) -Necrotic Tissue Type Adherent Slough -Structure Exposed -Texture (Prema-wound Skin Appearance) Assessed, Assessed, Scarring Scarring -Moisture (Prema-wound Skin Appearance) Assessed,Dry/ No Abnormality, Scaly Assessed -Color (Prema-wound Skin Appearance) No Abnormality, No Abnormality, Assessed Assessed -Temperature (Prema-wound Skin No Abnormality No Abnormality Appearance) (Pt Warm) (Pt Warm) -Tenderness on Palpation (Prema-wound No No Skin Appearance) -Ulcer Cleansing Rinsed/ Rinsed/ Irrigated with Irrigated with Saline Saline -Foul Odor after Cleansing No No -Anesthetic Used 5% Lidocaine 5% Lidocaine Gel Gel Left Calf (cm) Left Ankle (cm) WC - Nurse 2 - General Ulcer CM Notes Start: 11/23/21 09:40 Freq: Status: Active Protocol: Activity Type Activity Date Activity User E-Sign Co-Sign Detail Recorded Client Recorded Date Recorded By Document 11/23/21 10:51 PL [id number] 11/23/21 10:52 PL Document 11/30/21 13:01 PL [id number] 11/30/21 13:02 PL Document 12/07/21 10:12 PL Desktop 12/07/21 10:13 PL Document 12/14/21 12:25 PL [id number] 12/14/21 12:26 PL 11/23/21 11/30/21 12/07/21 10:51 13:01 10:12 Wound Center Nurse 2 #1 L medial ankle -Time 09:50 11:05 10:05 -Correct Patient Yes Yes Yes -Correct Side, Site, Position Yes Yes Yes -Correct Procedure Yes Yes Yes -Procedure Performed Yes Yes Yes -Type of Procedure Debridement Debridement Debridement -Clinical Debridement Subcutaneous Subcutaneous Subcutaneous -Tissue Removed Subcutaneous Subcutaneous Subcutaneous -Post Debridement (cm) - Length 1.1 1.1 1.1 -Post Debridement (cm) - Width 1.7 1.7 1.7 -Post Debridement (cm) - Depth 0.2 0.2 0.2 -Total Square (Post) (cm) 1.87 1.87 1.87 -Area of Debridement (cm) - Length 1.1 1.1 1.1 -Area of Debridement (cm) - Width 1.7 1.7 1.7 -Total Square (Area) (cm) 1.87 1.87 1.87 -Tunneling No No No -Undermining/Tunneling No No No -Circular Undermining No No No -Wound/Ulcer Outcome Not Healed Not Healed Not Healed -Ulcer Cleansing Rinsed/ Rinsed/ Rinsed/ Irrigated with Irrigated with Irrigated with Saline Saline Saline -Foul Odor after Cleansing No No No -Bioengineered Tissue No No No -Bleeding Controlled with Pressure Pressure Pressure -Treatment Response Procedure Procedure Procedure Tolerated Well Tolerated Well Tolerated Well -Debridement - Subq, 1st 20sq cm Yes Yes Yes Pain Scale: 0-10 Numeric Is Patient Pain Free? Yes Yes Yes 12/14/21 12:25 Wound Center Nurse 2 #1 L medial ankle -Time 09:54 -Correct Patient Yes -Correct Side, Site, Position Yes -Correct Procedure Yes -Procedure Performed Yes -Type of Procedure Debridement -Clinical Debridement Subcutaneous -Tissue Removed Subcutaneous -Post Debridement (cm) - Length 1.1 -Post Debridement (cm) - Width 1.7 -Post Debridement (cm) - Depth 0.2 -Total Square (Post) (cm) 1.87 -Area of Debridement (cm) - Length 1.1 -Area of Debridement (cm) - Width 1.7 -Total Square (Area) (cm) 1.87 -Tunneling No -Undermining/Tunneling No -Circular Undermining No -Wound/Ulcer Outcome Not Healed -Ulcer Cleansing Rinsed/ Irrigated with Saline -Foul Odor after Cleansing No -Bioengineered Tissue No -Bleeding Controlled with Pressure -Treatment Response Procedure Tolerated Well -Debridement - Subq, 1st 20sq cm Yes Pain Scale: 0-10 Numeric Is Patient Pain Free? Yes - Nurse 3 - General Ulcer D/C NN Start: 11/23/21 09:40 Freq: Status: Active Protocol: Activity Type Activity Date Activity User E-Sign Co-Sign Detail Recorded Client Recorded Date Recorded By Document 11/23/21 10:21 KR [id number] 11/23/21 10:23 KR Document 11/30/21 11:32 KR [id number] 11/30/21 11:32 KR Document 12/07/21 10:16 AK [id number] 12/07/21 10:18 AK Document 12/14/21 10:35 KR [id number] 12/14/21 10:35 KR Document 12/21/21 09:53 KR [id number] 12/21/21 09:53 KR 11/23/21 11/30/21 12/07/21 10:21 11:32 10:16 Wound Care Nurse 3 #1 L medial ankle -Ulcer Cleansing Rinsed/ Rinsed/ Irrigated with Irrigated with Saline Saline -Primary Dressing Applied C Hydrogel ($) -Other Dressing collagen Powder and AMD -Primary Dressing Covered/Secured with Dry Gauze & Dry Gauze, Dry Gauze & Roll Gauze, Secured with Roll Gauze, Secured with Tape Secured with Tape Tape -Promogran Left -Tubular Bandage Single Layer -Size of Tubigrip Used Size D -Size D ($) 1 Pain Scale: 0-10 Numeric Is Patient Pain Free? Yes Yes Yes WC - Visit Discharge Discharge Condition Stable Stable Stable Ambulatory Status Ambulatory Ambulatory Ambulatory Transportation Private Auto Private Auto Private Auto Medication Reconcilliation completed & Yes provided to patient/care provider Clinical Summary of Care Provided Yes 12/14/21 12/21/21 10:35 09:53 Wound Care Nurse 3 #1 L medial ankle -Ulcer Cleansing Rinsed/ Rinsed/ Irrigated with Irrigated with Saline Saline -Primary Dressing Applied C Hydrogel ($), Promogran -Other Dressing -Primary Dressing Covered/Secured with Dry Gauze, Dry Gauze, Secured with Secured with Tape Tape -Promogran 1 Left -Tubular Bandage -Size of Tubigrip Used -Size D ($) Pain Scale: 0-10 Numeric Is Patient Pain Free? Yes Yes WC - Visit Discharge Discharge Condition Stable Stable Ambulatory Status Ambulatory Ambulatory Transportation Private Auto Private Auto Medication Reconcilliation completed & provided to patient/care provider Clinical Summary of Care Provided Assessment/Plan Assessment/Plan (1) Venous stasis ulcer of 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: CODE(S): I83.023 - Varicose veins of left lower extremity with ulcer of ankle; L97.322 - Non-pressure chronic ulcer of 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 QUALIFIERS: Varicose vein presence: with varicose veins Qualified Code(s): I83.023 - Varicose veins of left lower extremity with ulcer of ankle; L97.322 - Non-pressure chronic ulcer of 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 (2) Tobacco use: CODE(S): Z72.0 - Tobacco use (3) Stage III chronic kidney disease: CODE(S): N18.30 - Chronic kidney disease, stage 3 unspecified QUALIFIERS: Chronic kidney disease stage 3 subtype: stage 3b (GFR 30-44) Qualified Code(s): N18.32 - Chronic kidney disease, stage 3b (4) History of fracture of left ankle: CODE(S): Z87.81 - Personal history of (healed) traumatic fracture PLAN: Debridement performed today in clinic as annotated above using Misonix ultrasonic debridement. The patient's wound appears to have significantly epithelialized over the past week. Given the duration of the wound and failure of the wound to respond to standard wound care, we applied for advanced skin substitutes (EpiFix) and were approved. The patient has received 6 applications of EpiFix thus far. EpiFix will not be applied today. I will have him continue gentamicin ointment twice daily to the wound bed. I will have him cover the wound with Promogran. At home wound-care instructions: Perform gentamicin ointment and Promogran dressing changes daily. Wash wound thoroughly with antibacterial soap and water prior to each dressing change. Compression: Single Tubigrip to left lower extremity, to be worn daily. Off-loading: Avoid prolonged standing and/or dangling of legs. When seated, feet should be elevated at chest level. Frequent, short periods of ambulation encouraged. Diet: Patient encouraged to increase protein intake while taking caution to avoid high carbohydrate and/or sugar intake. We have discussed at length nutritious options for protein intake, and he has received samples of protein shakes and Mikey. Healthy eating habits have been encouraged. Smoking: The risks of smoking and benefits of smoking cessation have been discussed with the patient. The patient has been encouraged to quit smoking, or at least drastically reduce his smoking. If smoking cessation aids are desired, the patient was advised to contact their primary care provider to discuss appropriate options. Labs/cultures/imaging: Due to the presence of mild arterial disease at the left ankle level (site of wound) he was referred to a vascular specialist for consultation. He is scheduled with Dr. Pinto for 12/11/2021. X-ray of the left ankle was unremarkable aside from postoperative changes of fusion of the ankle mortise and fusion of the tibia to the fibula. Left ankle MRI revealed no evidence of osteomyelitis, cortical erosion, bony destruction, or sinus tracts into soft tissue; Achilles tendinosis and partial tearing of the posterior tibialis tendon were noted. Wound culture from 11/23/2021 revealed 1+ Staphylococcus pseudointermedius, and he has been started on gentamicin. Follow-up: Return to clinic in 2 weeks for re-evaluation. Return sooner or report to the emergency room should symptoms worsen, or new symptoms arise. Note: [employer] speech recognition black studies professor software was used to create portions of this document. Sound-alike and misspelled words, as well as other black studies professor errors may be contained in the documentation.
== END 2021-12-22 23:59 | disposition home or self-care (01) ==
LOC: WC 09:00
PROVIDERS: PCP Internal Medicine; Referring Provider Nurse Practitioner Family; Visit Provider Nurse Practitioner Family
DX: I83.023 Varicose veins of left lower extremity with ulcer of ankle (principal); L97.322 Non-pressure chronic ulcer of 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; N18.32 Chronic kidney disease, stage 3b; S86.019A Strain of unspecified Achilles tendon, initial encounter; X58.XXXA Exposure to other specified factors, initial encounter; Z72.0 Tobacco use; Z87.81 Personal history of (healed) traumatic fracture
CPT/HCPCS: 11042; 87070; 87075; 87186; 87205

== ENCOUNTER 2022-01-11 09:00 | Outpatient (RCR) | payer MEDICARE, SELFPAY ==
[2021-12-23 00:21] VITALS: BP 138/45; PULSE 57; RESP 18; TEMP 36.3; BMI 21.7
[2022-01-04 09:01] VITALS: TEMP 36.2; BMI 21.7
--- NOTE | 2022-01-04 10:35 | PCM.WC.PN ---
History of Present Illness Date of Service: 01/04/22 Chief Complaint: left medial ankle ulcer History of Wound: Viral is a pleasant 81-year-old male who presents to the wound healing center for an initial evaluation of his left medial ankle ulcer. He has a past medical history significant for liver transplant (in 1998), thrombocytopenia, stage III CKD, tobacco abuse, and left ankle fracture (in 1959). He states that following his ankle fracture in 1959, a screw was placed in his left ankle. The left ankle screw subsequently became infected and was removed. Since that time, he has had frequent occurrence of left ankle ulcers. These ulcers have occurred at various sites within the medial left ankle region. He has previously been seen by [facility] wound care for his left ankle ulcers. He states that this particular left medial ankle ulcer onset approximately 2 months ago. He has been using Anasept ointment daily to his medial left ankle ulcer (which he had previously received from [facility] wound center). He is washing his ankle ulcer with antibacterial soap and water. He does not use compression. The patient denies fever, chills, general malaise, or poor appetite. The patient has not had increased redness, swelling, or purulent/malodorous drainage from affected area. He has not had any recent wound cultures. He had lab work in April 2021, which was reviewed today, and was significant for chronic kidney disease (creatinine 1.70, estimated GFR 39), and low platelets (130). He reports that at some point he did undergo vascular studies of his lower extremities at the [facility], but does not recall when these were completed. Progress of Wound: The patient is scheduled to see Dr. Pinto next Friday. He denies drainage from the affected area of his medial left ankle in the past 2 weeks. The patient denies fever, chills, general malaise, or poor appetite. The patient has not had increased redness, swelling, or purulent/malodorous drainage from affected area. Objective Data Objective Data Vital Signs: Vital Signs Temp Pulse Resp BP 97.1 F L 57 L 18 138/45 H 01/04/22 09:01 12/23/21 00:21 12/23/21 00:21 12/23/21 00:21 Weight: 135 lb Body Mass Index (BMI) 21.7 Charges/Coding Visit Charges Office Visits / Consults: 18567 OV L3 Est Physical Exam Const alert, no apparent distress and healthy appearing General Appearance: cooperative, comfortable and well kempt Nutritional Appearance: thin HEENT Head and Scalp: normocephalic and atraumatic Eyes EOMs intact bilaterally Neck supple Resp normal respiratory effort, normal air movement and no use of accessory muscles Extremity normal capillary refill, no joint enlargement and no calf tenderness General Extremity: edema left lower extremity trace Peripheral Pulses: Yes dorsalis pedis pulses present left diminished Skin General Skin Exam: venous stasis Wounds: wounds noted No malodorous Wound Narrative: Medial left ankle ulcer without any apparent exposed subcutaneous tissue. No tunneling, undermining, or probing to bone. No periulcer erythema or warmth. Mild tenderness to palpation along superior anterior edge. No drainage. No malodor. Neuro moves all extremities and no focal motor deficits Psych mental status grossly normal, cooperative and affect normal Debridement Note Debridement Note No debridement was completed: No debridement was completed today Post-Debridement Measurements and Additional Note: Post-Debridement Measurements/Treatment WC - Nurse 1 - General Ulcer Assessment Start: 01/04/22 09:01 Freq: Status: Active Protocol: BYRON Activity Type Activity Date Activity User E-Sign Co-Sign Detail Recorded Client Recorded Date Recorded By Document 01/04/22 09:01 MARCUS [id number] 01/04/22 09:05 MARCUS 01/04/22 09:01 - Today's Visit Information Type of service Follow-up Visit (Physician/DE[employer]ERIFF GENERALIST/BAILIFF ) Arrival Mode Ambulatory Patient Requires Transmission-Based No Precautions Height and Weight Body Mass Index (BMI) 21.7 BMI Classification Normal Vital Signs Temperature (97.8 F-99.1 F) 97.1 F L Temperature Source Temporal History Since Last Visit- (Skip if this is Patient's initial visit) Have you changed medications since your No last visit? Any new allergies or adverse reactions No Signs or symptoms of abuse and/or No neglect since last visit Have you been in the hospital since your No last visit? Has compression in place as prescribed Yes Left Footwear Regular Shoe Right Footwear Regular Shoe Pain Scale: 0-10 Numeric Is Patient Pain Free? Yes WC - Nurse 1 - General Ulcer Measurement Start: 01/04/22 09:01 Freq: Status: Active Protocol: Activity Type Activity Date Activity User E-Sign Co-Sign Detail Recorded Client Recorded Date Recorded By Document 01/04/22 09:01 [id number] 01/04/22 09:05 01/04/22 09:01 Wound Center Nurse 1 #1 L medial ankle -Combined with other wound No -Current Size (cm) - Length 1.3 -Current Size (cm) - Width 1.4 -Current Size (cm) - Depth 0.1 -Total Square Cm 1.82 -Photo Taken No -Epithelialization Large 67-100% -Tunneling No -Undermining/Tunneling No -Circular Undermining No -Exudate Amt Small -Exudate Type Serosanguineous -Wound Margin Flat & Intact -Granulation Amt Large (67-100%) -Granulation Quality [place] -Slough/Fibrin Yes -Necrosis Amt Small (1-33%) -Necrotic Tissue Type Adherent Slough -Structure Exposed N/A -Texture (Prema-wound Skin Appearance) Assessed, Localized Edema -Moisture (Prema-wound Skin Appearance) Assessed,Dry/ Scaly -Color (Prema-wound Skin Appearance) Assessed -Temperature (Prema-wound Skin No Abnormality Appearance) (Pt Warm) -Tenderness on Palpation (Prema-wound No Skin Appearance) -Ulcer Cleansing Rinsed/ Irrigated with Saline -Foul Odor after Cleansing No -Anesthetic Used 4% Lidocaine Solution Lower Limb Edema Present Yes Left Calf (cm) 27 Left Ankle (cm) 1.8 - Nurse 2 - General Ulcer CM Notes Start: 01/04/22 09:01 Freq: Status: Active Protocol: Activity Type Activity Date Activity User E-Sign Co-Sign Detail Recorded Client Recorded Date Recorded By Document 01/04/22 09:25 [id number] 01/04/22 09:26 01/04/22 09:25 Wound Center Nurse 2 #1 L medial ankle -Correct Patient No -Correct Side, Site, Position No -Correct Procedure No -Procedure Performed No -Wound/Ulcer Outcome Not Healed Pain Scale: 0-10 Numeric Is Patient Pain Free? Yes - Nurse 3 - General Ulcer D/C NN Start: 01/04/22 09:01 Freq: Status: Active Protocol: Activity Type Activity Date Activity User E-Sign Co-Sign Detail Recorded Client Recorded Date Recorded By Document 01/04/22 09:27 [id number] 01/04/22 09:28 JF 01/04/22 09:27 Wound Care Nurse 3 #1 L medial ankle -Ulcer Cleansing Rinsed/ Irrigated with Saline -Foul Odor after Cleansing No -Primary Dressing Covered/Secured with Dry Gauze, Secured with Tape Right -Tubular Bandage Single Layer -Size of Tubigrip Used Size D -Size D ($) 0 Pain Scale: 0-10 Numeric Is Patient Pain Free? Yes WC - Visit Discharge Discharge Condition Stable Ambulatory Status Ambulatory Transportation Private Auto Medication Reconcilliation completed & Yes provided to patient/care provider Clinical Summary of Care Provided Yes Assessment/Plan Assessment/Plan (1) Venous stasis ulcer of 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: CODE(S): I83.023 - Varicose veins of left lower extremity with ulcer of ankle; L97.322 - Non-pressure chronic ulcer of 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 QUALIFIERS: Varicose vein presence: with varicose veins Qualified Code(s): I83.023 - Varicose veins of left lower extremity with ulcer of ankle; L97.322 - Non-pressure chronic ulcer of 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 (2) Tobacco use: CODE(S): Z72.0 - Tobacco use (3) Stage III chronic kidney disease: CODE(S): N18.30 - Chronic kidney disease, stage 3 unspecified QUALIFIERS: Chronic kidney disease stage 3 subtype: stage 3b (GFR 30-44) Qualified Code(s): N18.32 - Chronic kidney disease, stage 3b (4) History of fracture of left ankle: CODE(S): Z87.81 - Personal history of (healed) traumatic fracture PLAN: No debridement performed today. No slough or exposed tissue noted. Given the duration of the wound and failure of the wound to respond to standard wound care, we applied for advanced skin substitutes (EpiFix) and were approved. The patient has received 6 applications of EpiFix thus far. EpiFix will not be applied today. I will have him cover the affected area of his left medial ankle with a dry gauze dressing. When he is at home and not wearing socks or shoes, he may leave the area open-to-air. At home wound-care instructions: Change dry gauze dressing once daily, or more frequently as needed. Wash wound thoroughly with antibacterial soap and water prior to each dressing change. Compression: None Off-loading: Avoid prolonged standing and/or dangling of legs. When seated, feet should be elevated at chest level. Frequent, short periods of ambulation encouraged. Diet: Patient encouraged to increase protein intake while taking caution to avoid high carbohydrate and/or sugar intake. We have discussed at length nutritious options for protein intake, and he has received samples of protein shakes and Mikey. Healthy eating habits have been encouraged. Smoking: The risks of smoking and benefits of smoking cessation have been discussed with the patient. The patient has been encouraged to quit smoking, or at least drastically reduce his smoking. If smoking cessation aids are desired, the patient was advised to contact their primary care provider to discuss appropriate options. Labs/cultures/imaging: Due to the presence of mild arterial disease at the left ankle level (site of wound) he was referred to a vascular specialist for consultation. He is scheduled with Dr. Pinto for 01/09/2022. X-ray of the left ankle was unremarkable aside from postoperative changes of fusion of the ankle mortise and fusion of the tibia to the fibula. Left ankle MRI revealed no evidence of osteomyelitis, cortical erosion, bony destruction, or sinus tracts into soft tissue; Achilles tendinosis and partial tearing of the posterior tibialis tendon were noted. Wound culture from 11/23/2021 revealed 1+ Staphylococcus pseudointermedius, and he was started on gentamicin. Follow-up: Return to clinic in 1 week for re-evaluation. Return sooner or report to the emergency room should symptoms worsen, or new symptoms arise. Note: [employer] speech recognition ethical hacker software was used to create portions of this document. Sound-alike and misspelled words, as well as other ethical hacker errors may be contained in the documentation.
[2022-01-11 08:53] VITALS: BP 155/65; PULSE 53; TEMP 35.7; BMI 21.7
--- NOTE | 2022-01-11 11:04 | PN.PCM_ITS ---
History of Present Illness Date of Service: 01/11/22 Chief Complaint: left medial ankle ulcer History of Wound: Viral is a pleasant 81-year-old male who presents to the wound healing center for an initial evaluation of his left medial ankle ulcer. He has a past medical history significant for liver transplant (in 1998), thrombocytopenia, stage III CKD, tobacco abuse, and left ankle fracture (in 1959). He states that following his ankle fracture in 1959, a screw was placed in his left ankle. The left ankle screw subsequently became infected and was removed. Since that time, he has had frequent occurrence of left ankle ulcers. These ulcers have occurred at various sites within the medial left ankle region. He has previously been seen by [facility] wound care for his left ankle ulcers. He states that this particular left medial ankle ulcer onset approximately 2 mo nths ago. He has been using Anasept ointment daily to his medial left ankle ulcer (which he had previously received from [facility] wound center). He is washing his ankle ulcer with antibacterial soap and water. He does not use compression. The patient denies fever, chills, general malaise, or poor appetite. The patient has not had increased redness, swelling, or purulent/malodorous drainage from affected area. He has not had any recent wound cultures. He had lab work in April 2021, which was reviewed today, and was significant for chronic kidney disease (creatinine 1.70, estimated GFR 39), and low platelets (130). He reports that at some point he did undergo vascular studies of his lower extremities at the [facility], but does not recall when these were completed. Progress of Wound: The patient presented to Dr. Pinto's office for his evaluation for his arterial disease, but left before being seen. (He reports he had to fill out 5 pages of paperwork and did not have his glasses with him. He has not rescheduled.) He has been using a dry gauze dressing to the left medial ankle for the past week, and has not had any drainage or concerning signs or symptoms. His left medial ankle ulcer is healed today. Objective Data Objective Data Vital Signs: Vital Signs Temp Pulse Resp BP 96.2 F L 53 L 18 155/65 H 01/11/22 08:53 01/11/22 08:53 12/23/21 00:21 01/11/22 08:53 Weight: 135 lb Body Mass Index (BMI) 21.7 Charges/Coding Visit Charges Office Visits / Consults: 05071 OV L3 Est Physical Exam Const alert, no apparent distress and healthy appearing General Appearance: cooperative, comfortable and well kempt Nutritional Appearance: thin HEENT Head and Scalp: normocephalic and atraumatic Eyes EOMs intact bilaterally Neck supple Resp normal respiratory effort, normal air movement and no use of accessory muscles Extremity normal capillary refill, no joint enlargement and no calf tenderness General Extremity: Negative for edema Peripheral Pulses: Yes dorsalis pedis pulses present left diminished Skin General Skin Exam: venous stasis Wounds: Negative for wounds noted Wound Narrative: Medial left ankle ulcer is healed today. No erythema, warmth, or tenderness. Neuro moves all extremities and no focal motor deficits Psych mental status grossly normal, cooperative and affect normal Debridement Note Debridement Note No debridement was completed: No debridement was completed today Post-Debridement Measurements and Additional Note: Post-Debridement Measurements/Treatment KYARA - Nurse 1 - General Ulcer Assessment Start: 01/04/22 09:01 Freq: Status: Active Protocol: BYRON Activity Type Activity Date Activity User E-Sign Co-Sign Detail Recorded Client Recorded Date Recorded By Document 01/04/22 09:01 MARCUS [id number] 01/04/22 09:05 Document 01/11/22 08:53 TN [id number] 01/11/22 08:58 TN 01/04/22 01/11/22 09:01 08:53 - Today's Visit Information Type of service Follow-up Visit Follow-up Visit (Physician/ASSOCIATE OF SCIENCE IN NURSING (Physician/ASSOCIATE OF SCIENCE IN NURSING ) ) Arrival Mode Ambulatory Ambulatory Patient Identification Verified (Name & Yes ) Patient Requires Transmission-Based No No Precautions Safety Precautions NA Height and Weight Body Mass Index (BMI) 21.7 21.7 BMI Classification Normal Normal Vital Signs Temperature (97.8 F-99.1 F) 97.1 F L 96.2 F L Temperature Source Temporal Temporal Pulse Rate (60-100) 53 L Pulse Location Monitor Blood Pressure (90/60-120/80) 155/65 H Blood Pressure Mean (mm Hg) 95 History Since Last Visit- (Skip if this is Patient's initial visit) Have you changed medications since your No No last visit? Any new allergies or adverse reactions No No Had a fall/change in ADL's that may No increase risk of falls Signs or symptoms of abuse and/or No No neglect since last visit Have you been in the hospital since your No No last visit? Has dressing in place as prescribed Yes Has compression in place as prescribed Yes N/A Has offloadiing in place as prescribed N/A Experienced any changes in pain level or No management Left Footwear Regular Shoe Regular Shoe Right Footwear Regular Shoe Regular Shoe Pain Scale: 0-10 Numeric Is Patient Pain Free? Yes Yes WC - Nurse 1 - General Ulcer Measurement Start: 01/04/22 09:01 Freq: Status: Active Protocol: Activity Type Activity Date Activity User E-Sign Co-Sign Detail Recorded Client Recorded Date Recorded By Document 01/04/22 09:01 MARCUS [id number] 01/04/22 09:05 JF Document 01/11/22 08:53 AK [id number] 01/11/22 08:58 AK 01/04/22 01/11/22 09:01 08:53 Wound Center Nurse 1 #1 L medial ankle -Combined with other wound No No -Current Size (cm) - Length 1.3 1.5 -Current Size (cm) - Width 1.4 2 -Current Size (cm) - Depth 0.1 0.2 -Total Square Cm 1.82 3.0 -Date of Last Picture (Recall this 01/11/22 field) -Photo Taken No Yes -Epithelialization Large 67-100% -Tunneling No No -Undermining/Tunneling No No -Circular Undermining No No -Change in Wound Grade/Stage No -Exudate Amt Small None Present -Exudate Type Serosanguineous -Wound Margin Flat & Intact Distinct, Outline Attached -Granulation Amt Large (67-100%) Large (67-100%) -Granulation Quality [place] Pale[place] -Slough/Fibrin Yes No -Necrosis Amt Small (1-33%) Medium (34-66%) -Necrotic Tissue Type Adherent Slough Adherent Slough -Structure Exposed N/A N/A -Texture (Prema-wound Skin Appearance) Assessed, No Abnormality, Localized Edema Assessed -Moisture (Prema-wound Skin Appearance) Assessed,Dry/ Assessed,Dry/ Scaly Scaly -Color (Prema-wound Skin Appearance) Assessed No Abnormality, Assessed -Temperature (Prema-wound Skin No Abnormality No Abnormality Appearance) (Pt Warm) (Pt Warm) -Tenderness on Palpation (Prema-wound No No Skin Appearance) -Ulcer Cleansing Rinsed/ Rinsed/ Irrigated with Irrigated with Saline Saline -Foul Odor after Cleansing No No -Anesthetic Used 4% Lidocaine 4% Lidocaine Solution Solution Lower Limb Edema Present Yes Left Calf (cm) 27 Left Ankle (cm) 1.8 - Nurse 2 - General Ulcer CM Notes Start: 01/04/22 09:01 Freq: Status: Active Protocol: Activity Type Activity Date Activity User E-Sign Co-Sign Detail Recorded Client Recorded Date Recorded By Document 01/04/22 09:25 [id number] 01/04/22 09:26 Document 01/11/22 09:17 PL Desktop 01/11/22 09:18 PL 01/04/22 01/11/22 09:25 09:17 Wound Center Nurse 2 #1 L medial ankle -Correct Patient No -Correct Side, Site, Position No -Correct Procedure No -Procedure Performed No No -Wound/Ulcer Outcome Not Healed Healed- Epithelialized Pain Scale: 0-10 Numeric Is Patient Pain Free? Yes Yes - Nurse 3 - General Ulcer D/C NN Start: 01/04/22 09:01 Freq: Status: Active Protocol: Activity Type Activity Date Activity User E-Sign Co-Sign Detail Recorded Client Recorded Date Recorded By Document 01/04/22 09:27 [id number] 01/04/22 09:28 01/04/22 09:27 Wound Care Nurse 3 #1 L medial ankle -Ulcer Cleansing Rinsed/ Irrigated with Saline -Foul Odor after Cleansing No -Primary Dressing Covered/Secured with Dry Gauze, Secured with Tape Right -Tubular Bandage Single Layer -Size of Tubigrip Used Size D -Size D ($) 0 Pain Scale: 0-10 Numeric Is Patient Pain Free? Yes - Visit Discharge Discharge Condition Stable Ambulatory Status Ambulatory Transportation Private Auto Medication Reconcilliation completed & Yes provided to patient/care provider Clinical Summary of Care Provided Yes Assessment/Plan Assessment/Plan (1) Venous stasis ulcer of 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: CODE(S): I83.023 - Varicose veins of left lower extremity with ulcer of ankle; L97.322 - Non-pressure chronic ulcer of 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 QUALIFIERS: Varicose vein presence: with varicose veins Qualified Code(s): I83.023 - Varicose veins of left lower extremity with ulcer of ankle; L97.322 - Non-pressure chronic ulcer of 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 (2) Tobacco use: CODE(S): Z72.0 - Tobacco use (3) Stage III chronic kidney disease: CODE(S): N18.30 - Chronic kidney disease, stage 3 unspecified QUALIFIERS: Chronic kidney disease stage 3 subtype: stage 3b (GFR 30-44) Qualified Code(s): N18.32 - Chronic kidney disease, stage 3b (4) History of fracture of left ankle: CODE(S): Z87.81 - Personal history of (healed) traumatic fracture (5) Peripheral arterial occlusive disease: CODE(S): I77.9 - Disorder of arteries and arterioles, unspecified PLAN: The patient's left medial ankle ulcer is healed today. He will be discharged from the wound healing center. As preventive measures: Pad and protect left medial ankle and continue to avoid friction. Avoid prolonged standing and/or dangling of legs. When seated, feet should be elevated at chest level. Frequent, short periods of ambulation is encouraged. Follow-up: He is encouraged to follow-up with vascular return to the wound healing center on an as-needed basis should wounds recur or new wounds develop. Note: [employer] speech recognition [employer] manager software was used to create portions of this document. Sound-alike and misspelled words, as well as other [employer] manager errors may be contained in the documentation.
== END 2022-01-11 13:03 | disposition home or self-care (01) ==
LOC: WC 09:00
PROVIDERS: PCP Internal Medicine; Referring Provider Nurse Practitioner Family; Visit Provider Nurse Practitioner Family
DX: I83.023 Varicose veins of left lower extremity with ulcer of ankle (principal); Z94.4 Liver transplant status; L97.322 Non-pressure chronic ulcer of 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; I73.9 Peripheral vascular disease, unspecified; D69.6 Thrombocytopenia, unspecified; N18.32 Chronic kidney disease, stage 3b; Z72.0 Tobacco use; Z79.899 Other long term (current) drug therapy
CPT/HCPCS: 99213; G0463